=== PATIENT | female | born 1945 | race Caucasian/White ===

== ENCOUNTER 2018-07-27 17:25 | Emergency (ER) | payer OTHER, MEDICARE ==
[~2018-07-27] VITALS: Ht 152.4 cm; Wt 88.5 kg
[2018-07-27 17:25] VITALS: BP_SYST 106
[~2018-07-27 17:25] MED LIST: AMLO5TAB4 PO; CHOL500037 PO; GLU500 PO; HYDR25TA4 PO; LEVO25TA2 PO; LISI-600 PO; LOVA40TA75 PO; PRO20 PO
[2018-07-27 18:00] LABS: BASOPHILS # (AUTO) 0.4 K/uL (0.0-0.2); EOSINOPHILS # (AUTO) 0.2 K/uL (0.0-0.4); MEAN CORPUSCULAR HEMOGLOBIN 34 pg (27-31); MEAN CORPUSCULAR VOLUME 101 fL (79.0-98.0); MONOCYTES # (AUTO) 0.7 K/uL (0.0-1.0); RED CELL DISTRIBUTION WIDTH 11.9 % (9.0-15.0)
[2018-07-27 18:07] LABS: BASOPHILS % (AUTO) 3.5 % (0.0-2.0); EOSINOPHILS % (AUTO) 1.6 % (0.0-4.0); HEMATOCRIT 45.8 % (36-48); HEMOGLOBIN 15.5 g/dL (12.0-16.0); LYMPHOCYTES # (AUTO) 3.3 K/uL (1.0-5.5); LYMPHOCYTES % (AUTO) 33.2 % (20.5-51.5); MEAN CORPUSCULAR HGB CONC 34 % (32-36); MONOCYTES % (AUTO) 7.4 % (1.7-9.3); NEUTROPHILS # (AUTO) 5.4 K/uL (1.8-7.7); NEUTROPHILS % (AUTO) 54.3 % (40.0-70.0); PLATELET COUNT (AUTO) 180 K/uL (130-430); RED BLOOD CELL COUNT(AUTO) 4.52 MIL/uL (4.2-6.2)
[2018-07-27 18:12] LABS: PROTHROMBIN TIME 10.2 SECS (9.5-12.5)
[2018-07-27 18:13] LABS: ANION GAP 15 (5-15); CALCIUM 9.3 mg/dL (8.4-11.0); CHLORIDE 96 mmol/L (98-107); POTASSIUM 4.4 mmol/L (3.5-5.1); SODIUM SERUM 133 mmol/L (136-145); UREA NITROGEN, BLOOD 20 mg/dL (8-21)
[2018-07-27 18:15] LABS: GLUCOSE 477 mg/dL (70-99)
[2018-07-27 18:29] LABS: ALANINE AMINOTRANSFERASE 32 U/L (12-78); ALBUMIN 3.5 g/dL (3.4-4.8); ALCOHOL, BLOOD 167 mg/dL (<10); ASPARTATE AMINOTRANSFERASE 20 U/L (10-37); FREE T4 (FREE THYROXINE) 0.4 ng/dL (0.6-1.6); TOTAL BILIRUBIN 0.5 mg/dL (0.0-1.0)
[2018-07-27] MEDS ORDERED: CANA300T PO (18:31)
[2018-07-27] MEDS ORDERED: CALC1CAP19 PO (18:31)
[2018-07-27] MEDS ORDERED: SITA100T11 PO (18:31)
[2018-07-27] MEDS ORDERED: INSULIN REGULAR, HUMAN 10 UNITS/0.1 ML INJ IVP ONE (18:45)
[2018-07-27 19:40] VITALS: BP_SYST 98
== END 2018-07-27 19:40 | disposition home or self-care (01) ==
LOC: SED 17:25
DX: R53.1 Weakness (principal); R42 Dizziness and giddiness; J45.909 Unspecified asthma, uncomplicated; E11.9 Type 2 diabetes mellitus without complications; I10 Essential (primary) hypertension; E78.5 Hyperlipidemia, unspecified; M19.90 Unspecified osteoarthritis, unspecified site; Z88.0 Allergy status to penicillin; Z88.5 Allergy status to narcotic agent; Z79.899 Other long term (current) drug therapy
CPT/HCPCS: 36415; 71045; 74018; 80053; 82140; 82962; 83605; 83880; 84439; 84484; 85025; 85610; 87040; 93005; 96374; 99285; G0482; J1815

== ENCOUNTER 2019-03-25 19:59 | Inpatient (IN) | payer OTHER, MEDICARE ==
[~2019-03-25] VITALS: Ht 152.4 cm; Wt 81.6 kg
[~2019-03-25 19:59] MED LIST changes: +CALC1CAP19 PO; +CANA300T PO; -GLU500 PO; -HYDR25TA4 PO; +SITA100T11 PO
--- NOTE | 2019-03-25 19:59 | NUR ---
Patient to ER bed 06 to gown for evaluation. Side rails up. Report given to BETTY Tamayo
--- NOTE | 2019-03-25 20:00 | NUR ---
Patient arrived via POV, AAOx4, family brought her in via wheelchair. Patients family states they took her to dinner when she began feeling worse. Patient states she has been feeling bad for approximately 5 days, but today it became worse. Patient states she has had intermittent shortness of breath, general weakness, malaise, and patient had episode where it appears she passed out for approximately 10 seconds, witnessed per family. Patient denies vomiting or diarrhea, but states she has been feeling dizzy and nausea with SOB. Patient states no chest pain, abdominal pain, urinary symptoms. Will continue to follow up and monitor.
--- NOTE | 2019-03-25 20:00 | NUR ---
# 22 gauge angiocath placed to LFA. Use of asceptic technique. Opsite placed over site. Blood return noted. Blood for lab drawn from site. Flushed with 10 cc of normal saline. No evidence of infiltration noted. Patient tolerated well.
[2019-03-25 20:04] VITALS: BP_SYST 108
[2019-03-25] MEDS ORDERED: GLU500 PO (20:10)
[2019-03-25] MEDS ORDERED: ROSU20TA PO (20:10)
--- NOTE | 2019-03-25 20:10 | NUR ---
Medication reconciliation completed with information provided by patient's family. Patient has prescription bottles at bedside. Patient states that she is taking Metfromin 50 mg TID. Any prior medication reconciliation on file was reviewed and corrected.
--- NOTE | 2019-03-25 20:11 | NUR ---
Patient oxygen saturation at 92% on room air, placed on 2L via NC, post O2 98%.
--- NOTE | 2019-03-25 20:27 | NUR ---
ER at bedside examining patient.
[2019-03-25] MEDS ORDERED: NACL 0.9% 1,000 ML IV ONE (20:30)
[2019-03-25 20:41] LABS: BASOPHILS # (AUTO) 0.1 K/uL (0.0-0.2); BASOPHILS % (AUTO) 0.5 % (0.0-2.0); EOSINOPHILS # (AUTO) 0.4 K/uL (0.0-0.4); EOSINOPHILS % (AUTO) 3.1 % (0.0-4.0); HEMATOCRIT 44.7 % (36-48); HEMOGLOBIN 14.6 g/dL (12.0-16.0); LYMPHOCYTES # (AUTO) 3.7 K/uL (1.0-5.5); LYMPHOCYTES % (AUTO) 29.7 % (20.5-51.5); MEAN CORPUSCULAR HEMOGLOBIN 32 pg (27-31); MEAN CORPUSCULAR HGB CONC 33 % (32-36); MEAN CORPUSCULAR VOLUME 99 fL (79.0-98.0); MONOCYTES # (AUTO) 1.3 K/uL (0.0-1.0); MONOCYTES % (AUTO) 10.2 % (1.7-9.3); NEUTROPHILS # (AUTO) 7.1 K/uL (1.8-7.7); NEUTROPHILS % (AUTO) 56.5 % (40.0-70.0); PLATELET COUNT (AUTO) 194 K/uL (130-430); RED BLOOD CELL COUNT(AUTO) 4.51 MIL/uL (4.2-6.2); RED CELL DISTRIBUTION WIDTH 14.2 % (9.0-15.0); WHITE BLOOD COUNT (AUTO) 12.5 K/uL (4.8-10.8)
[2019-03-25 20:48] LABS: ANION GAP 20 (5-15); CALCIUM 9.4 mg/dL (8.4-11.0); CHLORIDE 98 mmol/L (98-107); CREATININE 1.35 mg/dL (0.55-1.30); GLUCOSE 298 mg/dL (70-99); SODIUM SERUM 135 mmol/L (136-145); UREA NITROGEN, BLOOD 21 mg/dL (8-21)
[2019-03-25 21:04] LABS: ALANINE AMINOTRANSFERASE 27 U/L (12-78); ALBUMIN 3.5 g/dL (3.4-4.8); ASPARTATE AMINOTRANSFERASE 19 U/L (10-37); FREE T4 (FREE THYROXINE) 0.6 ng/dL (0.6-1.6); THYROID STIMULATING HORMONE 7.18 uIu/mL (0.34-4.82); TOTAL BILIRUBIN 0.3 mg/dL (0.0-1.0)
[2019-03-25] MEDS ORDERED: NS 500 ML IV ONE (21:45)
[2019-03-25] MEDS ORDERED: GENTAMICIN 120 mg/100 mL NS 100 ML IV ONE (21:45)
[2019-03-25 21:51] LABS: BILIRUBIN,URINE NEGATIVE (NEGATIVE); CLARITY/URINE SL CLOUDY (CLEAR); COLOR,URINE YELLOW (YELLOW); GLUCOSE,URINE TRACE (NEGATIVE); KETONES,URINE TRACE (NEGATIVE); LEUKOCYTE ESTERASE ,URINE NEGATIVE (NEGATIVE); NITRITE, URINE POSITIVE (NEGATIVE); PH,URINE 5.5 (5.0-8.0); PROTEIN URINE TRACE (NEGATIVE)
[2019-03-25] MEDS ORDERED: AZITHROMYCIN 250 MG TABLET PO ONE (22:00)
[2019-03-25] MEDS ORDERED: VANCOMYCIN HCL 1,000 MG in NS 250 ML IV ONE (22:00)
--- NOTE | 2019-03-25 22:00 | NUR ---
Admit orders received from Dr. Miller, entered by RN.
--- NOTE | 2019-03-25 22:01 | NUR ---
Patient will be admitted to care of Dr. Miller. Admitted to Med Surg unit. Will go to room 135. Belongings list completed. Summary report printed. Report will be given at bedside.
[2019-03-25] MEDS ORDERED: VANCOMYCIN HCL 1000 MG/VIAL IV ONE (22:05)
[2019-03-25 22:28] LABS: BLOOD, URINE TRACE (NEGATIVE)
[2019-03-25] MEDS ORDERED: POTASSIUM CHLORIDE 20 MEQ TAB.PRT.SR PO PRN (22:30)
[2019-03-25] MEDS ORDERED: INSULIN LISPRO SLIDING SCALE 100 UNITS/ML VIAL (humaLOG) SUBCUT PRN (22:30)
[2019-03-25] MEDS ORDERED: DOCUSATE SODIUM 100 MG CAPSULE PO PRN (22:30)
[2019-03-25] MEDS ORDERED: ZOLPIDEM TARTRATE 5 MG TABLET PO PRN (22:30)
[2019-03-25] MEDS ORDERED: MAGNESIUM SULFATE 50 ML IV PRN (22:30)
[2019-03-25] MEDS ORDERED: DEXTROSE 50% JECT 50 ML DISP.SYRIN IVP PRN (22:30)
[2019-03-25] MEDS ORDERED: ACETAMINOPHEN 325 MG TABLET PO PRN (22:30)
[2019-03-25] MEDS ORDERED: MUPIROCIN 2% TOPICAL OINTMENT 22 GM NS PRN (22:30)
[2019-03-25 22:35] LABS: BACTERIA,URINE MANY /HPF (None Seen); RBC,URINE 0-3 /HPF (0-3); URINE AMORPHOUS URATE 3+ /HPF (None Seen)
[2019-03-25 22:36] LABS: FINE GRANULAR CASTS,URINE 0-10 /LPF (None Seen); MUCUS,URINE 1+ /LPF (None Seen)
--- NOTE | 2019-03-25 22:40 | NUR ---
ADMISSION NOTE Received patient from ER via judi, received report from Belkis HERNÁNDEZ. Patient admitted with diagnosis of Aspiration Pneumonia. Patient oriented to hospital routine, call light, toileting and safety-patient verbalized understanding.
[2019-03-25 22:44] VITALS: BP_SYST 134
[2019-03-25 23:33] LABS: ANION GAP 20 (5-15); CHLORIDE 100 mmol/L (98-107); CREATININE 1.26 mg/dL (0.55-1.30); GLUCOSE 288 mg/dL (70-99); POTASSIUM 4.2 mmol/L (3.5-5.1); SODIUM SERUM 137 mmol/L (136-145); UREA NITROGEN, BLOOD 19 mg/dL (8-21)
[2019-03-26] VITALS (20 sets, daily range): BP systolic 107–164
--- NOTE | 2019-03-26 00:40 | NUR ---
TRANSFER TO ICU Patient transferred to ICU at this time. Bedside report given to BETTY Reed. Patient shows no s/s of acute distress. Breathing even and unlabored. IVF infusing well, IV site patent, no signs of infiltration or infection noted. Skin warm and dry to touch. No s/s of hypoglycemia noted.
--- NOTE | 2019-03-26 00:41 | NUR ---
RECEIVED TRANSFERRED FROM [facility]/TELE A 73 YO W F W/ DIAGNOSIS OF ASPIRATION PNEUMONIA. AWAKE, ALERT, ORIENTED X4. IN NO APPARENT DISTRESS. VSS. DENIES PAIN. BREATH SOUNDS ESSENTIALLY CLEAR. ON ROOM AIR. POX 97%. BOWEL SOUNDS (+). PULSES PALPABLE. SKIN W/D. COLOR SATISFACTORY. HOB UP TO COMFORT. SIDE RAILS UP X 3. CALL LIGHTS WITHIN REACH . SINUS RHYTHM.
[2019-03-26] MEDS: NACL 0.9% 1,000 ML IV SCH ×3 (01:03→14:14)
[2019-03-26] MEDS ORDERED: INSULIN REGULAR, HUMAN 100 UNITS in NS 99 ML IV PRN ×2 (01:45)
--- NOTE | 2019-03-26 01:47 | NUR ---
called Dr. Miller for orders.
--- NOTE | 2019-03-26 01:50 | NUR ---
DR ROJO CALLED, UPDATED ON STATUS. NEW ORDERS GIVEN AND IMPLEMENTED.
--- NOTE | 2019-03-26 02:00 | NUR ---
ACCU-CHEK 128, INSULIN DRIP STARTED AT 0.5 UNITS/HR PER HYPERGLYCEMIC PROTOCOL. URINATED 250CC CLEAR ADALI URINE VIA BEDPAN.
--- NOTE | 2019-03-26 03:00 | NUR ---
ACCU-CHEK 97, INSULIN DRIP OFF AT THIS TIME.
--- NOTE | 2019-03-26 03:15 | NUR ---
ATIVAN 1 MG IVP GIVEN FOR C/O ANXIETY.
[2019-03-26] MEDS: LORazepam 2 MG/ML VIAL IVP PRN (03:17)
--- NOTE | 2019-03-26 04:00 | NUR ---
ACCU-CHEK 131, INSULIN DRIP RESTARTED AT 0.5 UNITS/HR PER HYPERGLYCEMIC INSULIN PROTOCOL.
--- NOTE | 2019-03-26 04:52 | NUR ---
called in morning consult to Dr. Medrano's exchange. Spoke to Luciano. receives all consults at 0800.
--- NOTE | 2019-03-26 05:00 | NUR ---
ACCU-CHEK 161, INSULIN DRIP AT 0.5 UNITS/HR.
[2019-03-26 05:01] LABS: EOSINOPHILS # (AUTO) 0.3 K/uL (0.0-0.4); MEAN CORPUSCULAR HEMOGLOBIN 33 pg (27-31)
[2019-03-26 05:19] LABS: HEMATOCRIT 37.8 % (36-48); HEMOGLOBIN 12.8 g/dL (12.0-16.0); MEAN CORPUSCULAR HGB CONC 34 % (32-36); MEAN CORPUSCULAR VOLUME 97 fL (79.0-98.0); NEUTROPHILS % (AUTO) 60.8 % (40.0-70.0); PLATELET COUNT (AUTO) 156 K/uL (130-430); RED BLOOD CELL COUNT(AUTO) 3.88 MIL/uL (4.2-6.2); RED CELL DISTRIBUTION WIDTH 13.7 % (9.0-15.0); WHITE BLOOD COUNT (AUTO) 8.9 K/uL (4.8-10.8)
[2019-03-26 05:20] LABS: BASOPHILS % (AUTO) 0.3 % (0.0-2.0); EOSINOPHILS % (AUTO) 2.9 % (0.0-4.0); LYMPHOCYTES # (AUTO) 2.3 K/uL (1.0-5.5); LYMPHOCYTES % (AUTO) 25.6 % (20.5-51.5); MONOCYTES # (AUTO) 0.9 K/uL (0.0-1.0); MONOCYTES % (AUTO) 10.4 % (1.7-9.3); NEUTROPHILS # (AUTO) 5.4 K/uL (1.8-7.7)
[2019-03-26 05:24] LABS: ANION GAP 7 (5-15); CALCIUM 8.6 mg/dL (8.4-11.0); CHLORIDE 108 mmol/L (98-107); CREATININE 1.12 mg/dL (0.55-1.30); GLUCOSE 136 mg/dL (70-99); POTASSIUM 4.1 mmol/L (3.5-5.1); SODIUM SERUM 139 mmol/L (136-145); UREA NITROGEN, BLOOD 18 mg/dL (8-21)
[2019-03-26] MEDS ORDERED: metroNIDAZOLE 500 mg/NS 100 ML IV ONE (06:00)
[2019-03-26] MEDS ORDERED: metroNIDAZOLE 250 mg/NS 50 ML IV SCH (06:00)
--- NOTE | 2019-03-26 06:00 | NUR ---
SLEPT FOR LONG PERIODS OF TIME. RESTING, WATCHING TV. ACCU-CHEK 166, INSULIN DRIP AT 0.5 UNITS/HR. NO COMPLAINTS OFFERED AT THIS TIME. REMAINS IN GUARDED CONDITION.
[2019-03-26] MEDS: LEVOTHYROXINE SODIUM 0.025 MG TABLET PO SCH (06:11)
--- NOTE | 2019-03-26 07:20 | NUR ---
Opening Note Received plan of care via sbar from endorsing nurse Derek RN. Completed pt round.
[2019-03-26] MEDS ORDERED: metFORMIN HCL 500 MG TABLET PO SCH (08:00)
--- NOTE | 2019-03-26 08:20 | NUR ---
Dr. Miller at bedside. Ordered to stop insulin drip.
--- NOTE | 2019-03-26 08:27 | NUR ---
Dr. Miller in to see pt. Orders left.
[2019-03-26] MEDS: MORPHINE 2 MG/ML INJ. SYRINGE IVP PRN (08:28)
[2019-03-26] MEDS: LEVOFLOXACIN 500 MG/D5W 100 ML IV SCH (09:32)
[2019-03-26] MEDS: ATORVASTATIN 20 MG TABLET PO SCH (09:32)
[2019-03-26] MEDS: FLUoxetine HCL 20 MG CAPSULE (PROzac) PO SCH (09:32)
[2019-03-26] MEDS: LISINOPRIL 20 MG TABLET PO SCH (09:32)
[2019-03-26] MEDS: HEPARIN SODIUM,PORCINE 5000 UNITS/ML VIAL SUBCUT SCH ×2 (09:38→20:48)
[2019-03-26] MEDS ORDERED: GLUCOSE 15 GM GEL (in 37.5 GM TUBE) PO PRN (12:15)
[2019-03-26] MEDS ORDERED: DEXTROSE 50%-WATER 50 ML DISP.SYRIN IVP PRN (12:15)
[2019-03-26] MEDS: INSULIN REGULAR, HUMAN 100 UNITS/ML, 10 ML VIAL (humuLIN R) SUBCUT PRN ×3 (12:15→20:46)
[2019-03-26] MEDS ORDERED: D5W 1,000 ML IV PRN (12:15)
--- NOTE | 2019-03-26 12:30 | NUR ---
Received call from Dr. Miller who advised to put PT on R insulin sliding scale, Accu check ACHS, and NS @ 90 mls/hr
--- NOTE | 2019-03-26 12:36 | NUR ---
DC PLAN ASSESSMENT: CM met with Patient At bedside for DC planning Assessment. Patient stated she lives at home alone. She was independent with walking and ADLs. She used to have a caregiver from [facility] that comes from 12pm-4pm for 3X/week. [facility] is currently working on finding a new caregiver for patient. Patient stated she has a new PCP but unable to remember the name. Patient asked CM to contact Son (Queenie ) to obtain Information. CM contacted patient son (Queenie), who stated patient has a new PCP but does not have that information currently with him. He will provide that information later when he come visit patient at hospital. Queenie also confirmed that [facility] is still in the process of finding a new caregiver and hopefully that caregiver will be in place before patient gets Discharge. Patient was agreeable to Home with Home Health. However, was not open to SNF at this time. CM informed son to contact CM/DCP with any questions or concern. CM/DCP to follow up with DC plan needs.
[2019-03-26] MEDS: metroNIDAZOLE 500 mg/NS 100 ML IV SCH ×2 (14:14→21:08)
--- NOTE | 2019-03-26 14:34 | NUR ---
Dietitian Recommendations * Recommend CCHO, cardiac diet LP, RD Please refer to Nutrition Assessment for details.
--- NOTE | 2019-03-26 18:35 | NUR ---
RECEIVED THE PATIENT FROM ICU TRANSFER TO TELEMETRY Received report from BETTY Radford from ICU at bedside. Patient transfer from wheelchair to bed with assistant office manager. AAO x 4. Denied of pain. Skin warm and dry to touch. IV intact to LFA, no redness, no swelling, no drainage. On NS at 90mo.hr, infusing well. Discussed the safety issue, use call light when needs help, and plan of care, verbally understanding. Safety measure maintained. Call light within reached. Bed locked in low position, side rails up, bed alarm on. Will continue to monitor.
--- NOTE | 2019-03-26 19:11 | NUR ---
CLOSING NOTE Patient sitting in upright position and eating dinner. No acute distress. IV intact, IVF infusing well. Safety measure maintained. Call light within reached. Bed locked in low position, side rails up, bed alarm on. Will endorse to night nurse.
--- NOTE | 2019-03-26 19:30 | NUR ---
OPENING NOTES RECEIVED PATIENT IN BED AAO X4. BREATHING UNLABORED ON ROOM AIR. DENIES ANY PAIN AT THIS TIME. IVF INFUSING ORDERED. PLAN OF CARE REVIEWED WITH PATIENT . BE DIN LOWEST LOCKED POSITION WITH BED ALARM ON. CALL LIGHT WITH IN REACH.
--- NOTE | 2019-03-26 20:46 | NUR ---
BLOOD SUGAR PATIENT ROUTINE FINGER STICK SUGAR 206. COVERED WITH 4 UNITS REGULAR INSULIN PER SLIDING SCALE ORDER.
--- NOTE | 2019-03-26 21:08 | NUR ---
ATB PATIENT DUE ANTIBIOTIC INFUSE. IV LINE INTACT AND PATENT.
[2019-03-26] MEDS ORDERED: LEVOFLOXACIN 250 MG/D5W 50 ML IV SCH (22:00)
--- NOTE | 2019-03-27 00:50 | NUR ---
OOB PATIENT ASSISTED OUT OF BED FOR BEDSIDE COMMODE USE. DENIES ANY PAIN. BREATHING UNLABORED.
--- NOTE | 2019-03-27 03:00 | NUR ---
ROUNDS PATIENT RESTING IN BED. BREATHING UNLABORED ON ROOM AIR. IVF INFUSING. CALL LIGHT WITH IN REACH.
[2019-03-27] MEDS: NACL 0.9% 1,000 ML IV SCH ×3 (04:12→21:13)
--- NOTE | 2019-03-27 04:57 | NUR ---
OOB PATIENT ASSISTED OUT OF BED FOR BED SIDE COMMODE USE. DENIES ANY PAIN.
[2019-03-27 05:00] VITALS: BP_SYST 154
[2019-03-27] MEDS: metroNIDAZOLE 500 mg/NS 100 ML IV SCH ×3 (05:29→21:12)
[2019-03-27] MEDS: LEVOTHYROXINE SODIUM 0.025 MG TABLET PO SCH (06:04)
--- NOTE | 2019-03-27 06:04 | NUR ---
MED PASS/BLOOD SUGAR PATIENT DUE MEDICATION GIVEN AND TOLERATED. AM FINGER STICK SUGAR 123.
[2019-03-27 06:07] LABS: BASOPHILS % (AUTO) 0.4 % (0.0-2.0); EOSINOPHILS # (AUTO) 0.4 K/uL (0.0-0.4); EOSINOPHILS % (AUTO) 6.4 % (0.0-4.0); HEMOGLOBIN 13.4 g/dL (12.0-16.0); LYMPHOCYTES # (AUTO) 1.8 K/uL (1.0-5.5); LYMPHOCYTES % (AUTO) 30.4 % (20.5-51.5); MEAN CORPUSCULAR HEMOGLOBIN 33 pg (27-31); MEAN CORPUSCULAR HGB CONC 33 % (32-36); MEAN CORPUSCULAR VOLUME 98 fL (79.0-98.0); MONOCYTES # (AUTO) 0.6 K/uL (0.0-1.0); MONOCYTES % (AUTO) 9.6 % (1.7-9.3); NEUTROPHILS # (AUTO) 3.1 K/uL (1.8-7.7); NEUTROPHILS % (AUTO) 53.2 % (40.0-70.0); PLATELET COUNT (AUTO) 139 K/uL (130-430); RED BLOOD CELL COUNT(AUTO) 4.09 MIL/uL (4.2-6.2); RED CELL DISTRIBUTION WIDTH 13.8 % (9.0-15.0)
[2019-03-27 06:16] LABS: ANION GAP 10 (5-15); CALCIUM 8.7 mg/dL (8.4-11.0); CHLORIDE 109 mmol/L (98-107); CREATININE 1.06 mg/dL (0.55-1.30); GLUCOSE 135 mg/dL (70-99); SODIUM SERUM 144 mmol/L (136-145); UREA NITROGEN, BLOOD 16 mg/dL (8-21)
--- NOTE | 2019-03-27 06:31 | NUR ---
CLOSING NOTES PATIENT RESTING IN BED WATCHING TV. BREATHING UNLABORED ON ROOM AIR. DENIES ANY PAIN. IVF INFUSING WITH IV LINE INTACT. PATIENT NEEDS ATTENDED. BED IN LOWEST LOCKED POSITION WITH BED ALARM ON. CALL LIGHT WITH IN REACH.
[2019-03-27 07:10] LABS: WHITE BLOOD COUNT (AUTO) 5.8 K/uL (4.8-10.8)
--- NOTE | 2019-03-27 07:28 | NUR ---
OPENING NOTE Patient resting in the bed. No acute distress. AAO x 4. Denied of pain. Skin warm and dry touch. IV intact to LFA, no redness, no swelling, no drainage. On NS at 90ml/hr, infusing well. Discussed the safety issue, use call light when needs help, and plan of care, verbally understanding. Safety measure maintained. Call light within reached. Bed locked in low position, side rails up, bed alarm on. Will continue to monitor.
[2019-03-27 07:50] VITALS: BP_SYST 140
[2019-03-27] MEDS: LEVOFLOXACIN 500 MG/D5W 100 ML IV SCH (09:21)
[2019-03-27] MEDS: LISINOPRIL 20 MG TABLET PO SCH (09:21)
[2019-03-27] MEDS: FLUoxetine HCL 20 MG CAPSULE (PROzac) PO SCH (09:21)
[2019-03-27] MEDS: ATORVASTATIN 20 MG TABLET PO SCH (09:21)
[2019-03-27] MEDS: HEPARIN SODIUM,PORCINE 5000 UNITS/ML VIAL SUBCUT SCH ×2 (09:24→20:41)
--- NOTE | 2019-03-27 09:37 | NUR ---
BEDSIDE COMMODE Assisted patient to use bedside commode. Void freely with yellow urine and regular stool noted. Good pericare provided. Assisted back to bed. No acute distress. Safety measure maintained. Call light within reached. Bed locked in low position, side rails up, bed alarm on. Continue to monitor.
--- NOTE | 2019-03-27 10:57 | NUR ---
MAGNESIUM SULFATE GIVEN Patient's magnesium level=1.6 this morning. Magnesium, Sulfate 2gm IVPB given as ordered. Patient resting in the bed and watching TV. No acute distress. Safety measure maintained. Call light within reached. Bed locked in low position, side rails up, bed alarm on. Continue to monitor.
[2019-03-27] MEDS: INSULIN REGULAR, HUMAN 100 UNITS/ML, 10 ML VIAL (humuLIN R) SUBCUT PRN ×3 (11:23→20:42)
--- NOTE | 2019-03-27 11:23 | NUR ---
KC=814 Regular insulin 2 units given per sliding scale for GL=839. Safety measure maintained. Call light within reached. Bed locked in low position, side rails up, bed alarm on. Continue to monitor.
[2019-03-27 12:25] VITALS: BP_SYST 117
--- NOTE | 2019-03-27 13:47 | NUR ---
DC PLANNING: CM SPOKE WITH PATIENT AT BEDSIDE REGARDING DC PLANNING TO SNF. PATIENT STATED DR. ROJO HAD SPOKE WITH HER EARLIER TODAY REGARDING SNF PLACEMENT. PATIENT WAS AGREEABLE TO SNF FOR SHORT TERM.
--- NOTE | 2019-03-27 14:05 | NUR ---
BEDSIDE COMMODE Assisted patient to use bedside commode. Void with yellow urine. No hematuria/dysuria noted. Good pericare [id number]. Assisted back to bed. IV intact, Flagyl infusing well. Safety measure maintained. Call light within reached. Bed locked in low position, side rails up, bed alarm on. Continue to monitor.
--- NOTE | 2019-03-27 14:39 | NUR ---
Discharge Planning: DCP faxed pt referral to [facility] (f [phone] p [phone]) DCP to follow. Addendum: 03/27/19 at 1614 by Marilee TAMAYO [facility] (f [phone] p [phone]) 15A Per Thalia schulz accepted
--- NOTE | 2019-03-27 15:42 | NUR ---
DC PLANNING: CM MET WITH PATIENT AND PATIENT'S SON (GERARDO) AT BEDSIDE AND DISCUSSED DC PLANNING FOR SNF. PER GERARDO, HE WILL BE CHECKING [facility] TOMORROW MORNING AND WILL LET US KNOW IF HE IS AGREEABLE WITH THE PLACE. GERARDO ALSO WOULD LIKE TO CHECK FOR SNF AROUND [place] TO BE CLOSER TO HOME. CM/DCP TO FOLLOW UP NEEDED.
[2019-03-27] MEDS: MORPHINE 2 MG/ML INJ. SYRINGE IVP PRN (16:04)
--- NOTE | 2019-03-27 16:06 | NUR ---
MORPHINE GIVEN Patient c/o bilateral shoulders pain 6/10, Morphine 1mg IVP given as ordered. No acute distress. Safety measure maintained. Call light within reached. Bed locked in low position, side rails up, bed alarm on. Continue to monitor.
[2019-03-27 16:31] VITALS: BP_SYST 121
--- NOTE | 2019-03-27 18:45 | NUR ---
CLOSING NOTE Patient resting in the bed. No acute distress. No c/o pain at this time. Skin warm and dry touch. IV intact to LFA, no redness, no swelling, no drainage. On NS at 90ml/hr, infusing well. All needs met and attended. Safety measure maintained. Call light within reached. Bed locked in low position, side rails up, bed alarm on. Will endorse to night nurse.
--- NOTE | 2019-03-27 19:30 | NUR ---
OPENING NOTE RECEIVED CARE OF PT. PT AAOX4, SITTING UP IN BED, WITH FAMILY AT BEDSIDE. BREATHING IS UNLABORED TO ROOM AIR, NO S/S OF ACUTE DISTRESS, PT DENIES PAIN OR DISCOMFORT. PT'S IV TO LFA IS INTACT AND INFUSING NS AT 90 CC/HR. PT ORIENTED TO USE OF CALL LIGHT AND ENCOURAGED TO CALL FOR ANY ASSISTANCE. SAFETY PRECAUTIONS ARE IN PLACE: BED IS LOCKED IN LOWEST POSITION, CALL LIGHT IS WITH PT, SIDE RAILS UP X2, BED ALARM ON. WILL MONITOR.
[2019-03-27 20:00] VITALS: BP_SYST 142
--- NOTE | 2019-03-27 20:40 | NUR ---
ACCUCHECK BLOOD SUGAR OF 255, 6 UNITS OF REGULAR INSULIN ADMINISTERED PER SLIDING SCALE.
--- NOTE | 2019-03-27 21:12 | NUR ---
SCHEDULED FLAGYL PT GIVEN SCHEDULED FLAGYL VIA IVPB. IV IS INTACT AND INFUSING ORDERED. FLAGYL MEDICATION AND POTENTIAL SIDE EFFECTS EXPLAINED TO PT. PT VERBALIZED UNDERSTANDING. SAFETY MAINTAINED. WILL MONITOR.
--- NOTE | 2019-03-27 23:35 | NUR ---
RN ROUNDS: PT RESTING IN BED WITH EYES CLOSED. VISIBLE SYMMETRICAL RISE AND FALL OF CHEST TO ROOM AIR. NO S/S OF ACUTE DISTRESS. PT APPEARS COMFORTABLE WITH NO SIGNS OF PAIN OR DISCOMFORT. IVF INFUSING AT ORDERED RATE. SAFETY PRECAUTIONS ARE IN PLACE. WILL MONITOR.
[2019-03-28 00:56] VITALS: BP_SYST 112
--- NOTE | 2019-03-28 01:15 | NUR ---
RN ROUNDS: PT RESTING IN BED, RISE AND FALL OF CHEST BILATERALLY TO ROOM AIR, BREATHING IS UNLABORED. NO S/S OF DISTRESS. IVF INFUSING ORDERED. SAFETY MAINTAINED. WILL MONITOR.
--- NOTE | 2019-03-28 03:11 | NUR ---
BEDSIDE COMMODE PT ASSISTED TO USE BEDSIDE COMMODE. PT TOLERATED WELL. PT RETURNED TO BED AND REPOSITIONED HERSELF FOR COMFORT. PT ENCOURAGED TO CALL FOR ASSISTANCE, CALL LIGHT IS WITH PT. SAFETY MAINTAINED. WILL MONITOR.
[2019-03-28] MEDS: metroNIDAZOLE 500 mg/NS 100 ML IV SCH ×2 (05:11→14:00)
[2019-03-28] MEDS: LORazepam 2 MG/ML VIAL IVP PRN ×2 (05:17→15:53)
--- NOTE | 2019-03-28 05:17 | NUR ---
ANXIETY/ATIVAN PT REPORTING ANXIETY. ATIVAN 1 MG IVP ADMINISTERED. MEDICATION ACTION AND POTENTIAL SIDE EFFECTS EXPLAINED TO PT. PT VERBALIZED UNDERSTANDING. SAFETY PRECAUTIONS ARE IN PLACE, CALL LIGHT IS WITH PT. WILL MONITOR.
[2019-03-28] MEDS: NACL 0.9% 1,000 ML IV SCH (05:34)
[2019-03-28 06:01] LABS: BASOPHILS % (AUTO) 0.3 % (0.0-2.0); EOSINOPHILS # (AUTO) 0.4 K/uL (0.0-0.4); EOSINOPHILS % (AUTO) 6.1 % (0.0-4.0); HEMATOCRIT 39.2 % (36-48); HEMOGLOBIN 12.9 g/dL (12.0-16.0); LYMPHOCYTES # (AUTO) 1.7 K/uL (1.0-5.5); MEAN CORPUSCULAR HEMOGLOBIN 33 pg (27-31); MEAN CORPUSCULAR HGB CONC 33 % (32-36); MEAN CORPUSCULAR VOLUME 99 fL (79.0-98.0); MONOCYTES # (AUTO) 0.6 K/uL (0.0-1.0); MONOCYTES % (AUTO) 9.9 % (1.7-9.3); NEUTROPHILS # (AUTO) 3.5 K/uL (1.8-7.7); NEUTROPHILS % (AUTO) 56.7 % (40.0-70.0); PLATELET COUNT (AUTO) 147 K/uL (130-430); RED BLOOD CELL COUNT(AUTO) 3.94 MIL/uL (4.2-6.2); RED CELL DISTRIBUTION WIDTH 13.7 % (9.0-15.0); WHITE BLOOD COUNT (AUTO) 6.2 K/uL (4.8-10.8)
[2019-03-28] MEDS: LEVOTHYROXINE SODIUM 0.025 MG TABLET PO SCH (06:16)
--- NOTE | 2019-03-28 06:55 | NUR ---
CLOSING NOTE PT RESTING IN BED WITH EYES CLOSED. NO S/S OF DISTRESS, BREATHING IS UNLABORED TO ROOM AIR ,IVF ARE INFUSING. ACCUCHECK SHOWED BLOOD SUGAR OF 140, NO INSULIN COVERAGE PER SLIDING SCALE. ALL NEEDS MET DURING SHIFT. SAFETY MAINTAINED. WILL CONTINUE TO MONITOR UNTIL PT CARE IS ENDORSED TO DAY SHIFT RN.
--- NOTE | 2019-03-28 07:12 | NUR ---
received report at the bedside. patient aaox 4. breathing even and unlabored. lungs bilaterally clear but diminished at the bases. abdomen soft and non distended. iv access on the left forearm #22. with Normal Saline At 90cc/hr infusing on well. Bed in low position, alarmed and locked. will continue to monitor patients status. maintained fall and safety measures. instructed to call for assistance.
[2019-03-28 07:31] LABS: ANION GAP 11 (5-15); CALCIUM 8.9 mg/dL (8.4-11.0); CHLORIDE 107 mmol/L (98-107); CREATININE 1.04 mg/dL (0.55-1.30); GLUCOSE 139 mg/dL (70-99); POTASSIUM 3.7 mmol/L (3.5-5.1); SODIUM SERUM 140 mmol/L (136-145); UREA NITROGEN, BLOOD 15 mg/dL (8-21)
[2019-03-28 08:20] VITALS: BP_SYST 162
[2019-03-28] MEDS: FLUoxetine HCL 20 MG CAPSULE (PROzac) PO SCH (08:38)
[2019-03-28] MEDS: ATORVASTATIN 20 MG TABLET PO SCH (08:38)
[2019-03-28] MEDS: LISINOPRIL 20 MG TABLET PO SCH (08:39)
[2019-03-28] MEDS: LEVOFLOXACIN 500 MG/D5W 100 ML IV SCH (08:40)
[2019-03-28] MEDS: HEPARIN SODIUM,PORCINE 5000 UNITS/ML VIAL SUBCUT SCH (08:47)
--- NOTE | 2019-03-28 08:48 | NUR ---
DR ROJO CAME AND DISCHARGE PATIENT TO SNF. WHILE AWAITING FOR THE SON TO CONFIRM [facility]ITH[facility] OR [facility].
--- NOTE | 2019-03-28 09:00 | NUR ---
due medication given as ordered.
--- NOTE | 2019-03-28 10:54 | NUR ---
patient resting and watching tv. called [facility], if son chooses where to go to Snf facility.
--- NOTE | 2019-03-28 10:59 | NUR ---
DC PLANNING: CM SPOKE WITH PATIENT'S SON (GERARDO BARROS) @ [phone], PATIENT'S SON WENT TO SEE [facility] AND WAS AGREEABLE TO HAVE PATIENT DISCHARGE TO [facility]. Addendum: 03/28/19 at 1209 by Kinjal Wray RN CM CONTACTED PATIENT'S SON (GERARDO) AND INFORMED HIM OF THE DISCHARGE TO [facility]. PATIENT'S SON WAS AGREEABLE TO THE DISCHARGE. CM INFORMED GERARDO TRANSPORTATION BORING MACHINE SET UP OPERATOR JIG TIME AND ROOM NUMBER AT [facility].
[2019-03-28] MEDS: INSULIN REGULAR, HUMAN 100 UNITS/ML, 10 ML VIAL (humuLIN R) SUBCUT PRN (11:59)
[2019-03-28 12:00] VITALS: BP_SYST 152
--- NOTE | 2019-03-28 12:11 | NUR ---
Discharge Planning: DCP arrange transportation with [facility] ([phone]) 3:00pm P/U to [facility] (f [phone] p [phone]) [id number]. Nurse made aware and packet taken to nurse station.
[2019-03-28 12:59] VITALS: BP_SYST 136
--- NOTE | 2019-03-28 13:11 | NUR ---
Sbar report given to Eileen HERNÁNDEZ from [facility] going to room 15-A. and black pickler time is 1500pm today. by [facility].
--- NOTE | 2019-03-28 15:01 | NUR ---
EYEGLASSES SENT TO HOME WITH GERARDO THE SON. NO OTHER BELONGINGS NOTED.
--- NOTE | 2019-03-28 15:26 | NUR ---
AWAITING FOR THE [facility] TO MAKE UP MAN
--- NOTE | 2019-03-28 15:30 | NUR ---
MEDICATION SIDE EFFECTS FACT SHEET INCLUDED IN THE DISCHARGE INSTRUCTIONS.
--- NOTE | 2019-03-28 15:40 | NUR ---
DISCHARGE INSTRUCTION GIVEN TO [facility]. DISCHARGE INSTRUCTION SIGNED BY THE PATIENT. PATIENT STABLE FOR NOW. EXCITED TO GO TO PRISON.
--- NOTE | 2019-03-28 15:53 | NUR ---
ANXIETY/ATIVAN 1 MG IV GIVEN. FLUSH WITH NORMAL SALINE.
--- NOTE | 2019-03-28 16:15 | NUR ---
PATIENT ENROLLMENT NURSE BY AMBULANCE AT THIS TIME. BP 154/87. HR 69. NO PAIN NOR ACUTE DISTRESS NOTED.
== END 2019-03-28 15:15 | DRG 871 ==
LOC: SED 19:59 → SMU 21:59 → STU 23:06 → SIC 03-26 00:37 → STU 03-26 18:25 → SMU 03-27 18:32
PROVIDERS: ADMIT General Practice; ATTEND General Practice
DX: A41.9 Sepsis, unspecified organism (principal); N17.0 Acute kidney failure with tubular necrosis; E11.10 Type 2 diabetes mellitus with ketoacidosis without coma; J18.9 Pneumonia, unspecified organism; N39.0 Urinary tract infection, site not specified; E03.9 Hypothyroidism, unspecified; E78.5 Hyperlipidemia, unspecified; F32.9 Major depressive disorder, single episode, unspecified; I10 Essential (primary) hypertension; M19.90 Unspecified osteoarthritis, unspecified site; Z88.0 Allergy status to penicillin; Z88.5 Allergy status to narcotic agent; Z79.899 Other long term (current) drug therapy
CPT/HCPCS: 36415; 36600; 71045; 80048; 80053; 81000-TC; 82803-TC; 82962; 83036; 83605; 83735-TC; 83880; 84439; 84443-TC; 84484; 85025; 87040-TC; 87081; 87086; 88305; 93005; 96361; 96365; 99285; G0378; J1644; J1815; J1956; J2060; J2270; J3370; J3475; J3490; J7030; J7040; Q0144

== ENCOUNTER 2019-08-05 18:26 | Inpatient (IN) | payer OTHER, MEDICARE ==
[~2019-08-05] VITALS: Ht 152.4 cm; Wt 79.8 kg
[~2019-08-05 18:26] MED LIST changes: -AMLO5TAB4 PO; -CALC1CAP19 PO; -CANA300T PO; -CHOL500037 PO; -LOVA40TA75 PO; +ROSU20TA2 PO; -SITA100T11 PO
[2019-08-05 18:30] VITALS: BP_SYST 132
[2019-08-05] MEDS ORDERED: ONDANSETRON HCL 4 MG/2 ML VIAL IVP ONE (20:30)
[2019-08-05] MEDS ORDERED: cefTRIAXone 1 GM IVPB PREMIX 50 ML IV ONE (20:30)
[2019-08-05] MEDS ORDERED: NACL 0.9% 1,000 ML IV ONE (20:30)
[2019-08-05 20:56] LABS: BASOPHILS # (AUTO) 0.1 K/uL (0.0-0.2); BASOPHILS % (AUTO) 0.6 % (0.0-2.0); EOSINOPHILS # (AUTO) 1.4 K/uL (0.0-0.4); EOSINOPHILS % (AUTO) 12.9 % (0.0-4.0); HEMATOCRIT 44.8 % (36-48); HEMOGLOBIN 15.3 g/dL (12.0-16.0); LYMPHOCYTES # (AUTO) 2.7 K/uL (1.0-5.5); LYMPHOCYTES % (AUTO) 25.9 % (20.5-51.5); MEAN CORPUSCULAR HEMOGLOBIN 33 pg (27-31); MEAN CORPUSCULAR HGB CONC 34 % (32-36); MEAN CORPUSCULAR VOLUME 96 fL (79.0-98.0); MONOCYTES # (AUTO) 0.9 K/uL (0.0-1.0); MONOCYTES % (AUTO) 8.4 % (1.7-9.3); NEUTROPHILS # (AUTO) 5.5 K/uL (1.8-7.7); NEUTROPHILS % (AUTO) 52.2 % (40.0-70.0); PLATELET COUNT (AUTO) 162 K/uL (130-430); RED BLOOD CELL COUNT(AUTO) 4.64 MIL/uL (4.2-6.2); WHITE BLOOD COUNT (AUTO) 10.5 K/uL (4.8-10.8)
[2019-08-05 21:03] LABS: ANION GAP 11 (5-15); CALCIUM 9.6 mg/dL (8.4-11.0); CHLORIDE 99 mmol/L (98-107); CREATININE 1.39 mg/dL (0.55-1.30); GLUCOSE 185 mg/dL (70-99); POTASSIUM 4.7 mmol/L (3.5-5.1); SODIUM SERUM 136 mmol/L (136-145); UREA NITROGEN, BLOOD 26 mg/dL (8-21)
[2019-08-05 21:09] LABS: ALANINE AMINOTRANSFERASE 20 U/L (12-78); ALBUMIN 3.8 g/dL (3.4-4.8); ASPARTATE AMINOTRANSFERASE 15 U/L (10-37); TOTAL BILIRUBIN 0.4 mg/dL (0.0-1.0)
[2019-08-05 21:43] LABS: BILIRUBIN,URINE NEGATIVE (NEGATIVE); BLOOD, URINE NEGATIVE (NEGATIVE); COLOR,URINE YELLOW (YELLOW); GLUCOSE,URINE NEGATIVE (NEGATIVE); KETONES,URINE NEGATIVE (NEGATIVE); LEUKOCYTE ESTERASE ,URINE 1+ (NEGATIVE); NITRITE, URINE POSITIVE (NEGATIVE); PROTEIN URINE NEGATIVE (NEGATIVE); UROBILINOGEN,URINE 0.2 (0.2-1.0)
[2019-08-05] MEDS ORDERED: INSULIN REGULAR, HUMAN 100 UNITS/ML, 10 ML VIAL (humuLIN R) SUBCUT PRN (21:45)
[2019-08-05 21:54] LABS: CLARITY/URINE HAZY (CLEAR)
[2019-08-05 21:57] LABS: BACTERIA,URINE MODERATE /HPF (None Seen); MUCUS,URINE None Seen /LPF (None Seen); RBC,URINE NONE SEEN /HPF (0-3)
[2019-08-05] MEDS ORDERED: metformin PO (22:53)
[2019-08-05] MEDS ORDERED: LEVO25TA2 PO (22:53)
[2019-08-05 23:37] VITALS: BP_SYST 153
[2019-08-06] MEDS ORDERED: cefTRIAXone 1 GM VIAL ONE (00:22)
[2019-08-06] MEDS: 0.45% NACL 1,000 ML IV SCH ×2 (00:29→11:15)
[2019-08-06] MEDS: cefTRIAXone 1 GM in D5W 50 ML IV SCH ×2 (00:41→20:12)
[2019-08-06 07:36] LABS: BASOPHILS % (AUTO) 0.4 % (0.0-2.0); EOSINOPHILS # (AUTO) 1.7 K/uL (0.0-0.4); EOSINOPHILS % (AUTO) 17.1 % (0.0-4.0); HEMATOCRIT 41.6 % (36-48); HEMOGLOBIN 14.2 g/dL (12.0-16.0); LYMPHOCYTES # (AUTO) 2.8 K/uL (1.0-5.5); MEAN CORPUSCULAR HEMOGLOBIN 33 pg (27-31); MEAN CORPUSCULAR HGB CONC 34 % (32-36); MEAN CORPUSCULAR VOLUME 96 fL (79.0-98.0); MONOCYTES # (AUTO) 0.9 K/uL (0.0-1.0); MONOCYTES % (AUTO) 8.8 % (1.7-9.3); NEUTROPHILS # (AUTO) 4.5 K/uL (1.8-7.7); NEUTROPHILS % (AUTO) 45.7 % (40.0-70.0); PLATELET COUNT (AUTO) 137 K/uL (130-430); RED BLOOD CELL COUNT(AUTO) 4.33 MIL/uL (4.2-6.2); WHITE BLOOD COUNT (AUTO) 9.8 K/uL (4.8-10.8)
[2019-08-06 07:40] LABS: ALANINE AMINOTRANSFERASE 21 U/L (12-78); ALBUMIN 3.6 g/dL (3.4-4.8); ANION GAP 11 (5-15); ASPARTATE AMINOTRANSFERASE 14 U/L (10-37); CALCIUM 8.8 mg/dL (8.4-11.0); CHLORIDE 101 mmol/L (98-107); CREATININE 1.15 mg/dL (0.55-1.30); GLUCOSE 154 mg/dL (70-99); POTASSIUM 4.2 mmol/L (3.5-5.1); SODIUM SERUM 138 mmol/L (136-145); TOTAL BILIRUBIN 0.3 mg/dL (0.0-1.0); UREA NITROGEN, BLOOD 21 mg/dL (8-21)
[2019-08-06 08:05] VITALS: BP_SYST 162
[2019-08-06 12:34] VITALS: BP_SYST 150
[2019-08-06] MEDS ORDERED: LISINOPRIL 20 MG TABLET PO ONE (14:00)
[2019-08-06] MEDS ORDERED: cefTRIAXone 1 GM in D5W 50 ML IV SCH (14:15)
[2019-08-06 16:00] VITALS: BP_SYST 133
[2019-08-06] MEDS: INSULIN REGULAR, HUMAN 100 UNITS/ML, 10 ML VIAL (humuLIN R) SUBCUT PRN ×2 (17:14→20:11)
[2019-08-06 20:00] VITALS: BP_SYST 151
[2019-08-06] MEDS ORDERED: D5NS 1,000 ML IV SCH (23:00)
[2019-08-06] MEDS ORDERED: ONDANSETRON HCL 4 MG/2 ML VIAL IVP PRN (23:15)
[2019-08-07] MEDS: 0.45% NACL 1,000 ML IV SCH ×2 (00:10→11:55)
[2019-08-07] MEDS: LEVOTHYROXINE SODIUM 0.025 MG TABLET PO SCH (06:21)
[2019-08-07] MEDS: INSULIN REGULAR, HUMAN 100 UNITS/ML, 10 ML VIAL (humuLIN R) SUBCUT PRN ×4 (06:26→21:54)
[2019-08-07] MEDS ORDERED: LEVOTHYROXINE SODIUM 0.025 MG TABLET PO SCH (07:00)
[2019-08-07 07:38] LABS: ANION GAP 6 (5-15); CALCIUM 8.7 mg/dL (8.4-11.0); CHLORIDE 104 mmol/L (98-107); CREATININE 0.98 mg/dL (0.55-1.30); GLUCOSE 183 mg/dL (70-99); POTASSIUM 4.4 mmol/L (3.5-5.1); SODIUM SERUM 137 mmol/L (136-145); UREA NITROGEN, BLOOD 17 mg/dL (8-21)
[2019-08-07 07:55] LABS: BASOPHILS % (AUTO) 0.4 % (0.0-2.0); EOSINOPHILS # (AUTO) 1.2 K/uL (0.0-0.4); EOSINOPHILS % (AUTO) 13.3 % (0.0-4.0); HEMATOCRIT 40.6 % (36-48); HEMOGLOBIN 14.1 g/dL (12.0-16.0); LYMPHOCYTES # (AUTO) 2.4 K/uL (1.0-5.5); LYMPHOCYTES % (AUTO) 26.4 % (20.5-51.5); MEAN CORPUSCULAR HEMOGLOBIN 33 pg (27-31); MEAN CORPUSCULAR HGB CONC 35 % (32-36); MEAN CORPUSCULAR VOLUME 96 fL (79.0-98.0); MONOCYTES # (AUTO) 0.9 K/uL (0.0-1.0); NEUTROPHILS # (AUTO) 4.6 K/uL (1.8-7.7); NEUTROPHILS % (AUTO) 49.9 % (40.0-70.0); PLATELET COUNT (AUTO) 134 K/uL (130-430); RED BLOOD CELL COUNT(AUTO) 4.24 MIL/uL (4.2-6.2); RED CELL DISTRIBUTION WIDTH 12.9 % (9.0-15.0); WHITE BLOOD COUNT (AUTO) 9.1 K/uL (4.8-10.8)
[2019-08-07 08:43] VITALS: BP_SYST 131
[2019-08-07] MEDS: LISINOPRIL 20 MG TABLET PO SCH (09:15)
[2019-08-07] MEDS: ATORVASTATIN 20 MG TABLET PO SCH (09:16)
[2019-08-07] MEDS: FLUoxetine HCL 20 MG CAPSULE (PROzac) PO SCH (09:16)
[2019-08-07 12:00] VITALS: BP_SYST 150
[2019-08-07 16:00] VITALS: BP_SYST 150
[2019-08-07] MEDS: ACETAMINOPHEN 325 MG TABLET PO PRN (18:54)
[2019-08-07 20:00] VITALS: BP_SYST 127
[2019-08-07] MEDS: cefTRIAXone 1 GM in D5W 50 ML IV SCH (21:52)
[2019-08-08] VITALS: BP_SYST 119
[2019-08-08] MEDS: 0.45% NACL 1,000 ML IV SCH ×2 (02:24→15:57)
[2019-08-08] MEDS: LEVOTHYROXINE SODIUM 0.025 MG TABLET PO SCH (06:21)
[2019-08-08] MEDS: INSULIN REGULAR, HUMAN 100 UNITS/ML, 10 ML VIAL (humuLIN R) SUBCUT PRN ×4 (06:23→21:04)
[2019-08-08 07:23] LABS: BASOPHILS % (AUTO) 0.6 % (0.0-2.0); EOSINOPHILS % (AUTO) 12.4 % (0.0-4.0); HEMATOCRIT 41.1 % (36-48); HEMOGLOBIN 14.1 g/dL (12.0-16.0); LYMPHOCYTES # (AUTO) 2.2 K/uL (1.0-5.5); LYMPHOCYTES % (AUTO) 27.7 % (20.5-51.5); MEAN CORPUSCULAR HEMOGLOBIN 33 pg (27-31); MEAN CORPUSCULAR HGB CONC 34 % (32-36); MEAN CORPUSCULAR VOLUME 96 fL (79.0-98.0); MONOCYTES # (AUTO) 0.8 K/uL (0.0-1.0); NEUTROPHILS # (AUTO) 3.9 K/uL (1.8-7.7); NEUTROPHILS % (AUTO) 49.3 % (40.0-70.0); PLATELET COUNT (AUTO) 132 K/uL (130-430); RED BLOOD CELL COUNT(AUTO) 4.29 MIL/uL (4.2-6.2); RED CELL DISTRIBUTION WIDTH 12.9 % (9.0-15.0); WHITE BLOOD COUNT (AUTO) 7.9 K/uL (4.8-10.8)
[2019-08-08 07:34] LABS: ANION GAP 6 (5-15); CALCIUM 8.7 mg/dL (8.4-11.0); CHLORIDE 104 mmol/L (98-107); GLUCOSE 186 mg/dL (70-99); POTASSIUM 4.2 mmol/L (3.5-5.1); SODIUM SERUM 137 mmol/L (136-145); UREA NITROGEN, BLOOD 18 mg/dL (8-21)
[2019-08-08 08:07] VITALS: BP_SYST 131
[2019-08-08] MEDS: LISINOPRIL 20 MG TABLET PO SCH (08:18)
[2019-08-08] MEDS: FLUoxetine HCL 20 MG CAPSULE (PROzac) PO SCH (08:18)
[2019-08-08] MEDS: ACETAMINOPHEN 325 MG TABLET PO PRN ×2 (08:19→21:07)
[2019-08-08] MEDS: ATORVASTATIN 20 MG TABLET PO SCH (08:19)
[2019-08-08 12:38] VITALS: BP_SYST 134
[2019-08-08 16:00] VITALS: BP_SYST 130
[2019-08-08 20:00] VITALS: BP_SYST 129
[2019-08-08] MEDS: cefTRIAXone 1 GM in D5W 50 ML IV SCH (21:06)
[2019-08-08] MEDS ORDERED: MEROPENEM 1 GM IVPB PREMIX 50 ML IV SCH (23:00)
[2019-08-09 01:06] VITALS: BP_SYST 126
[2019-08-09] MEDS: LEVOTHYROXINE SODIUM 0.025 MG TABLET PO SCH (06:25)
[2019-08-09] MEDS: 0.45% NACL 1,000 ML IV SCH ×2 (06:26→19:50)
[2019-08-09] MEDS: INSULIN REGULAR, HUMAN 100 UNITS/ML, 10 ML VIAL (humuLIN R) SUBCUT PRN ×3 (06:27→17:04)
[2019-08-09 08:00] VITALS: BP_SYST 148
[2019-08-09] MEDS: FLUoxetine HCL 20 MG CAPSULE (PROzac) PO SCH (08:35)
[2019-08-09] MEDS: MEROPENEM 1 GM IVPB PREMIX 50 ML IV SCH ×2 (08:35→21:00)
[2019-08-09] MEDS: LISINOPRIL 20 MG TABLET PO SCH (08:35)
[2019-08-09] MEDS: ATORVASTATIN 20 MG TABLET PO SCH (08:35)
[2019-08-09 13:18] VITALS: BP_SYST 165
[2019-08-09 17:11] VITALS: BP_SYST 140
[2019-08-09] MEDS: ACETAMINOPHEN 325 MG TABLET PO PRN (19:50)
[2019-08-09] MEDS ORDERED: cefTRIAXone 1 GM VIAL ONE (22:37)
[2019-08-10] MEDS: ACETAMINOPHEN 325 MG TABLET PO PRN (04:13)
[2019-08-10] MEDS: LEVOTHYROXINE SODIUM 0.025 MG TABLET PO SCH (06:14)
[2019-08-10] MEDS: INSULIN REGULAR, HUMAN 100 UNITS/ML, 10 ML VIAL (humuLIN R) SUBCUT PRN ×3 (06:18→16:54)
[2019-08-10 08:00] VITALS: BP_SYST 127
[2019-08-10] MEDS: ATORVASTATIN 20 MG TABLET PO SCH (08:54)
[2019-08-10] MEDS: LISINOPRIL 20 MG TABLET PO SCH (08:55)
[2019-08-10] MEDS: FLUoxetine HCL 20 MG CAPSULE (PROzac) PO SCH (08:55)
[2019-08-10] MEDS: MEROPENEM 1 GM IVPB PREMIX 50 ML IV SCH ×2 (08:55→17:33)
[2019-08-10] MEDS: 0.45% NACL 1,000 ML IV SCH (08:56)
[2019-08-10 12:00] VITALS: BP_SYST 136
[2019-08-10 16:00] VITALS: BP_SYST 157
[2019-08-10 18:48] VITALS: BP_SYST 157
[2019-08-10] MEDS ORDERED: CIPR-211 PO (18:53)
== END 2019-08-10 19:20 | disposition home or self-care (01) | DRG 682 ==
LOC: SED 18:26 → SMU 21:40
PROVIDERS: ADMIT Family Medicine; ATTEND Family Medicine
DX: N17.0 Acute kidney failure with tubular necrosis (principal); E43 Unspecified severe protein-calorie malnutrition; N39.0 Urinary tract infection, site not specified; E86.0 Dehydration; E11.9 Type 2 diabetes mellitus without complications; E78.5 Hyperlipidemia, unspecified; I10 Essential (primary) hypertension; E03.9 Hypothyroidism, unspecified; Z79.899 Other long term (current) drug therapy; Z88.5 Allergy status to narcotic agent; Z88.0 Allergy status to penicillin
CPT/HCPCS: 36415; 80048; 80053; 81000-TC; 82962; 83605; 83735-TC; 85025; 87040-TC; 87086; 87186-TC; 96361; 96365; 96375; 99285; J0696; J1815; J2185; J2405; J7030; J7060

== ENCOUNTER 2019-08-14 16:48 | Emergency (ER) | payer OTHER, MEDICARE ==
[~2019-08-14] VITALS: Ht 152.4 cm; Wt 79.8 kg
[~2019-08-14 16:48] MED LIST changes: +CIPR-211 PO; +metformin PO
[2019-08-14 17:00] VITALS: BP_SYST 139
--- NOTE | 2019-08-14 17:10 | NUR ---
Patient to ER bed 02 to gown for evaluation. Side rails up. Report given to BETTY Aldana
--- NOTE | 2019-08-14 17:11 | NUR ---
VENKAT Paz at bedside examining patient.
--- NOTE | 2019-08-14 17:30 | NUR ---
Patient presented to ER C/O blood in stool. Patient A&Ox4, afebrile, skin pink and warm, cap refil <3, ambulatory to ER, denies pain, denies N/V/D. Patient states she has bright red stool since Tuesday. Patient states recent hospitalization, patient also states she discontinued PO medicaton causing bleeding.
[2019-08-14 18:16] LABS: BASOPHILS % (AUTO) 0.4 % (0.0-2.0); EOSINOPHILS # (AUTO) 1.3 K/uL (0.0-0.4); EOSINOPHILS % (AUTO) 12.8 % (0.0-4.0); HEMATOCRIT 40.4 % (36-48); HEMOGLOBIN 13.9 g/dL (12.0-16.0); LYMPHOCYTES # (AUTO) 1.9 K/uL (1.0-5.5); LYMPHOCYTES % (AUTO) 18.8 % (20.5-51.5); MEAN CORPUSCULAR HEMOGLOBIN 33 pg (27-31); MEAN CORPUSCULAR HGB CONC 34 % (32-36); MEAN CORPUSCULAR VOLUME 96 fL (79.0-98.0); MONOCYTES # (AUTO) 0.8 K/uL (0.0-1.0); MONOCYTES % (AUTO) 7.7 % (1.7-9.3); NEUTROPHILS # (AUTO) 6.1 K/uL (1.8-7.7); NEUTROPHILS % (AUTO) 60.3 % (40.0-70.0); PLATELET COUNT (AUTO) 169 K/uL (130-430); RED BLOOD CELL COUNT(AUTO) 4.21 MIL/uL (4.2-6.2)
--- NOTE | 2019-08-14 18:35 | NUR ---
Patient ambulatory with assistance to bathroom, urine specimen obtained, sent to lab.
[2019-08-14 18:47] LABS: ANION GAP 7 (5-15); CALCIUM 8.8 mg/dL (8.4-11.0); CHLORIDE 102 mmol/L (98-107); GLUCOSE 356 mg/dL (70-99); SODIUM SERUM 137 mmol/L (136-145); UREA NITROGEN, BLOOD 15 mg/dL (8-21)
[2019-08-14 18:53] LABS: ALANINE AMINOTRANSFERASE 67 U/L (12-78); ALBUMIN 3.2 g/dL (3.4-4.8); ASPARTATE AMINOTRANSFERASE 24 U/L (10-37); TOTAL BILIRUBIN 0.3 mg/dL (0.0-1.0)
[2019-08-14 19:09] LABS: PROTHROMBIN TIME 10.4 SECS (9.5-12.5)
--- NOTE | 2019-08-14 19:09 | NUR ---
Report to Pepe HERNÁNDEZ
[2019-08-14 19:11] LABS: BILIRUBIN,URINE NEGATIVE (NEGATIVE); BLOOD, URINE NEGATIVE (NEGATIVE); CLARITY/URINE SL CLOUDY (CLEAR); COLOR,URINE YELLOW (YELLOW); GLUCOSE,URINE 2+ (NEGATIVE); KETONES,URINE NEGATIVE (NEGATIVE); LEUKOCYTE ESTERASE ,URINE 1+ (NEGATIVE); NITRITE, URINE NEGATIVE (NEGATIVE); PH,URINE 6.5 (5.0-8.0); PROTEIN URINE NEGATIVE (NEGATIVE); UROBILINOGEN,URINE 0.2 (0.2-1.0)
[2019-08-14] MEDS ORDERED: INSULIN REGULAR, HUMAN 10 UNITS/0.1 ML INJ SUBCUT ONE (19:30)
[2019-08-14 19:38] LABS: BACTERIA,URINE FEW /HPF (None Seen); RBC,URINE 0-3 /HPF (0-3)
[2019-08-14 19:39] LABS: MUCUS,URINE None Seen /LPF (None Seen); URINE AMORPHOUS URATE 3+ /HPF (None Seen)
[2019-08-14 20:00] VITALS: BP_SYST 139
--- NOTE | 2019-08-14 20:00 | NUR ---
Patient given written and verbal discharge instructions and verbalizes understanding. ER MD discussed with patient the results and treatment provided. Patient in stable condition. ID arm band removed. IV catheter removed intact and dressing applied, no active bleeding. Patient educated on pain management and to follow up with PMD. Pain Scale 0/10 Opportunity for questions provided and answered.
== END 2019-08-14 20:00 | disposition home or self-care (01) ==
LOC: SED 16:48
DX: E11.65 Type 2 diabetes mellitus with hyperglycemia (principal); K62.5 Hemorrhage of anus and rectum; E78.5 Hyperlipidemia, unspecified; J45.909 Unspecified asthma, uncomplicated; I10 Essential (primary) hypertension; E07.9 Disorder of thyroid, unspecified; M19.90 Unspecified osteoarthritis, unspecified site; Z88.5 Allergy status to narcotic agent; Z88.0 Allergy status to penicillin; Z79.899 Other long term (current) drug therapy
CPT/HCPCS: 36415; 80053; 81000; 85025; 85610; 85730; 86886; 86900; 86901; 87086; 96372; 99283; J1815

== ENCOUNTER 2020-06-17 12:32 | Inpatient (IN) | payer OTHER, MEDICARE, SELFPAY ==
[~2020-06-17] VITALS: Ht 152.4 cm; Wt 97.5 kg
--- NOTE | 2020-06-17 12:39 | NUR ---
Patient to ER bed 04 to gown for evaluation. Side rails up.
--- NOTE | 2020-06-17 12:45 | NUR ---
BIB SON FROM HOME FOR SOB. RECENT VISITS TO PMD WITH NO IMPROVEMENT. SHE REPORTS HAVING DYSPNEA WITH WHEEZING FOR 1 WEEK. ALERT, CALM, RESP UNLABORED, SKIN WARM AND DRY. EKG COMPLETED, PLACED ON MONITOR
[2020-06-17 12:46] VITALS: BP_SYST 195
--- NOTE | 2020-06-17 12:55 | NUR ---
DR DYSON IN TO ASSESS
[2020-06-17] MEDS ORDERED: predniSONE 20 MG TABLET PO ONE (13:00)
[2020-06-17] MEDS ORDERED: cloNIDine HCL 0.1 MG TABLET PO ONE (13:00)
[2020-06-17] MEDS ORDERED: IPRATROPIUM/ALBUTEROL SULFATE 3 ML AMPUL.NEB (DUONEB) INH ONE (13:00)
--- NOTE | 2020-06-17 13:07 | NUR ---
RT AT BEDSIDE FOR ASSESSMENT/MEDICATION ADMIN
--- NOTE | 2020-06-17 13:30 | NUR ---
S/P HHN,STATED SOME IMPROVEMENT, SHE IS CALM, ALERT, RESP UNLABORED, SKIN WARM AND DRY. COMMUNICATES CLEARLY IN FULL COMPLETE SENTENCES
[2020-06-17 13:40] LABS: BASOPHILS % (AUTO) 0.6 % (0.0-2.0); EOSINOPHILS # (AUTO) 0.6 K/uL (0.0-0.4); EOSINOPHILS % (AUTO) 7.1 % (0.0-4.0); HEMATOCRIT 43.1 % (36-48); HEMOGLOBIN 14.5 g/dL (12.0-16.0); LYMPHOCYTES # (AUTO) 2.3 K/uL (1.0-5.5); LYMPHOCYTES % (AUTO) 28.5 % (20.5-51.5); MEAN CORPUSCULAR HEMOGLOBIN 34 pg (27-31); MEAN CORPUSCULAR HGB CONC 34 % (32-36); MEAN CORPUSCULAR VOLUME 100 fL (79.0-98.0); MONOCYTES # (AUTO) 0.7 K/uL (0.0-1.0); MONOCYTES % (AUTO) 9.1 % (1.7-9.3); NEUTROPHILS # (AUTO) 4.4 K/uL (1.8-7.7); NEUTROPHILS % (AUTO) 54.7 % (40.0-70.0); PLATELET COUNT (AUTO) 147 K/uL (130-430)
[2020-06-17 13:50] LABS: ANION GAP 6 (5-15); CALCIUM 8.9 mg/dL (8.4-11.0); CHLORIDE 103 mmol/L (98-107); CREATININE 0.97 mg/dL (0.55-1.30); GLUCOSE 184 mg/dL (70-99); POTASSIUM 4.2 mmol/L (3.5-5.1); SODIUM SERUM 139 mmol/L (136-145); UREA NITROGEN, BLOOD 17 mg/dL (8-21)
[2020-06-17] MEDS ORDERED: hydrALAZINE HCL 20 MG/ML VIAL IVP ONE (14:00)
[2020-06-17 14:01] LABS: ALANINE AMINOTRANSFERASE 30 U/L (12-78); ALBUMIN 3.4 g/dL (3.4-4.8); ASPARTATE AMINOTRANSFERASE 21 U/L (10-37); TOTAL BILIRUBIN 0.7 mg/dL (0.0-1.0)
[2020-06-17] MEDS: ENALAPRILAT DIHYDRATE 1.25 MG/ML VIAL IVP ONE ×2 (14:26→15:27)
[2020-06-17] MEDS ORDERED: MAGNESIUM SULFATE 50 ML IV ONE (14:30)
[2020-06-17] MEDS ORDERED: methylPREDNISolone SOD SUCC/PF 62.5 MG/ML VIAL IVP ONE (14:30)
[2020-06-17] MEDS ORDERED: MAGNESIUM SULFATE 1 GM/2 ML VIAL IVP ONE (14:30)
--- NOTE | 2020-06-17 15:00 | NUR ---
SPOKE WITH SON UPDATE GIVEN /AWARE OF ADMISSION.
--- NOTE | 2020-06-17 15:15 | NUR ---
ADMIT ORDERS RECEIVED FOR ADMIT TO TELE UNDER MARIE
--- NOTE | 2020-06-17 15:32 | NUR ---
Patient will be admitted to care of [facility]. Admitted to TELE unit. Will go to room 100B. Belongings list completed. Complete and up to date summary report printed. SBAR report to be given at bedside with opportunity for questions.
--- NOTE | 2020-06-17 15:46 | NUR ---
Admission patient brought to room 100B via gurney by CRUSHED STONE GRADER on registered nurse cardiac telemetry, received bedside SBAR report from CRUSHED STONE GRADER, patient ambulated to bathroom, voided x1, patient ambulated to bed, steady gait noted, respirations even and unlabored on room air, no acute distress noted, patient denies any pain, educated patient on use of call light and asked to call for assistance, patient verbalized understanding, call light in reach, educated patient on use of bed alarm for patient safety, patient refusing bed alarm, bed in low and locked position.
[2020-06-17 15:50] VITALS: BP_SYST 201
[2020-06-17] MEDS ORDERED: cloNIDine HCL 0.1 MG TABLET PO PRN (16:00)
--- NOTE | 2020-06-17 16:01 | NUR ---
Spoke with Physician/Closing Note spoke with Dr. Shen, informed him of current BP 201/121, informed him of medications that were administered in ER, new medication orders received, verified with read back.
--- NOTE | 2020-06-17 16:04 | NUR ---
Closing Note SBAR report given to receiving RN, patient resting in bed, respirations even and unlabored on room air, no acute distress noted, call light in reach, bed in low and locked position, care endorsed to Alyx RN.
[2020-06-17] MEDS ORDERED: lisinopriL 20 MG TABLET PO ONE (16:15)
[2020-06-17] MEDS ORDERED: amLODIPine BESYLATE 10 MG TABLET PO ONE (16:15)
--- NOTE | 2020-06-17 16:15 | NUR ---
INITIAL NOTES: RECEIVED REPORT FROM RESOURCE NURSE YULIYA.PATIENT IN THE BED.AWAKE ,ALERT AND ORIENTED X4. IV AT LEFT HAND INTACT. RE CHECK HQ=540/78. DUE PO MEDS GIVEN ORDERED.
[2020-06-17 16:24] VITALS: BP_SYST 148
--- NOTE | 2020-06-17 17:57 | NUR ---
DINNER: PATIENT HAVING DINNER. NO PROBLEM.
--- NOTE | 2020-06-17 18:37 | NUR ---
MD ROUNDS: DR NAQVI IN PATIENT'S ROOM. ORDERS TO FOLLOW.
[2020-06-17] MEDS ORDERED: LevALBUTEROL HCL 1.25 MG/0.5 ML *CONC.* VIAL.NEB (XOPENEX CONC.) INH PRN (19:00)
[2020-06-17 19:07] VITALS: BP_SYST 148
--- NOTE | 2020-06-17 19:21 | NUR ---
CLOSING NOTES: ENDORSED TO NIGHT NURSE NICHELLE ,PATIENT IN STABLE CONDITION.
--- NOTE | 2020-06-17 19:30 | NUR ---
OPENING NOTE RECEIVED PATIENT FROM [facility]. PATIENT AOX4. RESPIRATIONS EVEN AND UNLABORED ON ROOM AIR. OXYGEN SATURATION 93%, NO COMPLAINTS OF SOB AT THIS TIME. BOX BLANK MACHINE FEEDER IN PLACE. IV SITE TO LEFT HAND PATENT AND INTACT, FLUSHING WELL WITH NO SIGNS OF INFILTRATION NOTED. PATIENT AMBULATED STEADILY TO RESTROOM. SAFETY PRECAUTIONS IN PLACE, BED LOCKED IN LOW POSITION WITH CALL LIGHT IN REACH. WILL CONTINUE TO MONITOR.
[2020-06-17 20:00] VITALS: BP_SYST 136
[2020-06-17] MEDS ORDERED: METFORMIN PO SCH (21:00)
[2020-06-17] MEDS: CIPROFLOXACIN HCL 500 MG TABLET PO SCH (21:29)
[2020-06-17] MEDS: lisinopriL 20 MG TABLET PO SCH (21:30)
[2020-06-17] MEDS: methylPREDNISolone SOD SUCC/PF 62.5 MG/ML VIAL IVP SCH (21:31)
[2020-06-17] MEDS: ENOXAPARIN SODIUM 40 MG/0.4 ML SYRINGE SUBCUT SCH (21:34)
--- NOTE | 2020-06-17 21:45 | NUR ---
BLOOD SUGAR ACCUCHECK SHOWED BLOOD SUGAR 406. PROTOCOL INITIATED. INSULIN GIVEN AND MD CALLED. WILL CONTINUE TO MONITOR.
[2020-06-17] MEDS: INSULIN REGULAR, HUMAN 100 UNITS/ML, 10 ML VIAL (humuLIN R) SUBCUT PRN (22:05)
[2020-06-17] MEDS: ACETAMINOPHEN 325 MG TABLET PO PRN (22:10)
[2020-06-17] MEDS: LevALBUTEROL HCL 1.25 MG/0.5 ML *CONC.* VIAL.NEB (XOPENEX CONC.) INH SCH (22:24)
--- NOTE | 2020-06-17 22:45 | NUR ---
PAGED DR NAQVI REGARDING BLOOD SUGAR
--- NOTE | 2020-06-17 23:00 | NUR ---
SPOKE WITH DR NAQVI REPORTED BLOOD SUGAR 406, ORDERS RECEIVED AND CARRIED OUT.
[2020-06-17] MEDS ORDERED: INSULIN REGULAR, HUMAN 100 UNITS/ML, 10 ML VIAL SUBCUT ONE (23:15)
--- NOTE | 2020-06-18 01:19 | NUR ---
RN ROUNDS RESTING IN BED WITH EYES CLOSED NO SIGNS OF DISTRESS NOTED. WILL CONTINUE TO MONITOR.
[2020-06-18 04:00] VITALS: BP_SYST 138
--- NOTE | 2020-06-18 04:00 | NUR ---
RN ROUNDS PATIENT SLEEPING IN BED WITH NO SIGNS OF DISTRESS NOTED, VITAL SIGNS STABLE AT THIS TIME. WILL CONTINUE TO MONITOR.
[2020-06-18] MEDS: LEVOTHYROXINE SODIUM 0.025 MG TABLET PO SCH (06:13)
[2020-06-18] MEDS: methylPREDNISolone SOD SUCC/PF 62.5 MG/ML VIAL IVP SCH ×2 (06:13→13:06)
--- NOTE | 2020-06-18 06:15 | NUR ---
CLOSING NOTE ACCUCHECK 259 INSULIN COVERAGE GIVEN. PATIENT TOLERATED ALL OTHER SCHEDULED MEDICATIONS. PARASITOLOGIST REMAINS IN PLACE. RESPIRATIONS EVEN AND UNLABORED ON ROOM AIR. WITH NO SIGNS OF SOB NOTED. IV PATENT AND INTACT, FLUSHING WELL WITH NO SIGNS OF INFILTRATION NOTED. SAFETY PRECAUTIONS REMAIN IN PLACE. BED LOCKED IN LOW POSITION WITH CALL LIGHT IN REACH.
[2020-06-18] MEDS: INSULIN REGULAR, HUMAN 100 UNITS/ML, 10 ML VIAL (humuLIN R) SUBCUT PRN ×4 (06:26→21:01)
[2020-06-18] MEDS: LevALBUTEROL HCL 1.25 MG/0.5 ML *CONC.* VIAL.NEB (XOPENEX CONC.) INH SCH ×2 (07:05→15:05)
--- NOTE | 2020-06-18 07:25 | NUR ---
OPENING NOTES: RECEIVED PATIENT FROM FINANCIAL ACCOUNTING MANAGER NURSE. PATIENT IS AWAKE AND ALERT x4 SITTING AT THE EDGE OF BED EATING BREAKFAST. PATIENT IS TOLERATING OXYGEN ON ROOM AIR WITH NO SIGNS OF DISTRESS OR SHORTNESS OF BREATH NOTED. IV SITE IS PATENT WITH NO SIGNS OF INFILTRATION NOTED. PATIENT DENIES ANY PAIN AT THE MOMENT. PATIENT IN STABLE CONDITION. SAFETY, FALL, AND ASPIRATION PRECAUTIONS ARE IN PLACE. BED LOCKED IN LOWEST POSITION WITH CALL LIGHT IN REACH. WILL CONTINUE TO MONITOR PATIENT FOR ANY CHANGES.
[2020-06-18] MEDS: FLUoxetine HCL 20 MG CAPSULE (PROzac) PO SCH (08:14)
[2020-06-18] MEDS: ATORVASTATIN 20 MG TABLET PO SCH (08:14)
[2020-06-18] MEDS: CIPROFLOXACIN HCL 500 MG TABLET PO SCH (08:14)
[2020-06-18] MEDS: lisinopriL 20 MG TABLET PO SCH ×2 (08:17→20:34)
[2020-06-18] MEDS: amLODIPine BESYLATE 10 MG TABLET PO SCH (08:17)
[2020-06-18 08:26] VITALS: BP_SYST 145
--- NOTE | 2020-06-18 10:05 | NUR ---
RN ROUNDS: PATIENT IS ASLEEP LAYING DOWN IN BED. PATIENT IS TOLERATING OXYGEN ON ROOM AIR WITH NO SIGNS OF DISTRESS OR SHORTNESS OF BREATH NOTED. IV SITE IS PATENT WITH NO SIGNS OF INFILTRATION NOTED. PATIENT IN STABLE CONDITION. WILL CONTINUE TO MONITOR PATIENT FOR ANY CHANGES.
[2020-06-18] MEDS: ACETAMINOPHEN 325 MG TABLET PO PRN (11:05)
--- NOTE | 2020-06-18 11:05 | NUR ---
PRN MEDS: PATIENT IS COMPLAINING OF SHOULDER PAIN. PRN TYLENOL GIVEN. PATIENT TOLERATED IT WELL. PATIENT HAS AN ELEVATED BLOOD PRESSURE 171/79. PRN CATAPRES GIVEN TO PATIENT. PATIENT TOLERATED IT WELL. PATIENT IN STABLE CONDITION. WILL CONTINUE TO MONITOR PATIENT FOR ANY CHANGES.
[2020-06-18 12:47] VITALS: BP_SYST 171
--- NOTE | 2020-06-18 13:20 | NUR ---
MD ROUNDS: DR. NAQVI MAKING HIS ROUNDS. AWARE OF PATIENT'S CONDITION. NEW ORDERS GIVEN. WILL FOLLOW THROUGH WITH ORDERS.
[2020-06-18] MEDS ORDERED: traMADol HCL HCL 50 MG TABLET (ULTRAM) PO PRN (13:45)
[2020-06-18 16:00] VITALS: BP_SYST 128
--- NOTE | 2020-06-18 16:20 | NUR ---
RN ROUNDS: PATIENT IS AWAKE AND ALERT x4 LAYING DOWN IN BED. PATIENT IS TOLERATING OXYGEN ON ROOM AIR WITH NO SIGNS OF DISTRESS OR SHORTNESS OF BREATH NOTED. IV SITE IS PATENT WITH NO SIGNS OF INFILTRATION NOTED. PATIENT DENIES ANY PAIN AT THE MOMENT. PATIENT IN STABLE CONDITION. WILL CONTINUE TO MONITOR PATIENT FOR ANY CHANGES.
--- NOTE | 2020-06-18 18:42 | NUR ---
CLOSING NOTES: PATIENT IS AWAKE AND ALERT x4 LAYING DOWN IN BED. PATIENT IS TOLERATING OXYGEN ON ROOM AIR WITH NO SIGNS OF DISTRESS OR SHORTNESS OF BREATH NOTED. IV SITE IS PATENT WITH NO SIGNS OF INFILTRATION NOTED. PATIENT DENIES ANY PAIN AT THE MOMENT. PATIENT IN STABLE CONDITION. SAFETY, FALL, AND ASPIRATION PRECAUTIONS REMAINED IN PLACE THROUGHOUT THE SHIFT. BED LOCKED IN LOWEST POSITION WITH CALL LIGHT IN REACH. WILL ENDORSE PATIENT CARE TO ONCOMING PLEATING SUPERVISOR NURSE.
--- NOTE | 2020-06-18 20:15 | NUR ---
Opening notes Pt AAOx4, VSS, afebrile. No s/s sob. Pt c/o arthritic pain, will medicate. IV saline lock L. hand 22G flushes well w/ NS. R. FA skin tear/scab no drainage noted, photo taken. Call light within easy reach. Bed low, locked, siderails upx 2. To monitor.
[2020-06-18 20:30] VITALS: BP_SYST 152
[2020-06-18] MEDS: methylPREDNISolone SOD SUCC 40 MG/ML VIAL IVP SCH (20:34)
--- NOTE | 2020-06-18 20:34 | NUR ---
Med pass/Pain med Pt c/o 02/26 arthritic pain. Pt medicated with Ultram 50mg x1 PO. Meds explained to pt. Pt verbalized understanding. Call light within reach. To monitor.
[2020-06-18] MEDS: ENOXAPARIN SODIUM 40 MG/0.4 ML SYRINGE SUBCUT SCH (20:40)
--- NOTE | 2020-06-18 20:40 | NUR ---
BG NAQVI ON HIS PERSONAL PAGER @ [phone] HIS PAGER IS [phone]
--- NOTE | 2020-06-18 20:50 | NUR ---
BS 454 Neryd Blood sugar checked at 2030= 454. Paged Dr. Shen. Regular insulin 12 units administered per protocol.
--- NOTE | 2020-06-18 21:30 | NUR ---
PAGED DONYA @[phone] ON HIS PERSONAL PAGER [phone]
--- NOTE | 2020-06-18 21:45 | NUR ---
BG NAQVI I SPOKE WITH DELLA
[2020-06-19] MEDS: LevALBUTEROL HCL 1.25 MG/0.5 ML *CONC.* VIAL.NEB (XOPENEX CONC.) INH SCH ×2 (00:02→07:23)
--- NOTE | 2020-06-19 00:15 | NUR ---
Rounds Pt asleep, easily awakens, VSS 93% on room air. No s/s sob or distress noted. Call light within reach. Safety maintained. To monitor.
[2020-06-19 00:20] VITALS: BP_SYST 132
--- NOTE | 2020-06-19 03:10 | NUR ---
Rounds Pt asleep, easily awakens, no s/s distress noted. Call light within reach. To monitor.
[2020-06-19] MEDS: LEVOTHYROXINE SODIUM 0.025 MG TABLET PO SCH (06:34)
[2020-06-19] MEDS: INSULIN REGULAR, HUMAN 100 UNITS/ML, 10 ML VIAL (humuLIN R) SUBCUT PRN ×2 (06:36→12:00)
--- NOTE | 2020-06-19 06:36 | NUR ---
Closing notes Pt AAOx4, no s/s sob. IV saline lock L. hand 22G clear and patent. R. FA skin tear/scab dressing intact. Blood sugar checked 302, 8 units Reg given per protocol. Call light within easy reach. Bed low, locked, siderails upx 2. To endorse to dayshift RN.
[2020-06-19 07:54] VITALS: BP_SYST 179
--- NOTE | 2020-06-19 08:00 | NUR ---
opening note received sbar, patient in bed, respirations even, non labored , bed in low and locked position, call light within reach,
--- NOTE | 2020-06-19 08:10 | NUR ---
IV RE-INSERTION: IV cannula accidentally removed. Restarted on right wrist. Successful after 1 attemp. Will observe for any signs of infiltration.
[2020-06-19] MEDS: amLODIPine BESYLATE 10 MG TABLET PO SCH (08:16)
[2020-06-19] MEDS: FLUoxetine HCL 20 MG CAPSULE (PROzac) PO SCH (08:16)
[2020-06-19] MEDS: lisinopriL 20 MG TABLET PO SCH (08:16)
[2020-06-19] MEDS: ATORVASTATIN 20 MG TABLET PO SCH (08:17)
[2020-06-19] MEDS: methylPREDNISolone SOD SUCC 40 MG/ML VIAL IVP SCH (08:17)
--- NOTE | 2020-06-19 10:00 | NUR ---
nurse note patient in bed, respirations, even non labored, bed in low and locked position, call light within reach
--- NOTE | 2020-06-19 12:00 | NUR ---
nurse note obtained BS, administered insulin per sliding scale, patient alert, oriented, sitting in bed, respirations even non labored, bed in low and locked position, call light within reach, denies any pain or discomfort
[2020-06-19 12:05] VITALS: BP_SYST 149
--- NOTE | 2020-06-19 13:45 | NUR ---
nurse note patient in bed, respirations even, non labored, bed in low and locked position, call light within reach, denies any pain or discomfort
--- NOTE | 2020-06-19 14:45 | NUR ---
rounds Dr. Shen bedside examining patient
--- NOTE | 2020-06-19 14:50 | NUR ---
Nutrition Update Rehan Scale 18 noted. Pt admitted for acute exacerbation COPD. Diet: [facility] BMI: 42 kg/m2 RD to follow per nutrition care standards.
[2020-06-19 15:44] VITALS: BP_SYST 140
--- NOTE | 2020-06-19 16:15 | NUR ---
D/C Patient Patient given medication reconciliation form and D/C instructions. Exit Care provided. Patient verbalized understanding. MD discussed with patient the results and treatment provided. Ambulatory with steady gait for discharge to home. Patient in stable condition, ID band removed. IV catheter removed, intact and dressing applied, no active bleeding. Patient educated on pain management. All belongings sent with patient. patient transported via wheelchair to parking lot where daughter in law was waiting
--- NOTE | 2020-06-26 16:04 | NUR ---
Discharge Follow Up Phone Call Phoned the number listed for patient, , and spoke with patient's son, Queenie. Queenie stated patient was doing okay and back to baseline. She had a follow up appointment with PCP, Dr Shen, 06/25/20. No questions or concerns.
== END 2020-06-19 16:15 | disposition home or self-care (01) | DRG 202 ==
LOC: SED 12:32 → STU 15:15
PROVIDERS: ADMIT Family Medicine; ATTEND Family Medicine
DX: J45.901 Unspecified asthma with (acute) exacerbation (principal); J44.1 Chronic obstructive pulmonary disease with (acute) exacerbation; E44.1 Mild protein-calorie malnutrition; Z68.41 Body mass index [BMI] 40.0-44.9, adult; I10 Essential (primary) hypertension; E78.5 Hyperlipidemia, unspecified; M19.90 Unspecified osteoarthritis, unspecified site; E66.9 Obesity, unspecified; E11.9 Type 2 diabetes mellitus without complications; Z20.828 Contact with and (suspected) exposure to other viral communicable diseases; Z88.0 Allergy status to penicillin; Z88.5 Allergy status to narcotic agent; Z79.84 Long term (current) use of oral hypoglycemic drugs; Z79.899 Other long term (current) drug therapy; Z90.710 Acquired absence of both cervix and uterus
CPT/HCPCS: 36415; 71045; 80053; 82550-TC; 82962; 83880; 84484; 85025; 93005; 94640; 94760; 96365; 96366; 96375; 99291; G0378; J0360; J1030; J1650; J2930; J3475; J7512; J7612

== ENCOUNTER 2021-03-22 23:43 | Emergency (ER) | payer OTHER, MEDICARE ==
[~2021-03-22] VITALS: Ht 152.4 cm; Wt 88.5 kg
[2021-03-22 23:43] VITALS: BP_SYST 153
[~2021-03-22 23:43] MED LIST changes: -CIPR-211 PO; -LISI-600 PO; +LISI20TA30 PO; -metformin PO
--- NOTE | 2021-03-22 23:43 | NUR ---
Liz hayes from home to bed 5 for evaluation
--- NOTE | 2021-03-22 23:44 | NUR ---
Came in ER per gurney brought by [facility] paramedics from from this 75 year old female, AAOX4, breathing spontaneosuly at room air, not in distress noted. with chief complaints of left knee pain, fell on the floor in the rest room 30mins ago, denies LOC and vomiting. History of DM, HTN, HLD, Thyroid problem, Arthritis, Asthma, S/P bilateral knee replacement and previous fall. Allergy to Penicilline and Codeine. Vital signs stable
--- NOTE | 2021-03-22 23:55 | NUR ---
Seen and examined by Dr. Mendoza, ER Attending
[2021-03-23] MEDS ORDERED: MORPHINE 4 MG INJ. 4 MG/ML VIAL IM ONE (01:15)
[2021-03-23] MEDS ORDERED: ONDANSETRON HCL 4 MG/2 ML VIAL IM ONE (01:15)
--- NOTE | 2021-03-23 01:21 | NUR ---
Medications given as ordered, health teaching provided and verbalized understanding
--- NOTE | 2021-03-23 01:45 | NUR ---
Ice pack applied at left knee
--- NOTE | 2021-03-23 02:25 | NUR ---
Re-assesed by Dr. Mendoza, ordered for Anitha wrap at left knee
[2021-03-23 02:48] VITALS: BP_SYST 132
--- NOTE | 2021-03-23 02:48 | NUR ---
Patient given written and verbal discharge instructions and verbalizes understanding. ER MD discussed with patient the results and treatment provided. Patient in stable condition. ID arm band removed. NO Rx of given. Patient educated on pain management and to follow up with PMD. Pain Scale 2/10. Opportunity for questions provided and answered. Medication side effect fact sheet provided.
== END 2021-03-23 02:48 | disposition home or self-care (01) ==
LOC: SED 23:43
DX: S80.02XA Contusion of left knee, initial encounter (principal); J44.9 Chronic obstructive pulmonary disease, unspecified; I10 Essential (primary) hypertension; E11.9 Type 2 diabetes mellitus without complications; Z88.0 Allergy status to penicillin; Z88.5 Allergy status to narcotic agent; Z79.899 Other long term (current) drug therapy; W18.39XA Other fall on same level, initial encounter; Y93.89 Activity, other specified; Y92.89 Other specified places as the place of occurrence of the external cause; Y99.8 Other external cause status
CPT/HCPCS: 73560; 96372; 99284; J2270; J2405

== ENCOUNTER 2021-10-29 13:57 | Inpatient (IN) | payer OTHER, MEDICARE, SELFPAY ==
[~2021-10-29] VITALS: Ht 152.4 cm; Wt 81.6 kg
--- NOTE | 2021-10-29 14:20 | NUR ---
Triaged and placed in room 8.
--- NOTE | 2021-10-29 14:21 | NUR ---
Patient awake, alert and oriented x 3. Reporting rectal pain and bleeding with BM x 2 months. Intermittent constipation and lower abdominal pain also reported. Currently stating pain is 06/28. Awaiting MD pradhan. Addendum: 10/29/21 at 1433 by [email or web address] *pending colonoscopy 11/10 per patient
[2021-10-29 14:33] VITALS: BP_SYST 11; BP_SYST 113
--- NOTE | 2021-10-29 14:34 | NUR ---
Dr Miranda placed orders for patient
--- NOTE | 2021-10-29 14:51 | NUR ---
Pt transported to CT scan via wheelchair
--- NOTE | 2021-10-29 15:15 | NUR ---
Dr Miranda to bedside to obtain stool sample for guiac
[2021-10-29 15:44] LABS: BASOPHILS % (AUTO) 0.4 % (0.0-2.0); EOSINOPHILS # (AUTO) 0.2 K/uL (0.0-0.4); EOSINOPHILS % (AUTO) 2.5 % (0.0-4.0); HEMATOCRIT 47.1 % (36-48); HEMOGLOBIN 16.2 g/dL (12.0-16.0); LYMPHOCYTES # (AUTO) 2.1 K/uL (1.0-5.5); LYMPHOCYTES % (AUTO) 25.2 % (20.5-51.5); MEAN CORPUSCULAR HEMOGLOBIN 33 pg (27-31); MEAN CORPUSCULAR HGB CONC 34 % (32-36); MEAN CORPUSCULAR VOLUME 96 fL (79.0-98.0); MONOCYTES # (AUTO) 0.6 K/uL (0.0-1.0); MONOCYTES % (AUTO) 7.9 % (1.7-9.3); NEUTROPHILS # (AUTO) 5.3 K/uL (1.8-7.7); PLATELET COUNT (AUTO) 173 K/uL (130-430); RED BLOOD CELL COUNT(AUTO) 4.93 MIL/uL (4.2-6.2); WHITE BLOOD COUNT (AUTO) 8.2 K/uL (4.8-10.8)
[2021-10-29] MEDS ORDERED: DICY10CA13 PO (16:20)
[2021-10-29 16:33] LABS: ANION GAP 13 (5-15); CALCIUM 9.7 mg/dL (8.4-11.0); CHLORIDE 98 mmol/L (98-107); CREATININE 1.25 mg/dL (0.55-1.30); GLUCOSE 363 mg/dL (70-99); POTASSIUM 4.2 mmol/L (3.5-5.1); SODIUM SERUM 133 mmol/L (136-145); UREA NITROGEN, BLOOD 27 mg/dL (8-21)
[2021-10-29 16:51] LABS: ALBUMIN 3.6 g/dL (3.4-4.8); ASPARTATE AMINOTRANSFERASE 23 U/L (10-37); LIPASE 223 U/L (73-393); TOTAL BILIRUBIN 0.5 mg/dL (0.0-1.0)
[2021-10-29] MEDS ORDERED: NACL 0.9% 1,000 ML IV ONE (17:15)
--- NOTE | 2021-10-29 17:20 | NUR ---
Patient will be admitted to care of Dr Shen. Admitted to med surg unit. Will go to room TBD. Belongings list completed. Complete and up to date summary report printed. SBAR report to be given at bedside with opportunity for questions.
--- NOTE | 2021-10-29 17:30 | NUR ---
COVID swab collected at bedside and sent to lab
--- NOTE | 2021-10-29 17:30 | NUR ---
# 20 gauge angiocath placed to L AC. Use of asceptic technique. Opsite placed over site. Blood return noted. Blood for lab drawn from site. Flushed with 10 cc of normal saline. No evidence of infiltration noted. Patient tolerated well.
[2021-10-29 17:35] LABS: BILIRUBIN,URINE NEGATIVE (NEGATIVE); BLOOD, URINE NEGATIVE (NEGATIVE); COLOR,URINE YELLOW (YELLOW); GLUCOSE,URINE 3+ (NEGATIVE); KETONES,URINE NEGATIVE (NEGATIVE); LEUKOCYTE ESTERASE ,URINE NEGATIVE (NEGATIVE); NITRITE, URINE NEGATIVE (NEGATIVE); PROTEIN URINE NEGATIVE (NEGATIVE); UROBILINOGEN,URINE 0.2 (0.2-1.0)
[2021-10-29 17:36] LABS: ALANINE AMINOTRANSFERASE 43 U/L (12-78)
[2021-10-29] MEDS: 0.45% NACL 1,000 ML IV SCH (17:45)
--- NOTE | 2021-10-29 18:00 | NUR ---
Medication reconciliation completed with information provided by medication bottles in patient's belongings. Any prior medication reconciliation on file was reviewed and corrected.
[2021-10-29] MEDS ORDERED: GLIP10TA21 PO (18:09)
[2021-10-29] MEDS ORDERED: SITA100T11 PO (18:09)
[2021-10-29 18:23] LABS: CLARITY/URINE SLIGHTLY HAZY (CLEAR)
[2021-10-29 18:37] LABS: BACTERIA,URINE FEW /HPF (None Seen); MUCUS,URINE None Seen /LPF (None Seen); RBC,URINE NONE SEEN /HPF (0-3); YEAST,URINE Few /HPF (None Seen)
--- NOTE | 2021-10-29 19:15 | NUR ---
Report given to Clementine HERNÁNDEZ to assume care of patient
[2021-10-29] MEDS: INSULIN REGULAR, HUMAN 100 UNITS/ML, 10 ML VIAL (humuLIN R) SUBCUT PRN (19:52)
--- NOTE | 2021-10-29 20:00 | NUR ---
BLOOD GLUCOSE 265. INSULIN GIVEN PER ORDER. CLEAR LIQUIDS GIVEN FOR DINNER.
--- NOTE | 2021-10-29 21:39 | NUR ---
[facility] Admitted to MS unit. Will go to room 112B. Belongings list completed. Complete and up to date summary report printed. SBAR report to be given at bedside with opportunity for questions. REPORT CALLED TO BETTY CLARK.
[2021-10-29] MEDS ORDERED: metroNIDAZOLE 500 mg/NS 100 ML IV SCH (22:00)
--- NOTE | 2021-10-29 22:00 | NUR ---
Opening notes : Pt came from home having constipation and feel like there is blockage in the rectum. Pt A/Ox4 and she is on Clear liquid diet. will come to check her colon the next day says the patient. VVS, no s/s of respiratory or cardiac distress. IV site clean. no sign of infection. Fall, safety and isolation precautions in place, call light with in reach.
[2021-10-29] MEDS ORDERED: FAMOTIDINE 20 MG TABLET ONE (23:41)
[2021-10-30] VITALS (7 sets, daily range): BP systolic 115–157
--- NOTE | 2021-10-30 | NUR ---
Patient IV site was clogged. The new IV site is on the Right upper arm.
[2021-10-30] MEDS ORDERED: metroNIDAZOLE 500 mg/NS 100 ML IV ONE (00:02)
[2021-10-30] MEDS: glipiZIDE XL 5 MG TAB ( GLUCOTROL XL) PO SCH ×3 (00:17→23:30)
[2021-10-30] MEDS: DICYCLOMINE HCL 10 MG CAPSULE PO SCH ×4 (00:17→23:30)
[2021-10-30] MEDS: FAMOTIDINE 20 MG TABLET PO SCH ×2 (00:18→08:03)
[2021-10-30] MEDS: DOCUSATE SODIUM 250 MG CAPSULE PO SCH ×3 (00:18→23:30)
[2021-10-30] MEDS: metroNIDAZOLE 500 mg/NS 100 ML IV SCH ×4 (00:30→23:21)
[2021-10-30] MEDS: ENOXAPARIN SODIUM 30 MG/0.3 ML SYRINGE SUBCUT SCH ×2 (00:37→23:37)
[2021-10-30] MEDS: SENNOSIDES/DOCUSATE SODIUM 1 TAB TABLET(SENOKOT-S) PO SCH ×2 (00:38→23:30)
[2021-10-30] MEDS: LEVOTHYROXINE SODIUM 0.025 MG TABLET PO SCH (06:55)
[2021-10-30] MEDS: 0.45% NACL 1,000 ML IV SCH ×2 (06:56→20:25)
--- NOTE | 2021-10-30 07:41 | NUR ---
CONSULTATION PAGED REASON FOR CONSULTATION;SEVERE CONATION WAS CONSULT CALED?Y PERSON WHO WAS NOTIFIED:JAMIR CONSULTING PHYSICIAN:FRANCISCA PAEZ (JEREMY SILVA MACHINERY MECHANIC) VAN CDL DRIVER SPECIALTY:GI VAN CDL DRIVER PHONE NUMBER:[phone] REQUESTING PHYSICIAN:CARLEEN TONG
[2021-10-30] MEDS: lisinopriL 20 MG TABLET PO SCH (08:02)
[2021-10-30] MEDS: ATORVASTATIN 20 MG TABLET PO SCH (08:02)
[2021-10-30] MEDS: FLUoxetine HCL 20 MG CAPSULE (PROzac) PO SCH (08:03)
[2021-10-30] MEDS ORDERED: ROSUVASTATIN CALCIUM 5 MG/TAB (CRESTOR) PO SCH (09:00)
--- NOTE | 2021-10-30 10:01 | NUR ---
Nutrition Update Rehan Scale 18 noted. Pt admitted for acute colitis. Diet: clear liquid BMI: 35.2 kg/m2 RD to follow per nutrition care standards.
--- NOTE | 2021-10-30 10:52 | NUR ---
Rec'd pt A+Ox4, laying in bed sleeping at 0700. Pt c/o pain to abd- paged dr. macias for pain meds as pt doesnt have any on eMAR. IV noted to R upper arm infusing IVF. CSMW satisfactory. Pt c/o GUERRERO and dizziness. Pt denies chest pain, N+T or edema. Lungs clear. No SOB/cough. 98% RA. BSx4. LBM b 06/10. Void via urinal. Pt c/o nausea "off and on." VSS. Med accepting. No other voiced concerns. Will continue to monitor.
[2021-10-30] MEDS ORDERED: KETOROLAC TROMETHAMINE 15 MG VIAL IVP PRN (11:15)
[2021-10-30] MEDS: INSULIN REGULAR, HUMAN 100 UNITS/ML, 10 ML VIAL (humuLIN R) SUBCUT PRN ×2 (11:33→23:36)
[2021-10-30] MEDS ORDERED: BISACODYL 10 MG/SUPPOSITORY RC PRN (17:00)
[2021-10-30] MEDS ORDERED: BISACODYL 10 MG/SUPPOSITORY RC ONE (17:00)
--- NOTE | 2021-10-30 17:40 | NUR ---
IV infiltrated. IV attempted to be restarted- unsuccessful. order for midline placed.
--- NOTE | 2021-10-30 18:10 | NUR ---
Pt resting in bed. No voiced concerns. Call hall in reach. bed in lowest position. Pt awaiting midline. Will continue to monitor.
[2021-10-31 00:26] VITALS: BP_SYST 119
[2021-10-31] MEDS ORDERED: ACETAMINOPHEN 325 MG TABLET ONE ×2 (01:49→21:23)
[2021-10-31] MEDS: ACETAMINOPHEN 325 MG TABLET PO PRN ×2 (01:55→21:24)
[2021-10-31] MEDS: LEVOTHYROXINE SODIUM 0.025 MG TABLET PO SCH (05:59)
--- NOTE | 2021-10-31 07:58 | NUR ---
Received patient in bed resting comfortably, AAOX4, able to express needs, presents calm and cooperative. No c/o pain or discomfort. Respirations are non-labored. Skin is clean, warm and dry to touch. no IV access, waiting for midline insertion, consent in chart. supervisor felling bucking notified to call Picc-Line nurse for follow up status. Bed is locked in lowest position, call light in reach. Nurse will continue care to monitor for changes in status.
[2021-10-31] MEDS: metroNIDAZOLE 500 mg/NS 100 ML IV SCH ×3 (08:00→23:25)
[2021-10-31] MEDS: ATORVASTATIN 20 MG TABLET PO SCH (09:30)
[2021-10-31] MEDS: glipiZIDE XL 5 MG TAB ( GLUCOTROL XL) PO SCH ×2 (09:30→21:11)
[2021-10-31] MEDS: FLUoxetine HCL 20 MG CAPSULE (PROzac) PO SCH (09:32)
[2021-10-31] MEDS: FAMOTIDINE 20 MG TABLET PO SCH (09:32)
[2021-10-31] MEDS: DICYCLOMINE HCL 10 MG CAPSULE PO SCH ×3 (09:32→21:13)
[2021-10-31] MEDS: DOCUSATE SODIUM 250 MG CAPSULE PO SCH ×2 (09:32→21:13)
[2021-10-31] MEDS: lisinopriL 20 MG TABLET PO SCH (09:33)
[2021-10-31] MEDS: 0.45% NACL 1,000 ML IV SCH ×2 (09:45→23:20)
[2021-10-31] MEDS: INSULIN REGULAR, HUMAN 100 UNITS/ML, 10 ML VIAL (humuLIN R) SUBCUT PRN ×2 (11:31→17:33)
--- NOTE | 2021-10-31 11:38 | NUR ---
Nurse educated patient the importance of call light for assistance to prevent falls. Call light in reach, bed is locked in lowest position for safety. Patient verbalizes understanding.
--- NOTE | 2021-10-31 11:40 | NUR ---
Patient in bed resting comfortably. No c/o pain or discomfort. Respirations are non-labored. Skin is clean, warm and dry to touch. Patient is medication compliant, no advrse affects observed. Bed is locked in lowest position, call light in reach. Nurse will continue care to monitor for changes in status.
--- NOTE | 2021-10-31 11:41 | NUR ---
Patient in bed resting comfortably. No c/o pain or discomfort. Respirations are non-labored. Skin is clean, warm and dry to touch. Patient is medication compliant, no adverse affects observed. Bed is locked in lowest position, call light in reach. Nurse will continue care to monitor for changes in status.
[2021-10-31 17:58] VITALS: BP_SYST 122
--- NOTE | 2021-10-31 18:23 | NUR ---
Patient in bed resting comfortably. No c/o pain or discomfort. Respirations are non-labored. Skin is clean, warm and dry to touch. Patient is medication compliant, no adverse affects observed. Bed is locked in lowest position, call light in reach. Nurse will endorse patient to maintenance mechanic 2nd shift nurse for continue care.
[2021-10-31 20:00] VITALS: BP_SYST 127
--- NOTE | 2021-10-31 20:05 | NUR ---
Opening notes Pt AAOx4, VSS, afebrile, no c/o pain. Pt on full liquid diet. INDIA PICC line double lumen dressing C/D/I. Encouraged pt to use call light for assistance to commode, pt verb understanding. Call light within reach. Bed low, locked, siderails up x2. To monitor.
[2021-10-31] MEDS: SENNOSIDES/DOCUSATE SODIUM 1 TAB TABLET(SENOKOT-S) PO SCH (21:00)
[2021-10-31] MEDS: ENOXAPARIN SODIUM 30 MG/0.3 ML SYRINGE SUBCUT SCH (21:19)
[2021-11-01] VITALS: BP_SYST 127
--- NOTE | 2021-11-01 04:02 | NUR ---
Rounds/commode Pt used the commode. Pt had voided and soft brown BM. To monitor.
[2021-11-01] MEDS: LEVOTHYROXINE SODIUM 0.025 MG TABLET PO SCH (06:03)
[2021-11-01] MEDS: INSULIN REGULAR, HUMAN 100 UNITS/ML, 10 ML VIAL (humuLIN R) SUBCUT PRN ×3 (06:17→21:51)
--- NOTE | 2021-11-01 07:51 | NUR ---
Received patient in bed resting comfortably, AAOX4, able to express needs, presents calm and cooperative. No c/o pain or discomfort. Respirations are non-labored. Skin is clean, warm and dry to touch. IV access is patent, dry and intact, no s/sx of redness nor swelling observed. Bed is locked in lowest position, call light in reach. Nurse will continue care to monitor for changes in status.
[2021-11-01 08:30] LABS: BASOPHILS % (AUTO) 0.2 % (0.0-2.0); EOSINOPHILS # (AUTO) 0.2 K/uL (0.0-0.4); EOSINOPHILS % (AUTO) 2.9 % (0.0-4.0); HEMATOCRIT 41.4 % (36-48); HEMOGLOBIN 13.9 g/dL (12.0-16.0); LYMPHOCYTES # (AUTO) 2.4 K/uL (1.0-5.5); LYMPHOCYTES % (AUTO) 34.8 % (20.5-51.5); MEAN CORPUSCULAR HEMOGLOBIN 32 pg (27-31); MEAN CORPUSCULAR HGB CONC 34 % (32-36); MEAN CORPUSCULAR VOLUME 96 fL (79.0-98.0); MONOCYTES # (AUTO) 0.6 K/uL (0.0-1.0); MONOCYTES % (AUTO) 8.5 % (1.7-9.3); NEUTROPHILS # (AUTO) 3.6 K/uL (1.8-7.7); NEUTROPHILS % (AUTO) 53.6 % (40.0-70.0); PLATELET COUNT (AUTO) 139 K/uL (130-430); RED CELL DISTRIBUTION WIDTH 13.5 % (9.0-15.0); WHITE BLOOD COUNT (AUTO) 6.8 K/uL (4.8-10.8)
[2021-11-01 08:50] LABS: ALANINE AMINOTRANSFERASE 28 U/L (12-78); ALBUMIN 2.8 g/dL (3.4-4.8); ANION GAP 11 (5-15); ASPARTATE AMINOTRANSFERASE 22 U/L (10-37); CALCIUM 8.6 mg/dL (8.4-11.0); CHLORIDE 104 mmol/L (98-107); CREATININE 0.81 mg/dL (0.55-1.30); GLUCOSE 239 mg/dL (70-99); POTASSIUM 3.8 mmol/L (3.5-5.1); SODIUM SERUM 139 mmol/L (136-145); TOTAL BILIRUBIN 0.2 mg/dL (0.0-1.0); UREA NITROGEN, BLOOD 11 mg/dL (8-21)
[2021-11-01] MEDS: metroNIDAZOLE 500 mg/NS 100 ML IV SCH ×2 (10:02→16:40)
[2021-11-01] MEDS: FLUoxetine HCL 20 MG CAPSULE (PROzac) PO SCH (10:02)
[2021-11-01] MEDS: DICYCLOMINE HCL 10 MG CAPSULE PO SCH ×3 (10:02→21:36)
[2021-11-01] MEDS: FAMOTIDINE 20 MG TABLET PO SCH (10:03)
[2021-11-01] MEDS: glipiZIDE XL 5 MG TAB ( GLUCOTROL XL) PO SCH ×2 (10:03→21:29)
[2021-11-01] MEDS: ATORVASTATIN 20 MG TABLET PO SCH (10:03)
[2021-11-01] MEDS: lisinopriL 20 MG TABLET PO SCH (10:07)
[2021-11-01] MEDS: DOCUSATE SODIUM 250 MG CAPSULE PO SCH ×3 (10:07→21:30)
[2021-11-01 11:23] VITALS: BP_SYST 139
[2021-11-01] MEDS: 0.45% NACL 1,000 ML IV SCH (12:25)
--- NOTE | 2021-11-01 18:51 | NUR ---
Patient in bed resting comfortably. No c/o pain or discomfort. Respirations are non-labored. Skin is clean, warm and dry to touch. Patient is medication compliant, no adverse affects observed. Bed is locked in lowest position, call light in reach. Nurse will endorse patient to overnight caregiver nurse for continue care.
--- NOTE | 2021-11-01 20:05 | NUR ---
NOTES; report given by nurse Tai. no distress. call light within reach.
[2021-11-01 21:00] VITALS: BP_SYST 165
[2021-11-01] MEDS: SENNOSIDES/DOCUSATE SODIUM 1 TAB TABLET(SENOKOT-S) PO SCH (21:30)
--- NOTE | 2021-11-01 21:45 | NUR ---
NOTES: pt. pretty upset since she never got a dinner tray. VS checked. offered jello and broth, pt. on full liquid. IVF infusing viaa PICC lineon her rt. upper arm. on room air. uses BSC>
[2021-11-01] MEDS: ENOXAPARIN SODIUM 30 MG/0.3 ML SYRINGE SUBCUT SCH (21:48)
--- NOTE | 2021-11-02 00:15 | NUR ---
NOTES: medicated with Tylenol po for c/o headache.
[2021-11-02] MEDS: metroNIDAZOLE 500 mg/NS 100 ML IV SCH ×3 (00:19→15:47)
[2021-11-02] MEDS ORDERED: ACETAMINOPHEN 325 MG TABLET ONE (00:27)
[2021-11-02] MEDS: ACETAMINOPHEN 325 MG TABLET PO PRN (00:29)
--- NOTE | 2021-11-02 04:00 | NUR ---
NOTES: condition observed. continue to monitor.
--- NOTE | 2021-11-02 06:30 | NUR ---
CLOSING NOTES; PT. REMAIN SLEEPING. NO DISTRESS. IVF PATENT. BEEN USING BSC .. FOR FURTHER CARE AND ASSISTANCE. CALL LIGHT WITHIN REACH. WILL ENDORSE TO INCOMING SHIFT.
[2021-11-02] MEDS: LEVOTHYROXINE SODIUM 0.025 MG TABLET PO SCH (07:09)
--- NOTE | 2021-11-02 07:30 | NUR ---
Initial Note Patient awake, alert, and oriented x 4. No pain, no distress. Patient states she wants to go home. Dr. Turk at bedside, states okay to discharge and follow up for outpatient colonoscopy. Will notify Dr. Shen. Call light in reach and bed in lowest position. Encouraged to call.
[2021-11-02] MEDS: 0.45% NACL 1,000 ML IV SCH ×2 (07:41→14:12)
[2021-11-02 08:52] VITALS: BP_SYST 136
[2021-11-02] MEDS: DICYCLOMINE HCL 10 MG CAPSULE PO SCH ×2 (09:26→14:11)
[2021-11-02] MEDS: glipiZIDE XL 5 MG TAB ( GLUCOTROL XL) PO SCH (09:27)
[2021-11-02] MEDS: lisinopriL 20 MG TABLET PO SCH (09:27)
[2021-11-02] MEDS: DOCUSATE SODIUM 250 MG CAPSULE PO SCH (09:28)
[2021-11-02] MEDS: ATORVASTATIN 20 MG TABLET PO SCH (09:28)
[2021-11-02] MEDS: FLUoxetine HCL 20 MG CAPSULE (PROzac) PO SCH (09:28)
[2021-11-02] MEDS: FAMOTIDINE 20 MG TABLET PO SCH (09:29)
[2021-11-02] MEDS: INSULIN REGULAR, HUMAN 100 UNITS/ML, 10 ML VIAL (humuLIN R) SUBCUT PRN ×2 (11:25→17:40)
--- NOTE | 2021-11-02 12:00 | NUR ---
Notes Patient states feeling better after regular diet ordered. No pain or distress observed or reported. Call light in reach and bed locked in lowest position. Encouraged patient to call as needed.
[2021-11-02 12:24] VITALS: BP_SYST 157
--- NOTE | 2021-11-02 16:30 | NUR ---
Notes Patient resting in bed, denies pain. No distress. IVF running per MD order. Patient will be discharged today. Will continue to monitor and encouraged to call.
[2021-11-02 16:49] VITALS: BP_SYST 154
[2021-11-02 17:48] VITALS: BP_SYST 142
--- NOTE | 2021-11-02 18:45 | NUR ---
D/C Patient Patient given medication reconciliation form and D/C instructions. Exit Care provided. Patient verbalized understanding. MD discussed with patient the results and treatment provided. Ambulatory with steady gait for discharge to home. Patient in stable condition, ID band removed. IV catheter removed, intact and dressing applied, no active bleeding. Rx of Flagyl and Senokot given. Patient educated on pain management. All belongings sent with patient.
== END 2021-11-02 18:45 | disposition home or self-care (01) | DRG 392 ==
LOC: SED 13:57 → SMU 17:41
PROVIDERS: ADMIT Family Medicine; ATTEND Family Medicine
PROC: 02HV33Z Insertion of Infusion Device into Superior Vena Cava, Percutaneous Approach (ICD-10-PCS; principal; 2021-10-30)
PROC: B548ZZA Ultrasonography of Superior Vena Cava, Guidance (ICD-10-PCS; 2021-10-30)
DX: K57.32 Diverticulitis of large intestine without perforation or abscess without bleeding (principal); E11.9 Type 2 diabetes mellitus without complications; E03.9 Hypothyroidism, unspecified; I10 Essential (primary) hypertension; J44.9 Chronic obstructive pulmonary disease, unspecified; E78.5 Hyperlipidemia, unspecified; Z20.822 Contact with and (suspected) exposure to COVID-19; M19.90 Unspecified osteoarthritis, unspecified site; K52.9 Noninfective gastroenteritis and colitis, unspecified; Z90.710 Acquired absence of both cervix and uterus; Z88.6 Allergy status to analgesic agent; Z88.0 Allergy status to penicillin; Z79.899 Other long term (current) drug therapy
CPT/HCPCS: 36415; 71045; 76376; 80053; 81000; 82272; 82962; 83605; 83690; 85025; 86886; 86900; 86901; 96360; 99285; J1650; J1815; J1885; J3490

== ENCOUNTER 2022-09-03 00:43 | Inpatient (IN) | payer OTHER, MEDICARE ==
[~2022-09-03] VITALS: Ht 152.4 cm; Wt 79.6 kg
[~2022-09-03 00:43] MED LIST changes: +GLIP10TA21 PO; +INSU200I4 SQ; +SITA100T11 PO; +VITD400 PO
[2022-09-03 01:03] VITALS: BP_SYST 139
--- NOTE | 2022-09-03 01:17 | NUR ---
PT BIBA FROM HOME WITH C/O OF MECHANICAL SLIP AND FALL IN KITCHEN. PT DENIES HEAD TRUAMA, LOC, AND KO. PT REPORTING 10/10 LEFT KNEE AND HIP PAIN. PT WITH HISTORY OF LEFT KNEE AND HIP SURGERY. VSS. REQUESTED FOR MSE.
--- NOTE | 2022-09-03 02:35 | NUR ---
Patient to ER bed 03 to gown for evaluation. Side rails up. Report given to DONALD HERNÁNDEZ.
[2022-09-03] MEDS ORDERED: DULA1.5P SQ (02:37)
[2022-09-03] MEDS ORDERED: CARV12.548 PO (02:39)
--- NOTE | 2022-09-03 04:00 | NUR ---
Medication reconciliation completed with information provided by family. Any prior medication reconciliation on file was reviewed and corrected.
[2022-09-03] MEDS ORDERED: PROPOFOL 200MG/ 20ML VIAL (DIPRIVAN) IV ONE (04:15)
[2022-09-03] MEDS ORDERED: fentaNYL CITRATE/PF 100 MCG/2 ML AMP IVP ONE (04:15)
[2022-09-03] MEDS ORDERED: INSU300I3 SQ (04:29)
--- NOTE | 2022-09-03 04:45 | NUR ---
# 16 FR Myers catheter with use of sterile technique. Immediate return of 100 cc yellow urine noted. Bedside drainage bag placed below level of bladder. Urine sample collected and sent to lab. Pt tolerated procedure well. Patient unable to toilet self.
--- NOTE | 2022-09-03 04:50 | NUR ---
# 22 gauge angiocath placed to INDIA. Use of asceptic technique. Opsite placed over site. Blood return noted. Blood for lab drawn from site. Flushed with 10 cc of normal saline. No evidence of infiltration noted. Patient tolerated well.
--- NOTE | 2022-09-03 05:00 | NUR ---
dr. Mendoza at bedside for MSE and informed consent for moderate sedation
--- NOTE | 2022-09-03 05:20 | NUR ---
MD at bedside for moderate sedation
[2022-09-03 06:28] LABS: BASOPHILS % (AUTO) 0.3 % (0.0-2.0); EOSINOPHILS # (AUTO) 0.2 K/uL (0.0-0.4); EOSINOPHILS % (AUTO) 1.7 % (0.0-4.0); HEMATOCRIT 43.1 % (36-48); HEMOGLOBIN 14.7 g/dL (12.0-16.0); LYMPHOCYTES # (AUTO) 2.2 K/uL (1.0-5.5); LYMPHOCYTES % (AUTO) 15.1 % (20.5-51.5); MEAN CORPUSCULAR HEMOGLOBIN 33 pg (27-31); MEAN CORPUSCULAR HGB CONC 34 % (32-36); MEAN CORPUSCULAR VOLUME 96 fL (79.0-98.0); MONOCYTES # (AUTO) 1.1 K/uL (0.0-1.0); MONOCYTES % (AUTO) 7.4 % (1.7-9.3); NEUTROPHILS # (AUTO) 10.8 K/uL (1.8-7.7); NEUTROPHILS % (AUTO) 75.5 % (40.0-70.0); PLATELET COUNT (AUTO) 140 K/uL (130-430); RED BLOOD CELL COUNT(AUTO) 4.49 MIL/uL (4.2-6.2); RED CELL DISTRIBUTION WIDTH 13.7 % (9.0-15.0); WHITE BLOOD COUNT (AUTO) 14.3 K/uL (4.8-10.8)
[2022-09-03 06:32] LABS: ANION GAP 13 (5-15); CALCIUM 9.3 mg/dL (8.4-11.0); CHLORIDE 102 mmol/L (98-107); GLUCOSE 353 mg/dL (70-99); UREA NITROGEN, BLOOD 22 mg/dL (8-21)
[2022-09-03 06:43] LABS: ALANINE AMINOTRANSFERASE 59 U/L (12-78); ALBUMIN 3.3 g/dL (3.4-4.8); ASPARTATE AMINOTRANSFERASE 54 U/L (10-37); TOTAL BILIRUBIN 0.8 mg/dL (0.0-1.0)
--- NOTE | 2022-09-03 06:49 | NUR ---
COVID SWAB COLLECTED AND SENT TO LAB.
--- NOTE | 2022-09-03 07:21 | NUR ---
Admit bed requested Patient will be admitted to care of Dr. NAQVI. Admitted to MS unit. Diagnosis LEFT FEMUR FRACTURE Inpatient (Yes or No) YES Observation (Yes or No) NO Orientation concerns or request close to nursing station (Yes or No) NO Covid Status PENDING On vent or bipap NO Isolation requirements NO Needs a sitter NO From Home (Yes or if No enter name of facility) YES Requires Dialysis (Yes or No) NO Med Rec Completed (Yes of No) YES
--- NOTE | 2022-09-03 07:24 | NUR ---
Medication reconciliation completed with information provided by PT LIST. Any prior medication reconciliation on file was reviewed and corrected.
--- NOTE | 2022-09-03 07:40 | NUR ---
ASSUMED PATIENT CARE EYE CLOSE EASILY AWAKEN, ON BELT LOOP MACHINE OPERATOR, AWAITING FOR BED ASSIGNMENT, WILL CONTINUE TO MONITOR.
--- NOTE | 2022-09-03 08:58 | NUR ---
PATIENT REPOSITIONNED IN BED, BREAK FAST GIVEN.
--- NOTE | 2022-09-03 09:05 | NUR ---
SON AT BEDSIDE.
--- NOTE | 2022-09-03 09:25 | NUR ---
X-RAY IN PROGRESS.
[2022-09-03] MEDS: traMADol HCL HCL 50 MG TABLET (ULTRAM) PO PRN ×2 (09:31→16:44)
--- NOTE | 2022-09-03 10:38 | NUR ---
Admit bed requested Patient will be admitted to care of . Admitted to M/S unit. Diagnosis LEFT FEMUR FX Inpatient (Yes or No) Y Observation (Yes or No) Orientation concerns or request close to nursing station (Yes or No) Covid StatusNEGATIVE On vent or bipapNO Isolation requirements NO Needs a sitter NO From Home (Yes or if No enter name of facility) YES Requires Dialysis (Yes or No) NO Med Rec Completed (Yes of No)Y
--- NOTE | 2022-09-03 13:53 | NUR ---
GERARDO BARROS ([facility]) [phone]
--- NOTE | 2022-09-03 14:20 | NUR ---
CALL PLACED TO ADMITTING PHYSICIAN.
--- NOTE | 2022-09-03 14:22 | NUR ---
DR KEATON DURANT CALLED BACK WITH ORDER.
[2022-09-03] MEDS ORDERED: GLUCOSE (DEXTROSE) ORAL GEL -Adults PO PRN (14:30)
[2022-09-03] MEDS ORDERED: DEXTROSE 50% JECT 50 ML DISP.SYRIN IVP PRN (14:30)
[2022-09-03] MEDS ORDERED: D5W 1,000 ML IV PRN (14:30)
--- NOTE | 2022-09-03 15:43 | NUR ---
REPORT GIVEN TO JR HERNÁNDEZ
--- NOTE | 2022-09-03 15:45 | NUR ---
Report received from Syed HERNÁNDEZ from ER. Room is ready. Awaiting for patient.
--- NOTE | 2022-09-03 15:51 | NUR ---
Patient will be admitted to care of DR PUGH. Admitted to M/S unit. Will go to room 109 A. Belongings list completed. Complete and up to date summary report printed. SBAR report to be given at bedside with opportunity for questions.
--- NOTE | 2022-09-03 16:20 | NUR ---
ORTHO CONSULT , DR NIDHI BOSS IS AWARE.
[2022-09-03 16:38] VITALS: BP_SYST 135
[2022-09-03] MEDS ORDERED: MORPHINE 2 MG/ML INJ. SYRINGE IVP PRN (17:15)
[2022-09-03] MEDS ORDERED: NALOXONE HCL 0.4 MG/ML AMP (NARCAN) IVP PRN (17:15)
[2022-09-03 18:21] VITALS: BP_SYST 135
[2022-09-03] MEDS: INSULIN REGULAR, HUMAN 100 UNITS/ML, 3 ML VIAL (humuLIN R) SUBCUT PRN (19:11)
[2022-09-03] MEDS: INSULIN GLARGINE 100 UNITS/ML, 10 ML VIAL SUBCUT SCH (19:13)
[2022-09-03 20:00] VITALS: BP_SYST 151
[2022-09-03] MEDS ORDERED: INSULIN REGULAR, HUMAN 100 UNITS/ML, 3 ML VIAL SUBCUT ONE (20:30)
[2022-09-03] MEDS ORDERED: INSULIN REGULAR, HUMAN 100 UNITS/ML, 3 ML VIAL SUBCUT PRN (20:30)
--- NOTE | 2022-09-03 23:00 | NUR ---
TRANSFER OF CARE REPORT RECEIVED FROM BETTY ACUNA. PATIENT RECEIVED LYING IN BED, RESTING. NO S/S OF ACUTE DISTRESS. STATES THAT SHE FEELS COMFORTABLE. BREATHING EVEN AND UNLABORED. WILL RECHECK SUGAR AT MIDNIGHT. CALL LIGHT WITH PATIENT. BED ALARM ON. LAM ATTACHED, SECURED, AND DRAINING BY GRAVITY. WILL CONTINUE TO MONITOR.
[2022-09-03] MEDS: glipiZIDE XL 5 MG TAB ( GLUCOTROL XL) PO SCH (23:09)
[2022-09-03] MEDS: CARVEDILOL 12.5 MG TABLET (COREG) PO SCH (23:11)
[2022-09-03] MEDS: ENOXAPARIN SODIUM 40 MG/0.4 ML SYRINGE SUBCUT SCH (23:11)
--- NOTE | 2022-09-04 | NUR ---
ACCUCHECK BS AT 180.
[2022-09-04 00:31] VITALS: BP_SYST 126
[2022-09-04] MEDS: LEVOTHYROXINE SODIUM 0.025 MG TABLET PO SCH (06:15)
--- NOTE | 2022-09-04 06:45 | NUR ---
CLOSING NOTE PATIENT IN BED, NO S/S OF ACUTE DISTRESS. BREATHING EVEN AND UNLABORED. IV SITE PATENT. NO SIGNS OF INFILTRATION OR INFECTION NOTED. LAM ATTACHED, SECURED, AND DRAINING BY GRAVITY. ALL NEEDS MET THROUGHOUT SHIFT. FALL, SAFETY PRECAUTIONS MAINTAINED THROUGHOUT SHIFT. WILL CONTINUE TO MONITOR UNTIL PATIENT CARE IS ENDORSED TO ONCOMING DAYSHIFT NURSE.
--- NOTE | 2022-09-04 08:00 | NUR ---
OPENING NOTES: Patient in bed with eyes closed. No s/s of distress. Patient complaining of pain in left hip. Breathing even and unlabored. Myers catheter attached, secured and draining to gravity. Fall safety precautions in place. All needs met, safety checks made and call light within reach.
[2022-09-04 08:15] VITALS: BP_SYST 119
[2022-09-04] MEDS ORDERED: ROSUVASTATIN CALCIUM 5 MG/TAB (CRESTOR) PO SCH (09:00)
[2022-09-04] MEDS: FLUoxetine HCL 20 MG CAPSULE (PROzac) PO SCH (09:41)
[2022-09-04] MEDS: ATORVASTATIN 20 MG TABLET PO SCH (09:42)
[2022-09-04] MEDS: glipiZIDE XL 5 MG TAB ( GLUCOTROL XL) PO SCH ×2 (09:43→20:41)
[2022-09-04] MEDS: lisinopriL 20 MG TABLET PO SCH (09:44)
[2022-09-04] MEDS: CARVEDILOL 12.5 MG TABLET (COREG) PO SCH ×2 (09:44→20:42)
[2022-09-04 09:52] LABS: BASOPHILS % (AUTO) 0.3 % (0.0-2.0); EOSINOPHILS # (AUTO) 0.2 K/uL (0.0-0.4); EOSINOPHILS % (AUTO) 2.1 % (0.0-4.0); HEMATOCRIT 41.3 % (36-48); LYMPHOCYTES # (AUTO) 2.6 K/uL (1.0-5.5); LYMPHOCYTES % (AUTO) 26.2 % (20.5-51.5); MEAN CORPUSCULAR HEMOGLOBIN 33 pg (27-31); MEAN CORPUSCULAR HGB CONC 34 % (32-36); MEAN CORPUSCULAR VOLUME 97 fL (79.0-98.0); MONOCYTES # (AUTO) 1.1 K/uL (0.0-1.0); MONOCYTES % (AUTO) 10.9 % (1.7-9.3); NEUTROPHILS % (AUTO) 60.5 % (40.0-70.0); PLATELET COUNT (AUTO) 126 K/uL (130-430); RED BLOOD CELL COUNT(AUTO) 4.24 MIL/uL (4.2-6.2); RED CELL DISTRIBUTION WIDTH 13.5 % (9.0-15.0); WHITE BLOOD COUNT (AUTO) 9.9 K/uL (4.8-10.8)
[2022-09-04 10:03] LABS: ANION GAP 8 (5-15); CALCIUM 9.4 mg/dL (8.4-11.0); CHLORIDE 102 mmol/L (98-107); GLUCOSE 172 mg/dL (70-99); UREA NITROGEN, BLOOD 18 mg/dL (8-21)
[2022-09-04] MEDS: traMADol HCL HCL 50 MG TABLET (ULTRAM) PO PRN ×3 (10:12→22:50)
[2022-09-04] MEDS: INSULIN GLARGINE 100 UNITS/ML, 10 ML VIAL SUBCUT SCH (10:15)
[2022-09-04] MEDS ORDERED: ACETAMINOPHEN 325 MG TABLET PO PRN (10:30)
[2022-09-04] MEDS ORDERED: MILK OF MAGNESIA 30 ML UDC PO PRN (10:45)
[2022-09-04 11:30] VITALS: BP_SYST 111
[2022-09-04] MEDS: INSULIN REGULAR, HUMAN 100 UNITS/ML, 3 ML VIAL (humuLIN R) SUBCUT PRN ×3 (12:30→20:43)
[2022-09-04 15:30] VITALS: BP_SYST 100
--- NOTE | 2022-09-04 19:06 | NUR ---
CLOSING NOTES: Patient is resting in bed, no s/s of distress. Patient complaining of pain. Breathing even and unlabored. Myers is attached, secure and draining to gravity. All needs met, safety checks made and call light within reach.
--- NOTE | 2022-09-04 19:15 | NUR ---
OPENING NOTE REPORT RECEIVED FROM DAYSHIFT NURSE. PATIENT RECEIVED LYING IN BED, NO S/S OF ACUTE DISTRESS. BREATHING IS EVEN AND UNLABORED. CAST ON LEFT LOWER EXTREMITY ATTACHED, CLEAN AND DRY. IV SITE PATENT, NO SIGNS OF INFILTRATION OR INFECTION NOTED. LAM ATTACHED, SECURED, AND DRAINING BY GRAVITY. CALL LIGHT WITH PATIENT. BED ALARM ON. BED IS LOCKED AND AT LOWEST POSITION. WILL CONTINUE TO MONITOR.
[2022-09-04 20:00] VITALS: BP_SYST 101
[2022-09-04] MEDS: DOCUSATE SODIUM 100 MG CAPSULE PO SCH (20:41)
[2022-09-04] MEDS: ENOXAPARIN SODIUM 40 MG/0.4 ML SYRINGE SUBCUT SCH (20:43)
--- NOTE | 2022-09-04 22:50 | NUR ---
PAIN PRN MEDICATION ADMINISTERED. WILL MONITOR AND REASSESS.
[2022-09-05] VITALS: BP_SYST 100
[2022-09-05] MEDS: traMADol HCL HCL 50 MG TABLET (ULTRAM) PO PRN ×2 (04:49→11:53)
[2022-09-05] MEDS: LEVOTHYROXINE SODIUM 0.025 MG TABLET PO SCH (06:08)
--- NOTE | 2022-09-05 06:41 | NUR ---
CLOSING NOTE PATIENT IN BED, RESTING AT THIS TIME. NO S/S OF ACUTE DISTRESS. BREATHING EVEN AND UNLABORED. LAM ATTACHED, SECURED, AND DRAINING BY GRAVITY. ALL NEEDS MET THROUGHOUT SHIFT. WILL MONITOR UNTIL PATIENT CARE IS ENDORSED TO ONCOMING DAYSHIFT NURSE.
[2022-09-05 08:00] VITALS: BP_SYST 105
[2022-09-05] MEDS ORDERED: NALOXONE HCL 0.4 MG/ML AMP (NARCAN) IVP PRN (09:45)
[2022-09-05 10:02] LABS: PROTHROMBIN TIME 10.5 SECS (9.5-12.5)
[2022-09-05 10:06] LABS: BASOPHILS % (AUTO) 0.3 % (0.0-2.0); EOSINOPHILS # (AUTO) 0.4 K/uL (0.0-0.4); EOSINOPHILS % (AUTO) 3.5 % (0.0-4.0); HEMOGLOBIN 13.2 g/dL (12.0-16.0); LYMPHOCYTES # (AUTO) 2.7 K/uL (1.0-5.5); LYMPHOCYTES % (AUTO) 26.5 % (20.5-51.5); MEAN CORPUSCULAR HEMOGLOBIN 33 pg (27-31); MEAN CORPUSCULAR HGB CONC 34 % (32-36); MEAN CORPUSCULAR VOLUME 97 fL (79.0-98.0); MONOCYTES # (AUTO) 1.2 K/uL (0.0-1.0); MONOCYTES % (AUTO) 11.6 % (1.7-9.3); NEUTROPHILS # (AUTO) 5.9 K/uL (1.8-7.7); NEUTROPHILS % (AUTO) 58.1 % (40.0-70.0); PLATELET COUNT (AUTO) 139 K/uL (130-430); RED BLOOD CELL COUNT(AUTO) 4.03 MIL/uL (4.2-6.2); RED CELL DISTRIBUTION WIDTH 13.7 % (9.0-15.0); WHITE BLOOD COUNT (AUTO) 10.1 K/uL (4.8-10.8)
[2022-09-05 10:32] LABS: ANION GAP 9 (5-15); CALCIUM 10.2 mg/dL (8.4-11.0); CHLORIDE 101 mmol/L (98-107); CREATININE 0.94 mg/dL (0.55-1.30); FREE T4 (FREE THYROXINE) 1.1 ng/dl (0.8-1.5); GLUCOSE 125 mg/dL (70-99); UREA NITROGEN, BLOOD 19 mg/dL (8-21)
[2022-09-05] MEDS: CARVEDILOL 12.5 MG TABLET (COREG) PO SCH ×2 (11:38→21:33)
[2022-09-05] MEDS: glipiZIDE XL 5 MG TAB ( GLUCOTROL XL) PO SCH ×2 (11:39→21:33)
[2022-09-05] MEDS: DOCUSATE SODIUM 100 MG CAPSULE PO SCH ×2 (11:39→21:32)
[2022-09-05] MEDS: FLUoxetine HCL 20 MG CAPSULE (PROzac) PO SCH (11:39)
[2022-09-05] MEDS: lisinopriL 20 MG TABLET PO SCH (11:39)
[2022-09-05] MEDS: INSULIN GLARGINE 100 UNITS/ML, 10 ML VIAL SUBCUT SCH (11:48)
[2022-09-05] MEDS: ATORVASTATIN 20 MG TABLET PO SCH (11:59)
[2022-09-05 12:00] VITALS: BP_SYST 110
[2022-09-05] MEDS: MORPHINE 4 MG INJ. 4 MG/ML VIAL IVP PRN (14:45)
[2022-09-05 16:00] VITALS: BP_SYST 107
[2022-09-05 20:00] VITALS: BP_SYST 118
[2022-09-05] MEDS: ENOXAPARIN SODIUM 40 MG/0.4 ML SYRINGE SUBCUT SCH (21:00)
[2022-09-05] MEDS: MORPHINE 2 MG/ML INJ. SYRINGE IVP PRN (21:36)
[2022-09-06] VITALS: BP_SYST 108
[2022-09-06 01:35] LABS: COLOR,URINE YELLOW (YELLOW)
[2022-09-06 01:36] LABS: BILIRUBIN,URINE NEGATIVE (NEGATIVE); BLOOD, URINE 2+ (NEGATIVE); CLARITY/URINE SLIGHTLY CLOUDY (CLEAR); GLUCOSE,URINE NEGATIVE (NEGATIVE); KETONES,URINE TRACE (NEGATIVE); LEUKOCYTE ESTERASE ,URINE 1+ (NEGATIVE); NITRITE, URINE POSITIVE (NEGATIVE); PH,URINE 5.5 (5.0-8.0); PROTEIN URINE TRACE (NEGATIVE); UROBILINOGEN,URINE 0.2 (0.2-1.0)
[2022-09-06 01:44] LABS: BACTERIA,URINE MANY /HPF (None Seen); WBC,URINE >100 /HPF (0-3)
[2022-09-06 04:00] VITALS: BP_SYST 116
--- NOTE | 2022-09-06 06:36 | NUR ---
CHARGE NURSE HUNG 1L D51/2 NS CHARGE MADE AWARE PT DIABETIC PRIOR TO HANGING. AT BEDSIDE PT RECEIVED 1 LITER CHARGE NURSE MADE AWARE PT NPO BLOOD GLUCOSE 295 CARE ENDORSED TO CHARGE NURSE TO FOLLOW UP FOR ORDERS
[2022-09-06] MEDS: LEVOTHYROXINE SODIUM 0.025 MG TABLET PO SCH (06:40)
--- NOTE | 2022-09-06 06:40 | NUR ---
ANKUR NURSE ADVISED TO CALL MD FOR ORDERS
--- NOTE | 2022-09-06 06:57 | NUR ---
SPOKE WITH SURGEON GERA AND MADE AWARE CHARGE NURSE JESSICA GAVE PT D51/2 NS PER MD REY ROSS PT WITH SLIDING SCALCOVERAGE AND NEW ORDERS FOR 2UNITS PRBC TO OR FOR SURGERY
[2022-09-06] MEDS: INSULIN REGULAR, HUMAN 100 UNITS/ML, 3 ML VIAL (humuLIN R) SUBCUT PRN ×3 (06:59→22:32)
--- NOTE | 2022-09-06 07:20 | NUR ---
OPENING NOTE RECEIVED SBAR FROM NIGHT RN. PATIENT IN BED RESPIRATIONS EVEN NON LABORED, BED IN LOW AND LOCKED POSITION CALL LIGHT WITHIN REACH.
[2022-09-06 07:28] LABS: BASOPHILS % (AUTO) 0.2 % (0.0-2.0); EOSINOPHILS # (AUTO) 0.4 K/uL (0.0-0.4); EOSINOPHILS % (AUTO) 3.7 % (0.0-4.0); HEMATOCRIT 32.9 % (36-48); HEMOGLOBIN 11.1 g/dL (12.0-16.0); LYMPHOCYTES # (AUTO) 2.8 K/uL (1.0-5.5); LYMPHOCYTES % (AUTO) 23.2 % (20.5-51.5); MEAN CORPUSCULAR HEMOGLOBIN 33 pg (27-31); MEAN CORPUSCULAR HGB CONC 34 % (32-36); MEAN CORPUSCULAR VOLUME 98 fL (79.0-98.0); MONOCYTES % (AUTO) 16.4 % (1.7-9.3); NEUTROPHILS # (AUTO) 6.8 K/uL (1.8-7.7); NEUTROPHILS % (AUTO) 56.5 % (40.0-70.0); PLATELET COUNT (AUTO) 126 K/uL (130-430); RED BLOOD CELL COUNT(AUTO) 3.34 MIL/uL (4.2-6.2); RED CELL DISTRIBUTION WIDTH 13.7 % (9.0-15.0)
[2022-09-06 07:38] LABS: ANION GAP 6 (5-15); CALCIUM 8.9 mg/dL (8.4-11.0); CHLORIDE 97 mmol/L (98-107); CREATININE 1.31 mg/dL (0.55-1.30); GLUCOSE 300 mg/dL (70-99); UREA NITROGEN, BLOOD 27 mg/dL (8-21)
[2022-09-06 08:00] VITALS: BP_SYST 96
[2022-09-06] MEDS: glipiZIDE XL 5 MG TAB ( GLUCOTROL XL) PO SCH ×2 (09:00→22:24)
[2022-09-06] MEDS: ATORVASTATIN 20 MG TABLET PO SCH (09:00)
[2022-09-06] MEDS: CARVEDILOL 12.5 MG TABLET (COREG) PO SCH ×2 (09:00→22:24)
[2022-09-06] MEDS: DOCUSATE SODIUM 100 MG CAPSULE PO SCH ×2 (09:00→22:23)
[2022-09-06] MEDS: lisinopriL 20 MG TABLET PO SCH (09:00)
[2022-09-06] MEDS: FLUoxetine HCL 20 MG CAPSULE (PROzac) PO SCH (09:00)
[2022-09-06] MEDS: INSULIN GLARGINE 100 UNITS/ML, 10 ML VIAL SUBCUT SCH (09:27)
--- NOTE | 2022-09-06 11:14 | NUR ---
CONSULTATION PAGED REASON FOR CONSULTATION:CARDIAC CLEARANCE FOR SURGERY WAS CONSULT CALLED?Y PERSON WHO WAS NOTIFIED:ERNST CONSULTING PHYSICIAN:FRANCISCO NIETO SEWAGE DISPOSAL WORKER SPECIALTY:CARDIO SEWAGE DISPOSAL WORKER PHONE NUMBER:[phone] REQUESTING PHYSICIAN:CARLEEN TONG
[2022-09-06] MEDS: MORPHINE 4 MG INJ. 4 MG/ML VIAL IVP PRN ×2 (11:18→18:25)
[2022-09-06 11:30] VITALS: BP_SYST 98
--- NOTE | 2022-09-06 12:32 | NUR ---
PAGED DR OSBORNE REGARDING CARDIAC CLEARANCE FOR SURGERY THIS AFTERNOON, LEFT MESSAGE WITH EXCHANGE
--- NOTE | 2022-09-06 12:56 | NUR ---
SAFE RETRIEVED RING FROM THE SAFE AND RETURNED TO PATIENTS SON
--- NOTE | 2022-09-06 12:56 | NUR ---
MD DR OSBORNE BEDSIDE EXAMINING PATIENT
--- NOTE | 2022-09-06 13:01 | NUR ---
CARDIAC CLEARANCE PATIENT CLEARED BY DR OSBORNE FOR SURGERY THIS AFTERNOON, CONSULT NOTES TO FOLLOW
[2022-09-06] MEDS ORDERED: NACL 0.9% 1,000 ML IV SCH (13:15)
--- NOTE | 2022-09-06 14:00 | NUR ---
surgery RS spoke with OR, surgery rescheduled to 09/07/22 at 1600 ok to change diet NPO after midnight
--- NOTE | 2022-09-06 14:17 | NUR ---
NURSE NOTE INFORMED PATIENT THAT SURGERY HAS BEEN RESCHEDULED FOR TOMORROW AT 1600. ANSWERED ALL QUESTIONS, PATIENT VERBALIZED UNDERSTANDING
[2022-09-06 15:37] VITALS: BP_SYST 104
[2022-09-06] MEDS: NACL 0.9% 1,000 ML IV SCH (16:15)
[2022-09-06] MEDS: GENTAMICIN 100 MG/ ISO-OSM 50 ML PREMIX IV SCH (17:12)
--- NOTE | 2022-09-06 19:18 | NUR ---
closing note Provided sbar to night RN. Patient in bed, respirations even, non labored. Bed in low and locked position call light within reach, Bed alarm on. Endorsed to night RN. Addendum: 09/06/22 at 1928 by Zachary Gurera RN gaye draining by gravity. IVF's running as ordered.
[2022-09-06 20:00] VITALS: BP_SYST 132
[2022-09-06] MEDS: traMADol HCL HCL 50 MG TABLET (ULTRAM) PO PRN (22:24)
[2022-09-07] VITALS: BP_SYST 122
[2022-09-07 04:00] VITALS: BP_SYST 129
[2022-09-07] MEDS: NACL 0.9% 1,000 ML IV SCH ×2 (04:08→17:23)
[2022-09-07] MEDS: LEVOTHYROXINE SODIUM 0.025 MG TABLET PO SCH (06:22)
--- NOTE | 2022-09-07 07:18 | NUR ---
ALL NEEDS ANTIPATED AND MET NPO SINCE MIDNIGHT COMPLIANT CALL LIGHT IN [facility] CATH PATENT CARE ENDORSED
[2022-09-07 07:30] LABS: BASOPHILS % (AUTO) 0.3 % (0.0-2.0); EOSINOPHILS # (AUTO) 0.3 K/uL (0.0-0.4); EOSINOPHILS % (AUTO) 3.4 % (0.0-4.0); HEMOGLOBIN 11.9 g/dL (12.0-16.0); LYMPHOCYTES # (AUTO) 1.9 K/uL (1.0-5.5); LYMPHOCYTES % (AUTO) 18.8 % (20.5-51.5); MEAN CORPUSCULAR HEMOGLOBIN 33 pg (27-31); MEAN CORPUSCULAR HGB CONC 34 % (32-36); MEAN CORPUSCULAR VOLUME 96 fL (79.0-98.0); MONOCYTES # (AUTO) 1.5 K/uL (0.0-1.0); MONOCYTES % (AUTO) 15.1 % (1.7-9.3); NEUTROPHILS # (AUTO) 6.2 K/uL (1.8-7.7); NEUTROPHILS % (AUTO) 62.4 % (40.0-70.0); PLATELET COUNT (AUTO) 143 K/uL (130-430); RED BLOOD CELL COUNT(AUTO) 3.64 MIL/uL (4.2-6.2); RED CELL DISTRIBUTION WIDTH 13.5 % (9.0-15.0)
[2022-09-07 07:44] LABS: ANION GAP 10 (5-15); CALCIUM 8.5 mg/dL (8.4-11.0); CHLORIDE 100 mmol/L (98-107); CREATININE 1.07 mg/dL (0.55-1.30); GENTAMICIN,TROUGH 1.5 ug/mL (0.2-2.0); GLUCOSE 185 mg/dL (70-99); UREA NITROGEN, BLOOD 21 mg/dL (8-21)
[2022-09-07] MEDS: FLUoxetine HCL 20 MG CAPSULE (PROzac) PO SCH (08:58)
[2022-09-07] MEDS: ATORVASTATIN 20 MG TABLET PO SCH (08:58)
[2022-09-07] MEDS: CARVEDILOL 12.5 MG TABLET (COREG) PO SCH ×2 (08:59→20:48)
[2022-09-07] MEDS: lisinopriL 20 MG TABLET PO SCH (08:59)
[2022-09-07] MEDS: INSULIN GLARGINE 100 UNITS/ML, 10 ML VIAL SUBCUT SCH (09:00)
[2022-09-07] MEDS: glipiZIDE XL 5 MG TAB ( GLUCOTROL XL) PO SCH ×2 (09:00→20:47)
[2022-09-07] MEDS: DOCUSATE SODIUM 100 MG CAPSULE PO SCH ×2 (09:00→20:48)
[2022-09-07] MEDS: MORPHINE 4 MG INJ. 4 MG/ML VIAL IVP PRN (09:15)
[2022-09-07 10:27] VITALS: BP_SYST 111
[2022-09-07 11:31] VITALS: BP_SYST 91
[2022-09-07] MEDS: INSULIN REGULAR, HUMAN 100 UNITS/ML, 3 ML VIAL (humuLIN R) SUBCUT PRN ×3 (11:33→21:35)
[2022-09-07 15:23] VITALS: BP_SYST 119
[2022-09-07] MEDS: GENTAMICIN 100 MG/ ISO-OSM 50 ML PREMIX IV SCH (17:24)
[2022-09-07 20:00] VITALS: BP_SYST 121
[2022-09-07] MEDS: traMADol HCL HCL 50 MG TABLET (ULTRAM) PO PRN (20:47)
[2022-09-08] VITALS (7 sets, daily range): BP systolic 105–138
[2022-09-08] MEDS: MORPHINE 2 MG/ML INJ. SYRINGE IVP PRN ×2 (00:22→15:31)
[2022-09-08] MEDS: LEVOTHYROXINE SODIUM 0.025 MG TABLET PO SCH (06:36)
--- NOTE | 2022-09-08 06:53 | NUR ---
NPO SINCE MIDNIGHT NO SIGNIFICANT CHANGES ALL NEEDS ANTICIPATED AND MET
[2022-09-08] MEDS ORDERED: APIXABAN 2.5 MG TABLET PO ONE (08:00)
[2022-09-08] MEDS: NACL 0.9% 1,000 ML IV SCH ×2 (08:58→11:15)
[2022-09-08] MEDS: INSULIN GLARGINE 100 UNITS/ML, 10 ML VIAL SUBCUT SCH (09:00)
[2022-09-08] MEDS: lisinopriL 20 MG TABLET PO SCH (09:05)
[2022-09-08] MEDS: glipiZIDE XL 5 MG TAB ( GLUCOTROL XL) PO SCH ×2 (09:05→21:49)
[2022-09-08] MEDS: FLUoxetine HCL 20 MG CAPSULE (PROzac) PO SCH (09:06)
[2022-09-08] MEDS: CARVEDILOL 12.5 MG TABLET (COREG) PO SCH ×2 (09:06→21:00)
[2022-09-08] MEDS: ATORVASTATIN 20 MG TABLET PO SCH (09:07)
[2022-09-08] MEDS: DOCUSATE SODIUM 100 MG CAPSULE PO SCH ×2 (09:08→21:43)
[2022-09-08] MEDS ORDERED: MORPHINE SULFATE 10MG/10ML PF AMP EP ONE (09:47)
[2022-09-08] MEDS ORDERED: DESFLURANE 15 MIN GAS INH ONE (09:47)
[2022-09-08] MEDS ORDERED: CLINDAMYCIN PHOSPHATE 600 mg/50mL D5W IV ONE (09:47)
[2022-09-08] MEDS ORDERED: MIDAZOLAM HCL 5 MG/5 ML VIAL IVP ONE (09:47)
[2022-09-08] MEDS ORDERED: BUPIVACAINE /EPINEPHRINE/PF 0.25% 30 ML VIAL INJ ONE (09:47)
[2022-09-08] MEDS ORDERED: ePHEDrine sulfate 50 MG/ML VIAL IVP ONE (09:47)
[2022-09-08] MEDS ORDERED: ROCURONIUM BROMIDE 10 MG/ML (ZEMURON) IV ONE (09:47)
[2022-09-08] MEDS ORDERED: ONDANSETRON HCL 4 MG/2 ML VIAL IVP ONE (09:47)
[2022-09-08] MEDS ORDERED: WATER FOR IRRIGATION,STERILE 1,000 ML IRRIG.SOLN IR ONE (09:47)
[2022-09-08] MEDS ORDERED: PROPOFOL 200MG/ 20ML VIAL (DIPRIVAN) IV ONE (09:47)
[2022-09-08] MEDS ORDERED: KETOROLAC TROMETHAMINE 30 MG VIAL IVP ONE (09:47)
[2022-09-08] MEDS ORDERED: ALBUMIN HUMAN 5% 12.5 GM/250 ML VIAL IV ONE (09:47)
[2022-09-08] MEDS ORDERED: NS 1000 ML IV.SOLN IV ONE (09:47)
[2022-09-08] MEDS ORDERED: SUGAMMADEX SODIUM 200 MG/2 ML VIAL IV ONE (09:47)
[2022-09-08] MEDS ORDERED: LIDOCAINE 1% 10 MG/ML, 20 ML MDV INJ ONE (09:47)
[2022-09-08] MEDS ORDERED: ACETAMINOPHEN I.V. 1000 MG 100 ML IV ONE (10:36)
[2022-09-08] MEDS ORDERED: MIDAZOLAM HCL 2 MG/2 ML VIAL (VERSED) IVP PRN (11:15)
[2022-09-08] MEDS ORDERED: hydrALAZINE HCL 20 MG/ML VIAL IVP PRN (11:15)
[2022-09-08] MEDS ORDERED: NALOXONE HCL 0.4 MG/ML AMP (NARCAN) IVP PRN (11:15)
[2022-09-08] MEDS ORDERED: MEPERIDINE HCL/PF 25 MG/ML DISP.SYRIN IVP PRN (11:15)
[2022-09-08] MEDS ORDERED: DIPHENHYDRAMINE INJ 50 MG/ML VIAL IVP PRN (11:15)
[2022-09-08] MEDS ORDERED: HYDROmorphone 1 MG/ML INJ. CARTRIDGE IVP PRN ×2 (11:15)
[2022-09-08] MEDS ORDERED: LABETALOL 100 MG/ 20ML VIAL IVP PRN (11:15)
[2022-09-08] MEDS ORDERED: ONDANSETRON HCL 4 MG/2 ML VIAL IVP PRN (11:15)
[2022-09-08] MEDS ORDERED: METOCLOPRAMIDE HCL 10 MG/2 ML VIAL IVP PRN (11:15)
[2022-09-08] MEDS ORDERED: ALBUMIN HUMAN 5% 250 ML IV ONE ×2 (13:15→16:00)
--- NOTE | 2022-09-08 16:00 | NUR ---
1500 PATIENT ACCOMPANIED BACK FROM OR BY OPT[employer]ECTS CAMERA OPERATORBETTY GUO, REPORT RECEIVED. ORIF L DISTAL FEMUR FX COMPLETED, PT HAS BRACE TO L LEG. NWB TO LLE. PATIENT ABLE TO WIGGLE TOES, DENIES NUMBNESS/TINGLING. CAP REFILL <3 SECONDS, PULSE +1. VITAL SIGNS: 133/59, HR 68, RR 16, T 97.8, 02 98% ON 2LNC. AAO x4, C/O PAIN TO LLE. IVF INFUSING TO INDIA PER ORDER. MEDICATED WITH PRN PAIN MEDICATION. SAFETY MEASURES IN PLACE, CALL LIGHT IN EASY REACH. ALL NEEDS MET.
[2022-09-08] MEDS: GENTAMICIN 100 MG/ ISO-OSM 50 ML PREMIX IV SCH (16:10)
[2022-09-08] MEDS ORDERED: ENOXAPARIN SODIUM 40 MG/0.4 ML SYRINGE SUBCUT ONE (18:00)
[2022-09-08] MEDS: VANCOMYCIN HCL 1 GM/NS PREMIX 250 ML IV SCH (18:19)
[2022-09-08] MEDS: INSULIN REGULAR, HUMAN 100 UNITS/ML, 3 ML VIAL (humuLIN R) SUBCUT PRN ×2 (18:19→21:56)
--- NOTE | 2022-09-08 19:15 | NUR ---
REPORT GIVEN TO PM NURSE FOR CONTINUITY OF CARE.
--- NOTE | 2022-09-08 21:00 | NUR ---
pt alert and oriented x4. She follows commands and answers questions. she is unsteady, just came back from OR. She is resting using nasal canula 2 L. She has huizar
--- NOTE | 2022-09-09 00:30 | NUR ---
pt is awake. no acute distress noted
[2022-09-09 01:20] VITALS: BP_SYST 131
--- NOTE | 2022-09-09 04:04 | NUR ---
pat is awake and watching tv
[2022-09-09] MEDS: LEVOTHYROXINE SODIUM 0.025 MG TABLET PO SCH (07:02)
[2022-09-09] MEDS: VANCOMYCIN HCL 1 GM/NS PREMIX 250 ML IV SCH ×2 (07:02→17:47)
[2022-09-09] MEDS: INSULIN REGULAR, HUMAN 100 UNITS/ML, 3 ML VIAL (humuLIN R) SUBCUT PRN ×4 (07:10→21:33)
[2022-09-09 08:00] VITALS: BP_SYST 162
[2022-09-09] MEDS: NACL 0.9% 1,000 ML IV SCH ×3 (08:40→16:25)
[2022-09-09] MEDS: glipiZIDE XL 5 MG TAB ( GLUCOTROL XL) PO SCH ×2 (08:41→20:03)
[2022-09-09] MEDS: lisinopriL 20 MG TABLET PO SCH (08:42)
[2022-09-09] MEDS: FLUoxetine HCL 20 MG CAPSULE (PROzac) PO SCH (08:42)
[2022-09-09] MEDS: DOCUSATE SODIUM 100 MG CAPSULE PO SCH ×2 (08:42→20:02)
[2022-09-09] MEDS: ATORVASTATIN 20 MG TABLET PO SCH (08:43)
[2022-09-09] MEDS: CARVEDILOL 12.5 MG TABLET (COREG) PO SCH ×2 (08:44→20:02)
[2022-09-09] MEDS: APIXABAN 2.5 MG TABLET PO SCH ×2 (08:45→20:04)
[2022-09-09] MEDS: INSULIN GLARGINE 100 UNITS/ML, 10 ML VIAL SUBCUT SCH (08:50)
[2022-09-09] MEDS: traMADol HCL HCL 50 MG TABLET (ULTRAM) PO PRN (09:14)
[2022-09-09 11:30] VITALS: BP_SYST 151
--- NOTE | 2022-09-09 12:30 | NUR ---
PATIENT RESTING IN BED, WATCHING TV, RESPIRATIONS EVEN AND UL ON 2LNC. NO C/O PAIN AT THIS TIME. ALL NEEDS MET. SAFETY MEASURES IN PLACE, CALL LIGHT IN REACH.
[2022-09-09 15:30] VITALS: BP_SYST 130
[2022-09-09] MEDS: GENTAMICIN 100 MG/ ISO-OSM 50 ML PREMIX IV SCH (16:21)
--- NOTE | 2022-09-09 18:37 | NUR ---
PATIENT RESTING IN BED, EATING DINNER, RESPIRATIONS EVEN AND UL ON 2LNC. AAO x3. NO C/O PAIN/DISCOMFORT. BRACE TO L LEG IN PLACE. DRESSING TO LLE CDI. CAP REFILL TO L FOOT <3 SECONDS, PULSE +1, WARM TO TOUCH, PATIENT ABLE TO WIGGLE TOES, DENIES NUMBNESS/TINGLING. NS INFUSING TO [place] IV SITE, IV SITE WNL. ALL NEEDS MET. NO SIGNIFICANT CHANGES THROUGHOUT SHIFT. BED IN LOW, SIDE RAILS x2, LOCKED, CALL LIGHT IN EASY REACH. WILL CONT TO MONITOR AND ENDORSE TO PM NURSE FOR CONTINUITY OF CARE.
--- NOTE | 2022-09-09 19:14 | NUR ---
REPORT GIVEN TO PM NURSE JENNIFER FOR CONTINUITY OF CARE. PATIENT REMAINS STABLE.
[2022-09-09 20:00] VITALS: BP_SYST 106
[2022-09-09] MEDS ORDERED: MELATONIN 5 MG TABLET PO SCH (21:00)
[2022-09-10] MEDS: NACL 0.9% 1,000 ML IV SCH ×3 (00:47→13:45)
[2022-09-10] MEDS: MORPHINE 4 MG INJ. 4 MG/ML VIAL IVP PRN (01:10)
[2022-09-10 01:26] VITALS: BP_SYST 119
[2022-09-10] MEDS: LEVOTHYROXINE SODIUM 0.025 MG TABLET PO SCH (04:29)
--- NOTE | 2022-09-10 06:47 | NUR ---
Patient in bed. No acute distress noted. Complaint of pain prn given. Will continue to monitor.
--- NOTE | 2022-09-10 06:48 | NUR ---
Turned repositioned q2.
--- NOTE | 2022-09-10 07:30 | NUR ---
Asleep, arousable to voice. No sign of respiratory distress or pain. IV infusing well. Myers catheter in place, draining yellow urine. Safety checks done. Call light within reach.
[2022-09-10 08:00] VITALS: BP_SYST 110
[2022-09-10 08:18] LABS: EOSINOPHILS # (AUTO) 0.1 K/uL (0.0-0.4); EOSINOPHILS % (AUTO) 0.5 % (0.0-4.0); HEMATOCRIT 27.5 % (36-48); HEMOGLOBIN 9.2 g/dL (12.0-16.0); LYMPHOCYTES # (AUTO) 1.3 K/uL (1.0-5.5); LYMPHOCYTES % (AUTO) 8.6 % (20.5-51.5); MEAN CORPUSCULAR HEMOGLOBIN 32 pg (27-31); MEAN CORPUSCULAR HGB CONC 34 % (32-36); MEAN CORPUSCULAR VOLUME 95 fL (79.0-98.0); MONOCYTES # (AUTO) 1.8 K/uL (0.0-1.0); MONOCYTES % (AUTO) 11.6 % (1.7-9.3); NEUTROPHILS # (AUTO) 12.2 K/uL (1.8-7.7); NEUTROPHILS % (AUTO) 79.3 % (40.0-70.0); PLATELET COUNT (AUTO) 165 K/uL (130-430); RED BLOOD CELL COUNT(AUTO) 2.88 MIL/uL (4.2-6.2); RED CELL DISTRIBUTION WIDTH 13.6 % (9.0-15.0); WHITE BLOOD COUNT (AUTO) 15.4 K/uL (4.8-10.8)
[2022-09-10 08:34] LABS: ANION GAP 10 (5-15); CHLORIDE 104 mmol/L (98-107); CREATININE 1.17 mg/dL (0.55-1.30); GLUCOSE 175 mg/dL (70-99); UREA NITROGEN, BLOOD 14 mg/dL (8-21)
[2022-09-10] MEDS: FLUoxetine HCL 20 MG CAPSULE (PROzac) PO SCH (09:04)
[2022-09-10] MEDS: DOCUSATE SODIUM 100 MG CAPSULE PO SCH (09:04)
[2022-09-10] MEDS: lisinopriL 20 MG TABLET PO SCH (09:05)
[2022-09-10] MEDS: CARVEDILOL 12.5 MG TABLET (COREG) PO SCH (09:06)
[2022-09-10] MEDS: ATORVASTATIN 20 MG TABLET PO SCH (09:06)
[2022-09-10] MEDS: APIXABAN 2.5 MG TABLET PO SCH (09:07)
[2022-09-10] MEDS: glipiZIDE XL 5 MG TAB ( GLUCOTROL XL) PO SCH (09:08)
[2022-09-10] MEDS: INSULIN GLARGINE 100 UNITS/ML, 10 ML VIAL SUBCUT SCH (09:14)
[2022-09-10] MEDS: MORPHINE 2 MG/ML INJ. SYRINGE IVP PRN (11:25)
--- NOTE | 2022-09-10 11:30 | NUR ---
No shortness of breath on room air. Reported 6/10 pain on the leg. Medicated for physical therapy. Blood sugar checked, 191 mg/dl; insulin coverage given per MD order. Safety checks done. Call light within reach.
[2022-09-10 12:10] VITALS: BP_SYST 111
--- NOTE | 2022-09-10 12:15 | NUR ---
Seen by physical therapist. Tolerated procedure/exercise well.
--- NOTE | 2022-09-10 13:33 | NUR ---
Seen by Dr. Jordan. He wants ensure drink for patient instead of juice. Informed airplane designer, Rosalba. Reported to Dr. Jordan that per pharmacist, blood culture only shows E. coli and asked if we can switch to lower spectrum antibiotics. He said he will put in a vanco order and another po antibiotics for patient.
--- NOTE | 2022-09-10 14:07 | NUR ---
CM: faxed referral package bri Lamb at [facility] fax # [phone], tel # [phone] x [phone]. Addendum: 09/10/22 at 1455 by Nicolasa Montes RN Per Zainab, the pt is accepted. Will assigned bed once received repeat Covid test result. --BETTY Antunez made aware. Addendum: 09/10/22 at 1615 by Nicolasa Montes RN Per Zainab, requesting nurse to give report now to room 1107 B, report # [phone] -- BETTY Antunez aware. to activate the ambulance once had Covid test result.
--- NOTE | 2022-09-10 15:04 | NUR ---
Ambulance: booked with [facility] # [phone] on Will Call.-- DC package placed in nursing unit, Terry Antunez made aware.
--- NOTE | 2022-09-10 15:28 | NUR ---
BROUGHT SAMPLE FOR COVID TEST TO LAB
[2022-09-10 16:00] VITALS: BP_SYST 102
--- NOTE | 2022-09-10 17:00 | NUR ---
REPORT GIVEN TO JONI AT [facility]. PATIENT AND HIS SON, GERARDO IS AWARE OF TRANSFER. AMBULANCE TO [facility] PATIENT AT 12MN.
--- NOTE | 2022-09-10 17:16 | NUR ---
ACTIVATE WILL CALL STATUS WITH [facility]. CRIME LAB ANALYST TIME FOING TO DEBBIE LLOYD IS 12MIDNIGHT. SPOKE TO TONJA
[2022-09-10] MEDS: GENTAMICIN 100 MG/ ISO-OSM 50 ML PREMIX IV SCH (17:18)
[2022-09-10] MEDS: INSULIN REGULAR, HUMAN 100 UNITS/ML, 3 ML VIAL (humuLIN R) SUBCUT PRN (17:22)
--- NOTE | 2022-09-10 18:51 | NUR ---
ALL NEEDS MET THROUGHOUT SHIFT. NO PAIN OR SHORTNESS OF BREATH AT THIS TIME. SAFETY CHECKS DONE. CALL LIGHT WITHIN REACH.
[2022-09-10 19:12] VITALS: BP_SYST 102
--- NOTE | 2022-09-10 19:58 | NUR ---
EMT here for transfer. IV and arm band removed. All discharge paperwork given to EMT personnel.
== END 2022-09-10 20:10 | DRG 480 ==
LOC: SED 00:43 → SMU 07:16
PROVIDERS: ADMIT Family Medicine; ATTEND Family Medicine
PROC: 2W3RX1Z Immobilization of Left Lower Leg using Splint (ICD-10-PCS; 2022-09-03)
PROC: 0QSFXZZ Reposition Left Patella, External Approach (ICD-10-PCS; 2022-09-03)
PROC: 0QSC04Z Reposition Left Lower Femur with Internal Fixation Device, Open Approach (ICD-10-PCS; principal; 2022-09-08 09:55)
DX: S72.452A Displaced supracondylar fracture without intracondylar extension of lower end of left femur, initial encounter for closed fracture (principal); N17.0 Acute kidney failure with tubular necrosis; M97.12XA Periprosthetic fracture around internal prosthetic left knee joint, initial encounter; N39.0 Urinary tract infection, site not specified; E03.9 Hypothyroidism, unspecified; M17.0 Bilateral primary osteoarthritis of knee; E78.5 Hyperlipidemia, unspecified; J44.9 Chronic obstructive pulmonary disease, unspecified; I10 Essential (primary) hypertension; E66.9 Obesity, unspecified; E11.9 Type 2 diabetes mellitus without complications; Z20.822 Contact with and (suspected) exposure to COVID-19; Z96.651 Presence of right artificial knee joint; W18.39XA Other fall on same level, initial encounter; Z88.5 Allergy status to narcotic agent; Z88.0 Allergy status to penicillin; Z79.899 Other long term (current) drug therapy; Z68.34 Body mass index [BMI] 34.0-34.9, adult; Z90.710 Acquired absence of both cervix and uterus; Y93.89 Activity, other specified; Y99.8 Other external cause status; Y92.009 Unspecified place in unspecified non-institutional (private) residence as the place of occurrence of the external cause
CPT/HCPCS: 36415; 36600; 71045; 73502; 73552; 73560-TC; 73700-TC; 76001; 76376; 80048; 80053; 80170; 81000; 82803-TC; 82948; 82962; 83036; 83735; 84439; 84443; 85025; 85610-TC; 85730-TC; 86886; 86900; 86901; 86920; 87081; 87086; 93005; 97163-GP; 97530-GP; 99285; A4649; C1713; J0131; J1580; J1650; J1815; J1885; J2001; J2250; J2270; J2274; J2405; J2704; J3010; J3370; J3465; J3490; J7030; L1830; P9041

== ENCOUNTER 2022-11-04 20:21 | Inpatient (IN) | payer OTHER, MEDICARE ==
[~2022-11-04] VITALS: Ht 165.1 cm; Wt 90.7 kg
[~2022-11-04 20:21] MED LIST changes: +CARV12.548 PO; -INSU200I4 SQ; -VITD400 PO
[2022-11-04 20:26] VITALS: BP_SYST 128
--- NOTE | 2022-11-04 20:26 | NUR ---
Patient triaged by primary nurse Neil and placed in wall way w/ amb ems. VSS and patient appears in no acute distress at this time. Accompanied by Ems amb, awaiting available bed, and MD notified of need for MSE.
--- NOTE | 2022-11-04 20:31 | NUR ---
KARELY FROM [facility], HAD A KNIFE THREATEN TO HURT HERSELF, STAFF TOOK KNIFE AWAY. THIS IS HER FIRST TIME.
[2022-11-04 21:56] LABS: BASOPHILS % (AUTO) 0.4 % (0.0-2.0); EOSINOPHILS # (AUTO) 0.4 K/uL (0.0-0.4); EOSINOPHILS % (AUTO) 5.3 % (0.0-4.0); HEMATOCRIT 33.9 % (36-48); HEMOGLOBIN 11.5 g/dL (12.0-16.0); LYMPHOCYTES # (AUTO) 2.9 K/uL (1.0-5.5); LYMPHOCYTES % (AUTO) 37.2 % (20.5-51.5); MEAN CORPUSCULAR HEMOGLOBIN 32 pg (27-31); MEAN CORPUSCULAR HGB CONC 34 % (32-36); MEAN CORPUSCULAR VOLUME 94 fL (79.0-98.0); MONOCYTES # (AUTO) 0.8 K/uL (0.0-1.0); MONOCYTES % (AUTO) 10.5 % (1.7-9.3); NEUTROPHILS # (AUTO) 3.6 K/uL (1.8-7.7); NEUTROPHILS % (AUTO) 46.6 % (40.0-70.0); PLATELET COUNT (AUTO) 168 K/uL (130-430); RED BLOOD CELL COUNT(AUTO) 3.62 MIL/uL (4.2-6.2); WHITE BLOOD COUNT (AUTO) 7.8 K/uL (4.8-10.8)
--- NOTE | 2022-11-04 22:08 | NUR ---
ER examining patient in the er [facility].
[2022-11-04 22:13] LABS: ANION GAP 13 (5-15); CALCIUM 9.2 mg/dL (8.4-11.0); CHLORIDE 105 mmol/L (98-107); CREATININE 0.98 mg/dL (0.55-1.30); GLUCOSE 159 mg/dL (70-99); UREA NITROGEN, BLOOD 32 mg/dL (8-21)
[2022-11-04 22:18] LABS: ALANINE AMINOTRANSFERASE 43 U/L (12-78); ALBUMIN 2.9 g/dL (3.4-4.8); ALCOHOL, BLOOD 123 mg/dL (<10); ASPARTATE AMINOTRANSFERASE 24 U/L (10-37); TOTAL BILIRUBIN 0.3 mg/dL (0.0-1.0)
[2022-11-04 22:19] LABS: ACETAMINOPHEN < 1 ug/mL (1-30)
--- NOTE | 2022-11-05 01:00 | NUR ---
Micheal goode in [facility] - 11/05/22 at 0521 by SDEDPR Pt moved to room 5.
--- NOTE | 2022-11-05 01:00 | NUR ---
Pt moved to room 5 w/ sitter .
--- NOTE | 2022-11-05 03:00 | NUR ---
Security at the bedside to cate norman.
--- NOTE | 2022-11-05 06:04 | NUR ---
PENDING TELE PSHCHE FROM DR ESTRADA
--- NOTE | 2022-11-05 06:57 | NUR ---
Dr Barrera(psych consult ) talking to the pt on the phone at the bedside.
--- NOTE | 2022-11-05 07:41 | NUR ---
Recieved report from BETTY Abraham. Pt is aaox3 without complaints at this time. Pt is calm and resting in bed with cooperation of vital signs. Pt skin intact, denies SOB, SRIKANTH. Responsive in yes or no answers.
[2022-11-05] MEDS ORDERED: PRO10 PO (07:59)
--- NOTE | 2022-11-05 09:00 | NUR ---
MD Barrera spoke with pt via tele psych to determine refferal of 51/50 placement. bilingual secretary contacted MD De La Garza to assess and place hold. MD De La Garza states under suspension and will get clearance to come visit the patient. Pending 51/50 hold at this time. Family son Queenie notified.
[2022-11-05 09:14] LABS: BILIRUBIN,URINE NEGATIVE (NEGATIVE); BLOOD, URINE NEGATIVE (NEGATIVE); COLOR,URINE YELLOW (YELLOW); GLUCOSE,URINE NEGATIVE (NEGATIVE); KETONES,URINE NEGATIVE (NEGATIVE); LEUKOCYTE ESTERASE ,URINE TRACE (NEGATIVE); NITRITE, URINE NEGATIVE (NEGATIVE); PROTEIN URINE NEGATIVE (NEGATIVE); UROBILINOGEN,URINE 0.2 (0.2-1.0)
[2022-11-05 09:19] LABS: CLARITY/URINE HAZY (CLEAR)
--- NOTE | 2022-11-05 09:30 | NUR ---
De Ionizer Operator Puja bedside with pt to process plan of care and acceptance of transfer to Psych facility. Pending hold from [facility].
[2022-11-05 09:35] LABS: BACTERIA,URINE MODERATE /HPF (None Seen); RBC,URINE 0-3 /HPF (0-3)
[2022-11-05 09:40] LABS: BARBITURATE, URINE NEGATIVE (NEG <=200); BENZODIAZEPINE, URINE POSITIVE (NEG <=150); CANNABINOID, URINE NEGATIVE (NEG <=50); COCAINE, URINE NEGATIVE (NEG <=150); METHAMPHETAMINES SCREEN,URINE NEGATIVE (NEG <=500); OPIATE, URINE NEGATIVE (NEG <=100); PHENCYCLIDINE SCREEN,URINE NEGATIVE (NEG <=25); UR TRICYCLIC ANTIDEPRESSANTS NEGATIVE (NEG <=300); URINE AMPHETAMINE NEGATIVE (NEG <=500); URINE METHADONE NEGATIVE (NEG <=200); URINE OXYCODONE SCREEN NEGATIVE (NEG <=100); URINE PROPOXYPHENE SCREEN NEGATIVE (NEG <=300)
--- NOTE | 2022-11-05 09:45 | NUR ---
Plug Assembler re: suicide risk Met with AMA Bowie. We discussed the patient and her current state. The patient was brought in last night and has since calmed down, been compliant, and is being cooperative with people. The patient has completed a telepsyche with the recommendation to proceed with a 5150 hold. Arrangements are being made to get the dr. to come in and complete the hold and get the patient transferred. In to speak with patient at bedside. The patient was trying to rest comfortably, but indicated she was cold. I provided the patient with an additional heated blanket. The patient appeared alert and oriented. She was pleasant and agreed to speak with me. Per patient, she was frustrated yesterday ad got flustered in the moment. she indicates she has a problem with her leg, and requires assistance with being transferred from the wheelchair to the toilet. She states she was using her call light and was getting upset and frustrated when no one was answering her. She states it is an ongoing problem, her son has spoken to administration, and even she has spoken to administration but the problem still exists. i inquired with the patient about her agreement with transferring to a facility that can better address her mental stability and assist with her getting the appropriate interventions, and she state she was in agreement. With permission from the patient, I called and spoke with the son, Queenie. We discussed his desire to get the appropriate interventions in place for his mother so she can be stabilized. He has been kept up to date with the nurse and is in agreement with voluntary placement and states the ultimate goal is to see his mother get back to [facility]. I inquired about mental health services at [facility], and he states there are no mental health professionals that come to the site, nor is there an inpatient program that he is aware of. The son states he will be in to see his mother later on this afternoon, and i advised him that I would be stopping back by to see the mother as well. I thanked the son for this information and his time. He had no further issues that needed an immediate resolution, and we agreed that we would see each other later.
--- NOTE | 2022-11-05 11:06 | NUR ---
Jean barlow infromed of MD Schmid to visit with pt for assessment and treatment plan.
--- NOTE | 2022-11-05 12:13 | NUR ---
Son Queenie contacted: Discussion to speak with mom Josee about facility transfer voluntary to [facility] facility of care. Queenie stated will return to hospital shortly for conversation wit mom on bes route forward.
--- NOTE | 2022-11-05 13:26 | NUR ---
Hayley Philip contacted to refuse pt admission. Notified Charge nurse
--- NOTE | 2022-11-05 15:00 | NUR ---
Clinical packet sent to [facility] for a voluntary in patient placement at a psych unit. [facility] [employer] [facility]: [phone]; F: [phone]
--- NOTE | 2022-11-05 15:26 | NUR ---
engineering secretary and Community Engagement Representative coordinating options of facility arrangement. Notified family Queenie.
--- NOTE | 2022-11-05 15:30 | NUR ---
Follow up call made to [facility] to check the status of placement. Per receptionist/telephone operator, he requesteed i resend to the new fax number, but he will look for the first fax to get the process generated. [facility]: [phone]; F: [phone]
--- NOTE | 2022-11-05 15:45 | NUR ---
Received call from Joaquina at [facility] who requested physician reports on the patient. I advised her that I will send in additional documentation related to the patient. We reiterated the patient going in as a voluntary placement and that she is willing to sign herself in. Joaquina advised that son is also present with the patient and is her support. [facility]: [phone]; F: [phone]
--- NOTE | 2022-11-05 17:34 | NUR ---
[facility] accepting pt Josee Locke to Unit 5 after 1900 via BLS transport voluntary assignment to [facility] facility. Gave report to Cindy HERNÁNDEZ.
--- NOTE | 2022-11-05 17:36 | NUR ---
Informed son Queenie: of [facility] contact infor. [employer] Address: [address] [place] [id number] Hours: Open 24 hours
[2022-11-05 23:36] VITALS: BP_SYST 178
--- NOTE | 2022-11-05 23:45 | NUR ---
Patient to be transferred to [facility]. Is being transferred due to higher level of care. Receiving facility has accepting physician and available space. ER physician has signed transfer form. Patient or responsible libertarian has agreed to transfer and signed form. Patient belongings inventoried and will be sent with patient. Copy of nursing notes, lab reports, EKG, Physicians Orders and X-rays to be sent with patient. Report called to Cindy at receiving facility. Receiving physician is . [facility] has been called for transfer. ETA is [id number].
== END 2022-11-05 23:36 | DRG 881 ==
LOC: SED 20:21 → SMU 11-05 17:07
PROVIDERS: ADMIT Family Medicine; ATTEND Family Medicine
DX: F32.A Depression, unspecified (principal); R45.851 Suicidal ideations; E11.9 Type 2 diabetes mellitus without complications; I10 Essential (primary) hypertension; E78.5 Hyperlipidemia, unspecified; Z20.822 Contact with and (suspected) exposure to COVID-19; Z88.5 Allergy status to narcotic agent; Z88.0 Allergy status to penicillin; Z79.899 Other long term (current) drug therapy
CPT/HCPCS: 36415; 80053; 80307; 81000; 82962; 85025; 87086; 99285; G0480; G0481; G0482

== ENCOUNTER 2023-04-15 16:42 | Emergency (ER) | payer OTHER, MEDICARE ==
[~2023-04-15] VITALS: Ht 167.6 cm; Wt 76.2 kg
[~2023-04-15 16:42] MED LIST changes: -LISI20TA30 PO; +PRO10 PO; -PRO20 PO; -ROSU20TA2 PO; -SITA100T11 PO
[2023-04-15 16:46] VITALS: BP_SYST 161; PULSE 80; RESP 20; TEMP 98; O2SAT 100
--- NOTE | 2023-04-15 16:50 | NUR ---
Patient triaged. VSS and patient appears in no acute distress at this time. Accompanied by AMBULANCE EMT'S , awaiting available bed, and MD notified of need for MSE.
--- NOTE | 2023-04-15 16:57 | NUR ---
Patient to ER bed 07 to gown for evaluation. Side rails up.
--- NOTE | 2023-04-15 17:00 | NUR ---
Pt brought by Kyra ZAVALA&Juliann4, pt presents to ER with SOB , wheezing , Hx of asthma , skin pink and warm , cap refill <3, respirations even and unlabored, will cont to monitor.
--- NOTE | 2023-04-15 17:05 | NUR ---
Dr Estrada evaluating patient at bedside
[2023-04-15] MEDS ORDERED: predniSONE 20 MG TABLET PO ONE (17:15)
[2023-04-15] MEDS ORDERED: IPRATROPIUM/ALBUTEROL SULFATE 3 ML AMPUL.NEB (DUONEB) INH ONE (17:15)
--- NOTE | 2023-04-15 17:19 | NUR ---
covid and flu nasal swab collected and sent to lab
[2023-04-15] MEDS ORDERED: PRED20TA PO (17:21)
[2023-04-15] MEDS ORDERED: ALBMDI INH (17:21)
[2023-04-15] MEDS ORDERED: CETI1TAB2 PO (17:22)
--- NOTE | 2023-04-15 18:18 | NUR ---
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
--- NOTE | 2023-04-15 18:50 | NUR ---
Pt states she feels better, Dr Bruner notified about pt's O2 90%, Per Dr Bruner he will assess patient prior discharge.
--- NOTE | 2023-04-15 18:52 | NUR ---
Dr Bruner assessing patient at this time, per Dr Bruner patient can be discharge at this time.
[2023-04-15 18:55] VITALS: BP_SYST 158; PULSE 80; RESP 20; TEMP 98; O2SAT 94
--- NOTE | 2023-04-15 18:56 | NUR ---
Patient and Pt's Son given written and verbal discharge instructions and verbalizes understanding. ER MD discussed with patient the results and treatment provided. Patient in stable condition. ID arm band removed. Rx of Ventolin, Cetirizine,Prednisone given. Patient educated on pain management and to follow up with PMD. Pain Scale 0/10 . Opportunity for questions provided and answered. Medication side effect fact sheet provided.
[2023-04-16] MEDS ORDERED: ZIT250 PO (18:34)
[2023-04-19] MEDS ORDERED: MAGN400T10 PO (16:47)
[2023-04-19] MEDS ORDERED: TRAM50TA2 PO (16:47)
[2023-04-19] MEDS ORDERED: TIZA-185 PO (16:47)
[2023-04-19] MEDS ORDERED: VITD2000 PO (16:47)
[2023-04-19] MEDS ORDERED: D-ME120S20 PO (16:47)
[2023-04-19] MEDS ORDERED: METH-634 PO (16:47)
[2023-04-19] MEDS ORDERED: SENN8.6T19 PO (16:47)
[2023-04-19] MEDS ORDERED: INSU100I22 SUBCUT (16:47)
[2023-04-19] MEDS ORDERED: LINA5TAB2 PO (16:47)
[2023-04-19] MEDS ORDERED: ALBMDI INH (16:47)
[2023-04-19] MEDS ORDERED: TAMS0.4C96 PO (16:47)
[2023-04-19] MEDS ORDERED: TIMO5DRO16 RIGHT EYE (16:47)
== END 2023-04-15 18:55 | disposition home or self-care (01) ==
LOC: SED 16:42
DX: J45.901 Unspecified asthma with (acute) exacerbation (principal); R06.02 Shortness of breath; R05.9 Cough, unspecified; E11.9 Type 2 diabetes mellitus without complications; I10 Essential (primary) hypertension; E78.5 Hyperlipidemia, unspecified; Z88.0 Allergy status to penicillin; Z88.5 Allergy status to narcotic agent; Z79.899 Other long term (current) drug therapy; Z20.822 Contact with and (suspected) exposure to COVID-19
CPT/HCPCS: 99285; 71045; 87426; 36415; 94640; 87804 ×2; J7512

== ENCOUNTER 2023-04-27 18:57 | Emergency (ER) | payer OTHER, MEDICARE ==
[~2023-04-27] VITALS: Ht 152.4 cm; Wt 80.3 kg
[~2023-04-27 18:57] MED LIST changes: +ALBMDI INH; +CETI1TAB2 PO; +D-ME120S20 PO; +GLIP10TA11 PO; -GLIP10TA21 PO; +INSU100I22 SUBCUT; +LINA5TAB2 PO; +MAGN400T10 PO; +METH-634 PO; +PRED20TA PO; +SENN8.6T19 PO; +TAMS0.4C96 PO; +TIMO5DRO16 RIGHT EYE; +TIZA-185 PO; +TRAM50TA2 PO; +VITD2000 PO
[2023-04-27 19:45] VITALS: BP_SYST 120; PULSE 87; RESP 20; O2SAT 96
[2023-04-27] MEDS ORDERED: NACL 0.9% 1,000 ML IV ONE (22:15)
[2023-04-27 22:39] LABS: EOSINOPHILS % (AUTO) 0.2 % (0.0-4.0); HEMATOCRIT 40.6 % (36-48); HEMOGLOBIN 13.5 g/dL (12.0-16.0); LYMPHOCYTES % (AUTO) 11.6 % (20.5-51.5); MEAN CORPUSCULAR HEMOGLOBIN 32 pg (27-31); MEAN CORPUSCULAR HGB CONC 33 % (32-36); MEAN CORPUSCULAR VOLUME 95 fL (79.0-98.0); MONOCYTES # (AUTO) 1.3 K/uL (0.0-1.0); MONOCYTES % (AUTO) 7.2 % (1.7-9.3); NEUTROPHILS # (AUTO) 14.3 K/uL (1.8-7.7); PLATELET COUNT (AUTO) 182 K/uL (130-430); RED BLOOD CELL COUNT(AUTO) 4.26 MIL/uL (4.2-6.2); RED CELL DISTRIBUTION WIDTH 13.5 % (9.0-15.0); WHITE BLOOD COUNT (AUTO) 17.6 K/uL (4.8-10.8)
[2023-04-27 22:48] LABS: ANION GAP 7 (5-15); CALCIUM 8.4 mg/dL (8.4-11.0); CARBON DIOXIDE 31 mmol/L (23-29); CHLORIDE 102 mmol/L (98-107); CREATININE 1.22 mg/dL (0.55-1.30); GLUCOSE 233 mg/dL (74-106); POTASSIUM 4.1 mmol/L (3.5-5.1); SODIUM SERUM 140 mmol/L (136-145); UREA NITROGEN, BLOOD 33 mg/dL (8-21)
[2023-04-27 22:52] LABS: ALANINE AMINOTRANSFERASE 32 U/L (12-78); ALBUMIN 2.7 g/dL (3.4-4.8); ASPARTATE AMINOTRANSFERASE 13 U/L (10-37); TOTAL BILIRUBIN 0.4 mg/dL (0.0-1.0); TOTAL PROTEIN, SERUM 5.9 g/dL (6.4-8.3)
[2023-04-27 23:55] LABS: BILIRUBIN,URINE NEGATIVE (NEGATIVE); BLOOD, URINE NEGATIVE (NEGATIVE); CLARITY/URINE CLEAR (CLEAR); COLOR,URINE YELLOW (YELLOW); GLUCOSE,URINE TRACE (NEGATIVE); KETONES,URINE NEGATIVE (NEGATIVE); LEUKOCYTE ESTERASE ,URINE NEGATIVE (NEGATIVE); NITRITE, URINE NEGATIVE (NEGATIVE); PROTEIN URINE NEGATIVE (NEGATIVE); UROBILINOGEN,URINE 0.2 (0.2-1.0)
[2023-04-28] MEDS ORDERED: ACET-2634 PO (01:09)
[2023-04-28 04:21] VITALS: BP_SYST 158; PULSE 75; RESP 17; TEMP 98.4; O2SAT 98
== END 2023-04-28 04:21 | disposition home or self-care (01) ==
LOC: SED 18:57
DX: S43.402A Unspecified sprain of left shoulder joint, initial encounter (principal); S09.90XA Unspecified injury of head, initial encounter; J45.909 Unspecified asthma, uncomplicated; E11.9 Type 2 diabetes mellitus without complications; I10 Essential (primary) hypertension; E78.5 Hyperlipidemia, unspecified; Z88.0 Allergy status to penicillin; Z88.5 Allergy status to narcotic agent; Z79.899 Other long term (current) drug therapy; W19.XXXA Unspecified fall, initial encounter; Y93.89 Activity, other specified; Y92.89 Other specified places as the place of occurrence of the external cause; Y99.8 Other external cause status
CPT/HCPCS: 99285; 70450; 96360; 71045; 80053; 85025; 87040; 36415; 93005; 72125; 72192; 83605; 81003; 73020; 76376; J7030

== ENCOUNTER 2023-08-05 19:07 | Emergency (ER) | payer OTHER, MEDICARE ==
[~2023-08-05 19:07] MED LIST changes: +ACET-2634 PO
== END 2023-08-05 19:43 | disposition left against medical advice (07) ==
LOC: SED 19:07
DX: R53.1 Weakness (principal); Z53.21 Procedure and treatment not carried out due to patient leaving prior to being seen by health care provider
CPT/HCPCS: 99281

== ENCOUNTER 2023-11-02 17:30 | Inpatient (IN) | payer OTHER, MEDICARE ==
[~2023-11-02] VITALS: Ht 152.4 cm; Wt 84.1 kg
[2023-11-02 17:30] VITALS: BP_SYST 147; PULSE 77; RESP 20; TEMP 98.3; O2SAT 100
[~2023-11-02 17:30] MED LIST changes: +TIMO5DRO16 EACH EYE; -TIMO5DRO16 RIGHT EYE
[2023-11-02] MEDS: IPRATROPIUM BROM 0.5 MG/2.5 ML VIAL.NEB (ATROVENT) INH ONE (18:48)
[2023-11-02] MEDS: ALBUTEROL SULFATE 0.083% 2.5 MG/3 ML VIAL.NEB INH ONE (18:48)
[2023-11-02 19:10] LABS: BASOPHILS % (AUTO) 0.5 % (0.0-2.0); EOSINOPHILS # (AUTO) 1.1 K/uL (0.0-0.4); EOSINOPHILS % (AUTO) 13.2 % (0.0-4.0); HEMATOCRIT 38.3 % (36-48); HEMOGLOBIN 13.4 g/dL (12.0-16.0); LYMPHOCYTES # (AUTO) 2.2 K/uL (1.0-5.5); MEAN CORPUSCULAR HEMOGLOBIN 34 pg (27-31); MEAN CORPUSCULAR HGB CONC 35 % (32-36); MEAN CORPUSCULAR VOLUME 96 fL (79.0-98.0); MONOCYTES # (AUTO) 0.7 K/uL (0.0-1.0); MONOCYTES % (AUTO) 8.2 % (1.7-9.3); NEUTROPHILS # (AUTO) 4.6 K/uL (1.8-7.7); NEUTROPHILS % (AUTO) 53.1 % (40.0-70.0); PLATELET COUNT (AUTO) 165 K/uL (130-430); RED BLOOD CELL COUNT(AUTO) 3.98 MIL/uL (4.2-6.2); RED CELL DISTRIBUTION WIDTH 13.3 % (9.0-15.0); WHITE BLOOD COUNT (AUTO) 8.7 K/uL (4.8-10.8)
[2023-11-02 19:22] LABS: ANION GAP 9 (5-15); CALCIUM 9.2 mg/dL (8.4-11.0); CARBON DIOXIDE 29 mmol/L (23-29); CHLORIDE 106 mmol/L (98-107); CREATININE 0.94 mg/dL (0.55-1.30); GLUCOSE 114 mg/dL (74-106); POTASSIUM 4.1 mmol/L (3.5-5.1); SODIUM SERUM 144 mmol/L (136-145); UREA NITROGEN, BLOOD 23 mg/dL (8-21)
[2023-11-02 19:30] LABS: PROTHROMBIN TIME 10.6 SECS (9.5-12.5)
[2023-11-02 19:38] LABS: ALANINE AMINOTRANSFERASE 38 U/L (12-78); ALBUMIN 3.1 g/dL (3.4-4.8); ASPARTATE AMINOTRANSFERASE 22 U/L (10-37); BILIRUBIN,DIRECT 0.1 mg/dL (0.0-0.3); TOTAL BILIRUBIN 0.5 mg/dL (0.0-1.0); TOTAL PROTEIN, SERUM 6.8 g/dL (6.4-8.3)
[2023-11-02 19:53] LABS: BILIRUBIN,URINE NEGATIVE (NEGATIVE); BLOOD, URINE NEGATIVE (NEGATIVE); CLARITY/URINE CLEAR (CLEAR); COLOR,URINE YELLOW (YELLOW); GLUCOSE,URINE NEGATIVE (NEGATIVE); KETONES,URINE NEGATIVE (NEGATIVE); LEUKOCYTE ESTERASE ,URINE NEGATIVE (NEGATIVE); NITRITE, URINE NEGATIVE (NEGATIVE); PROTEIN URINE NEGATIVE (NEGATIVE); UROBILINOGEN,URINE 0.2 (0.2-1.0)
[2023-11-02 20:34] LABS: INFLUENZA TYPE A Negative (NEGATIVE); INFLUENZA TYPE B NEGATIVE (NEGATIVE)
[2023-11-02 20:35] LABS: COVID19 ANTIGEN SOFIA FIA NEGATIVE (NEGATIVE)
[2023-11-02] MEDS ORDERED: PROMETHAZINE-DM 6.25 MG-15 MG/5 ML UDC PO PRN (22:00)
[2023-11-02 22:15] VITALS: BP_SYST 161; PULSE 76; RESP 20; TEMP 97.6
[2023-11-02] MEDS: methylPREDNISolone SOD SUCC/PF 62.5 MG/ML VIAL IVP SCH (22:42)
[2023-11-02] MEDS: LOSARTAN POTASSIUM 50 MG TABLET (COZAAR) PO SCH (22:43)
[2023-11-02] MEDS: ACETAMINOPHEN 500 MG TABLET PO SCH (22:43)
[2023-11-02] MEDS: AZITHROMYCIN 500 MG in NS 250 ML IV SCH (23:11)
[2023-11-02] MEDS: AZITHROMYCIN 500 MG/VIAL (ZITHROMAX) IV ONE (23:25)
[2023-11-03] VITALS (15 sets, daily range): BP systolic 138–184; PULSE 67–79; RESP 16–18; TEMP 97.3–98.6; O2SAT 95–99
[2023-11-03] MEDS: cloNIDine HCL 0.1 MG TABLET PO PRN (00:45)
[2023-11-03] MEDS: LEVOTHYROXINE SODIUM 0.025 MG TABLET PO SCH (06:16)
[2023-11-03] MEDS: INSULIN REGULAR, HUMAN 100 UNITS/ML, 3 ML VIAL (humuLIN R) SUBCUT PRN (06:52)
[2023-11-03] MEDS: LevALBUTEROL HCL 1.25 MG/0.5 ML *CONC.* VIAL.NEB (XOPENEX CONC.) INH SCH (07:11)
[2023-11-03] MEDS: SENNOSIDES 8.6 MG TABLET PO SCH (08:57)
[2023-11-03] MEDS: CHOLECALCIFEROL (VITAMIN D3) 2,000 UNIT TABLET PO SCH (08:57)
[2023-11-03] MEDS: FLUoxetine HCL 10 MG CAPSULE (PROzac) PO SCH (08:57)
[2023-11-03] MEDS: TAMSULOSIN HCL 0.4 MG CAP PO SCH (08:57)
[2023-11-03] MEDS: CARVEDILOL 12.5 MG TABLET (COREG) PO SCH (08:58)
[2023-11-03] MEDS: MAGNESIUM OXIDE 400 MG TABLET PO SCH (08:58)
[2023-11-03] MEDS: tiZANidine HCL 4 MG TABLET PO SCH (08:58)
[2023-11-03] MEDS: INSULIN GLARGINE 100 UNITS/ML, 10 ML VIAL SUBCUT SCH (09:00)
[2023-11-03] MEDS: TIMOLOL MALEATE 0.25% OPHTHALMIC DROPS 5 ML RIGHT EYE SCH (09:00)
[2023-11-03] MEDS ORDERED: NON-FORMULARY MEDICATION (Cetirizine Hcl/Pseudoephedrine (Zyrtec-D Tablet) 1 TAB) PO SCH (09:00)
[2023-11-03] MEDS ORDERED: KETO5DRO85 EACH EYE (10:07)
[2023-11-03] MEDS ORDERED: METH-799 PO (10:07)
[2023-11-03] MEDS ORDERED: ACET-2634 PO (10:11)
[2023-11-03] MEDS ORDERED: INSU100V44 SQ (10:11)
[2023-11-03] MEDS ORDERED: IPRA3AMP9 INH (10:12)
[2023-11-03] MEDS ORDERED: ALBMDI INH (10:32)
[2023-11-03] MEDS ORDERED: FERR324T22 PO (10:32)
[2023-11-03] MEDS ORDERED: BETH5TAB10 PO (10:32)
[2023-11-03] MEDS ORDERED: AZEL137S7 NS (10:32)
[2023-11-03] MEDS ORDERED: LIP80 PO (10:32)
[2023-11-03] MEDS: LevALBUTEROL HCL 1.25 MG/0.5 ML *CONC.* VIAL.NEB (XOPENEX CONC.) INH PRN (11:27)
[2023-11-03] MEDS: ENOXAPARIN SODIUM 40 MG/0.4 ML SYRINGE SUBCUT SCH (21:18)
[2023-11-04] VITALS (8 sets, daily range): BP systolic 140–178; PULSE 70–81; RESP 17–20; TEMP 97.8–98.3; O2SAT 94–98
[2023-11-04] MEDS: ALPRAZolam 0.25 MG TABLET PO ONE (03:54)
[2023-11-04 05:57] LABS: BASOPHILS % (AUTO) 0.1 % (0.0-2.0); HEMATOCRIT 38.7 % (36-48); HEMOGLOBIN 13.3 g/dL (12.0-16.0); LYMPHOCYTES # (AUTO) 0.8 K/uL (1.0-5.5); LYMPHOCYTES % (AUTO) 5.8 % (20.5-51.5); MEAN CORPUSCULAR HEMOGLOBIN 33 pg (27-31); MEAN CORPUSCULAR HGB CONC 34 % (32-36); MEAN CORPUSCULAR VOLUME 96 fL (79.0-98.0); MONOCYTES # (AUTO) 0.3 K/uL (0.0-1.0); MONOCYTES % (AUTO) 2.2 % (1.7-9.3); NEUTROPHILS # (AUTO) 13.2 K/uL (1.8-7.7); NEUTROPHILS % (AUTO) 91.9 % (40.0-70.0); PLATELET COUNT (AUTO) 169 K/uL (130-430); RED BLOOD CELL COUNT(AUTO) 4.05 MIL/uL (4.2-6.2); RED CELL DISTRIBUTION WIDTH 13.2 % (9.0-15.0); WHITE BLOOD COUNT (AUTO) 14.4 K/uL (4.8-10.8)
[2023-11-04 06:23] LABS: ANION GAP 11 (5-15); CALCIUM 9.1 mg/dL (8.4-11.0); CARBON DIOXIDE 26 mmol/L (23-29); CHLORIDE 104 mmol/L (98-107); CREATININE 0.97 mg/dL (0.55-1.30); GLUCOSE 267 mg/dL (74-106); POTASSIUM 3.8 mmol/L (3.5-5.1); SODIUM SERUM 141 mmol/L (136-145); UREA NITROGEN, BLOOD 28 mg/dL (8-21)
[2023-11-04] MEDS: TEMAZEPAM 15 MG CAPSULE PO SCH (23:10)
[2023-11-04] MEDS: METHYLPREDNISOLONE SOD SUCC 40 MG/ML VIAL IVP SCH (23:10)
[2023-11-05] VITALS (7 sets, daily range): BP systolic 116–154; PULSE 67–76; RESP 18–20; TEMP 96.4–98.1; O2SAT 91–98
[2023-11-06] VITALS (11 sets, daily range): BP systolic 149–175; PULSE 59–68; RESP 16–19; TEMP 97–97.8; O2SAT 91–95
[2023-11-06] MEDS: traMADol HCL HCL 50 MG TABLET (ULTRAM) PO PRN (04:08)
[2023-11-06 07:31] LABS: ALANINE AMINOTRANSFERASE 43 U/L (12-78); ALBUMIN 2.7 g/dL (3.4-4.8); ANION GAP 8 (5-15); ASPARTATE AMINOTRANSFERASE 25 U/L (10-37); CALCIUM 8.7 mg/dL (8.4-11.0); CARBON DIOXIDE 28 mmol/L (23-29); CHLORIDE 105 mmol/L (98-107); CREATININE 0.88 mg/dL (0.55-1.30); GLUCOSE 233 mg/dL (74-106); POTASSIUM 3.4 mmol/L (3.5-5.1); SODIUM SERUM 141 mmol/L (136-145); TOTAL BILIRUBIN 0.4 mg/dL (0.0-1.0); TOTAL PROTEIN, SERUM 6.2 g/dL (6.4-8.3); UREA NITROGEN, BLOOD 25 mg/dL (8-21)
[2023-11-07] VITALS (8 sets, daily range): BP systolic 124–136; PULSE 59–70; RESP 16–18; TEMP 97.6–98.7; O2SAT 92–98
[2023-11-07] MEDS: POTASSIUM CHLORIDE 20 MEQ/PKT PACKET PO ONE (12:56)
== END 2023-11-07 15:37 | disposition home or self-care (01) | DRG 177 ==
LOC: SED 17:30 → STU 20:57 → SMU 11-04 16:00
PROVIDERS: ADMIT Family Medicine; ATTEND Family Medicine
DX: J15.69 Pneumonia due to other Gram-negative bacteria (principal); J96.21 Acute and chronic respiratory failure with hypoxia; J44.0 Chronic obstructive pulmonary disease with (acute) lower respiratory infection; J44.1 Chronic obstructive pulmonary disease with (acute) exacerbation; J18.9 Pneumonia, unspecified organism; Z20.822 Contact with and (suspected) exposure to COVID-19; J20.9 Acute bronchitis, unspecified; I10 Essential (primary) hypertension; M19.90 Unspecified osteoarthritis, unspecified site; E11.9 Type 2 diabetes mellitus without complications; E03.9 Hypothyroidism, unspecified; Z88.0 Allergy status to penicillin; Z88.5 Allergy status to narcotic agent
CPT/HCPCS: 36415; 71045; 80048; 80053; 80076; 81001; 81003; 82948; 83605; 83735; 83880; 84484; 85025; 85610; 85730; 94640; 94760; 97116-GP; 97530-GP; 99285; G0378; J0456; J1030; J1650; J1815; J2930; J7050; J7612

== ENCOUNTER 2024-02-14 12:22 | Emergency (ER) | payer OTHER, MEDICARE ==
[~2024-02-14] VITALS: Ht 152.4 cm; Wt 70.3 kg
[~2024-02-14 12:22] MED LIST changes: +AZEL137S7 NS; +BETH5TAB10 PO; -CETI1TAB2 PO; -D-ME120S20 PO; +FERR324T22 PO; +INSU100V44 SQ; +IPRA3AMP9 INH; +KETO5DRO85 EACH EYE; +LIP80 PO; -METH-634 PO; +METH-799 PO; -PRED20TA PO
[2024-02-14 12:45] VITALS: BP_SYST 179; PULSE 68; RESP 21; TEMP 97; O2SAT 96
[2024-02-14] MEDS: KETOROLAC TROMETHAMINE 15 MG VIAL IVP ONE (13:24)
[2024-02-14] MEDS: methylPREDNISolone SOD SUCC/PF 62.5 MG/ML VIAL IVP ONE (13:24)
[2024-02-14 14:05] LABS: BASOPHILS % (AUTO) 0.5 % (0.0-2.0); EOSINOPHILS # (AUTO) 0.6 K/uL (0.0-0.4); EOSINOPHILS % (AUTO) 6.9 % (0.0-4.0); HEMATOCRIT 38.5 % (36-48); HEMOGLOBIN 13.5 g/dL (12.0-16.0); LYMPHOCYTES # (AUTO) 3.4 K/uL (1.0-5.5); LYMPHOCYTES % (AUTO) 42.5 % (20.5-51.5); MEAN CORPUSCULAR HEMOGLOBIN 34 pg (27-31); MEAN CORPUSCULAR HGB CONC 35 % (32-36); MEAN CORPUSCULAR VOLUME 98 fL (79.0-98.0); MONOCYTES # (AUTO) 0.9 K/uL (0.0-1.0); MONOCYTES % (AUTO) 11.2 % (1.7-9.3); NEUTROPHILS # (AUTO) 3.1 K/uL (1.8-7.7); NEUTROPHILS % (AUTO) 38.9 % (40.0-70.0); PLATELET COUNT (AUTO) 158 K/uL (130-430); RED BLOOD CELL COUNT(AUTO) 3.93 MIL/uL (4.2-6.2); RED CELL DISTRIBUTION WIDTH 14.1 % (9.0-15.0)
[2024-02-14] MEDS ORDERED: PRED50TA PO (14:19)
[2024-02-14] MEDS ORDERED: TRAM50TA2 PO (14:19)
[2024-02-14 14:29] LABS: ANION GAP 9 (5-15); CALCIUM 8.9 mg/dL (8.4-11.0); CARBON DIOXIDE 27 mmol/L (23-29); CHLORIDE 111 mmol/L (98-107); CREATININE 0.93 mg/dL (0.55-1.30); GLUCOSE 61 mg/dL (74-106); SODIUM SERUM 147 mmol/L (136-145); UREA NITROGEN, BLOOD 25 mg/dL (8-21)
[2024-02-14 15:53] VITALS: BP_SYST 136; PULSE 68; RESP 21; TEMP 97; O2SAT 96
== END 2024-02-14 15:54 | disposition home or self-care (01) ==
LOC: SED 12:22
DX: J44.1 Chronic obstructive pulmonary disease with (acute) exacerbation (principal); E11.9 Type 2 diabetes mellitus without complications; I10 Essential (primary) hypertension; E78.5 Hyperlipidemia, unspecified; Z88.0 Allergy status to penicillin; Z88.5 Allergy status to narcotic agent; Z79.899 Other long term (current) drug therapy; Z79.2 Long term (current) use of antibiotics
CPT/HCPCS: 99285; 96374; 71045; 96375; 80048; 83880; 85025; 84484; 36415; 93005; 82948; J1885; J2930